=== PATIENT | female | born 1965 | race Caucasian/White ===

== ENCOUNTER 2024-09-28 11:24 | Outpatient (REF) | payer MEDICAID, SELFPAY ==
--- NOTE | ~2024-09-28 | XR_ITS ---
CLINICAL HISTORY: M25.559 - Pain in unspecified hip 1 view pelvis Comparison: None Findings: Severe degenerative change of both hip joints, xqnpv-[id number]-jkob-left. There is complete loss of the joint space bilaterally. There is also bulky osteophyte formation with likely intra-articular loose bodies. On the right, there is suggestion of subtle flattening of the femoral head spanning from the mid aspect of the far lateral aspect. Bulky osteophyte formation seen of the right femoral head/neck junction. Partial sacralization of the L5 vertebral body. No acute fracture or dislocation. Bilateral tubal ligation clips. IMPRESSION: Severe bilateral hip DJD, xqivo-kzpbuht-qvxo-left. Findings suggest subcortical insufficiency fracture of the right femoral head. This document has been electronically signed by: Guy Colorado MD on 09/30/2024 08:44:04
== END 2024-09-28 11:25 | disposition home or self-care (01) ==
LOC: HO.HOSX 11:24
PROVIDERS: PCP Nurse Practitioner Family; Visit Provider Orthopaedic Surgery
DX: M25.559 Pain in unspecified hip (principal); M16.0 Bilateral primary osteoarthritis of hip
CPT/HCPCS: 72170; 99202

== ENCOUNTER 2024-09-28 11:24 | Outpatient (AMB) | payer MEDICAID, SELFPAY ==
--- NOTE | 2024-09-28 11:35 | A.OFFVIS_ITS ---
Intake Visit Reasons: [employer]-B/L hip osteoarthritis Intake Note: Ella is a 59 year old female who presents today as a new patient for a second opinion of her Bilateral Hip OA. Patient is wheelchair dependent and on chronic opiates since 2021. Current smoker. Seen at [facility] with Dr. Diaz who is requiring 30 days free of nicotine. She reports that she needs to do the patch in order to quit. She explains that she has significant anxiety today HPI HPI [employer]AD [employer]-B/L hip osteoarthritis: Details: Ella is a 59 year old female who presents today as a new patient for a second opinion of her Bilateral Hip OA. Patient is wheelchair dependent and on chronic opiates since 2021. Current smoker. Seen at [facility] with Dr. Diaz who is requiring 30 days free of nicotine. She reports that she needs to do the patch in order to quit. She explains that she has significant anxiety today. He will describes proximally 2 years of severe bilateral hip pain. Both hips prevent her from walking comfortably. She uses a walker while at home and can not leave the house for significant periods of time without having to use a wheelchair. She feels disabled and the quality of her life is poor. She had bilateral knee replacements at [facility] many years ago and subsequently became dependent on opioids for which she started taking Suboxone and then was switched to methadone. She is unsure exactly how much methadone she is taking but she is unsure why she is taking it. She also smokes about 3 cigarettes a day. She is decreasing and has patches but was told that she needed to stop nicotine consumption completely. [facility] Surgical History (Updated 09/28/24 @ 11:46 by Ange Garcia CMA) History of total bilateral knee replacement (Unknown) Social History (Updated 09/28/24 @ 11:45 by Ange Garcia CMA) Patient Tobacco Use Status: Current everyday Tobacco user Cigarettes Per Day: 2 Physical Exam Extrem Other: There are bilateral impingement testing with groin pain reproduced on internal rotation. Antalgic gait with hip flexion on ambulation. 2+ dorsalis pedis pulse with healthy-appearing lower leg vascular status. Results Reviewed Results Reviewed: I personally reviewed relevant radiographs. Severe bilateral hip arthritis with loss of femoral head architecture Assessment & Plan Assessment & Plan (1) Osteoarthritis of hips, bilateral: Code(s): M16.0 - Bilateral primary osteoarthritis of hip Category: Medical Plan: This is a 59-year-old woman with severe osteoarthritis bilateral hips. Quality of her life is severely diminished and I recommend hip replacements. This is in many ways very straight forward. She has severe arthritis and, medically speaking, she appears to be low risk. Her primary risk factors include opioid dependence and mild nicotine dependence. She is deconditioned and overweight but this is acceptable and we expected given the extent of her arthritis. I reviewed this with her and I recommend proceeding forward with completion of smoking cessation, ambulation as tolerated, physical therapy for preoperative co nditioning and medical clearance with her primary care doctor. Furthermore I do think she would benefit from decreasing her methadone usage but I would leave this up to her for now and see if she can come down slightly over the next several months. I suspect that this surgery will occur in 3-4 months' time. I discussed the risks, benefits and alternatives with her including the risk of infection, dislocation, fracture, continued pain, need for further surgery. She expressed understanding and we will proceed forward accordingly. I have shared her information with our nurse navigator who will contact the patient going forward. Orders: Orders PT Evaluation and Treatment Today M16.0 - Bilateral primary osteoarthritis of hip XR pelvis 1-2V Today M25.559 - Pain in unspecified hip Coding Level of Care Code New Pt Level 4 (10524) Diagnoses Osteoarthritis of hips, bilateral M16.0
--- OUTSIDE RECORDS SUMMARY | 2024-09-28 14:23 | XMS_ITS | Data Portability ---
Author Organization [facility], [facility] Address [address] [place] [address] Care Team Providers Care Associate Principal Name Role Phone CARLIN THEODORE OTHER Assessment Encounter Date Assessment Date Assessment LastModified by Organization Details LastModified Time 12/25/2011 12/25/2011 Pelvic ultrasoun d: Technique: Study was performed with transabdominal and transvaginal technique. Transvaginal study was performed to better visualize both adnexa. The uterus is normal in size and diffusely heterogeneous in echotexture measuring 8.3 x 3.1 x 4.8 cm . A 3.0 cm rounded fibroid is seen anteriorly. The endometrium was difficult to define due to heterogeneous echotexture. The endometrium is measured as 3 mm. No adnexal mass lesion is seen. Both ovaries are visualized and normal in appearance. The right ovarian volume is 1.5 cc and left ovarian volume 4.6 cc. Impression: Heterogeneous uterine echotexture with a discrete 3 cm anterior uterine fibroid. Not available 12/25/2011 10:45:33 01/21/2012 01/21/2012 Bilateral digita l screening mammogram: Bilateral digital screening mammogram compared with prior mammograms. Breast tissue pattern is heterogeneously dense bilaterally limiting the sensitivity of mammography. Interpretation was made with the benefit of CAD. No dominant mass lesion or suspicious microcalcifications are seen in either breast. Impression: No mammographic evidence of malignancy. Annual screening mammography is recommended. ??BI-RADS 1: NEGATIVE Not available 01/21/2012 14:45:44 Plan of Treatment Reminders Order Date Submit Date Provider Last Modified By Organization Details Last Modified Time Details Appointments None recorded. Lab lipid panel 2011 012 [facility], [address] [place], [address], 3 03:04:42 Pap liquid based, reflex HPV, ascu 2011 012 [facility], [address] [place] [address], [address], 3 03:04:44 vitamin D,25-hydrox y 2011 012 [facility], [address] [place] [address], [address], 3 03:03:30 comprehensi ve metabolic panel 2011 012 [facility], [address] [place] [address], [address], 3 03:03:30 thyroid stimulating hormone (TSH) 2011 012 [facility], [address] [place] [address], [address], 3 03:03:30 CBC 2011 012 [facility], [address] [place] [address], [address], 3 03:03:30 Referral None recorded. Procedures None recorded. Surgeries None recorded. Imaging mammogram, screening - routine 2011 012 [facility], [address] [place] [address], [address], 3 03:04:42 ultrasound, pelvic transabdomi nal & transvagina l - worsening dyspareunia - pt questions obstruction 2011 012 [facility], [address] [place] [address], [address], 3 03:02:19 Medication Orders amoxicillin -potassium clavulanate 1,000 mg-62.5 mg tablet,ext. rel 12hr 2010 011 [id number], [address], [place], [id number], 3 05:39:26 Zithromax Z-Gerardo 250 mg tablet 2010 011 [facility] #19836, [address], [place], [id number], 3 05:39:26 Culturelle 10 billion cell capsule 2010 011 [facility] #78307, [address], [place], [id number], 3 05:39:26 prednisone 10 mg tablet 2010 011 [facility] #08294, [address], [place], [id number], 3 05:36:51 nicotine 21 mg/24 hr daily transdermal patch 2011 012 [facility], [address] [place] [address], [address], 3 03:05:47 nicotine (polacrilex ) 2 mg buccal lozenge 2011 012 [facility], [address] [place], [address], 3 03:03:35 DuoNeb 0.5 mg-3 mg(2.5 mg base)/3 mL solution for nebulizatio n 2011 012 [facility], [address] [place], [address], 3 03:04:50 Flovent HFA 220 mcg/actuati on aerosol inhaler 2011 012 [facility], [address] [place], [address], 3 03:03:35 Accolate 20 mg tablet 2011 012 [facility] [place] [place], [address] [place], [address], 3 03:03:35 ProAir HFA 90 mcg/actuati on aerosol inhaler 2011 012 [facility] [place] [place], [address] [place], [address], 3 03:03:35 Patient TargetsNo targets recorded. Patient Instructions Encounter Date Encounter Id Patient Instructions Last Modified By Organization Details Last Modified Time 08/20/2011 [id number] Quitting Tobacco : Care Instructions ANGELINE Not available 04/07/2013 05:34:08 Discussed smokin g cessation with patient , Patient is {{ready to quit and has adopted plan contemplatin g quitting but not ready* not interested in stopping at this time}} Not available 08/20/2011 16:26:50 12/24/2011 [id number] Quitting Tobacco : Care Instructions ANGELINE Not available 04/08/2013 03:05:47 deciding about using medicines to quit smoking ANGELINE Not available 04/08/2013 03:05:49 asthma action plan: after your visit ANGELINE Not available 04/08/2013 03:04:18 carpal tunnel syndrome: care instructions ANGELINE Not available 04/08/2013 03:04:14 Well Visit, Ages 18 to 65: Care Instructions ANGELINE Not available 04/08/2013 03:04:44 My Health To Do List Discussed smoking cessation with patient , Patient is {{ready to quit and has adopted plan* contemplati ng quitting but not ready not interested in stopping at this time}} Not available 12/28/2011 23:34:17 05/22/2015 [id number] Rx given for glasses Cataracts discussed jmerlin Not available 05/22/2015 10:56:16 Reason for Referral None Reported. Results Created Date Observation Date Name Description Value Unit Range Abnormal Flag Note LastModifiedBy Organization Detail LastModifiedTime 12/24/19 12 12/24/2011 CBC WBC 5.8 K/??? L 4.0-10 .0 Not Available [address], [address], 12/24/2011 11:28:36 12/24/19 12 12/24/2011 CBC RBC 4.82 M/??? L 3.93-5 .22 Not Available [address], [address], 12/24/2011 11:28:36 12/24/19 12 12/24/2011 CBC HGB 15.1 g/dL 11.2-1 5.7 Not Available [address], [address], 12/24/2011 11:28:36 12/24/19 12 12/24/2011 CBC HCT 42.2 % 34.1-4 4.9 Not Available [address], [address], 12/24/2011 11:28:36 12/24/19 12 12/24/2011 CBC MCV 87.6 ???L 79.4-9 4.8 Not Available [address], [address], 12/24/2011 11:28:36 12/24/19 12 12/24/2011 CBC MCH 31.3 pg 25.6-3 2.2 Not Available [address], [address], 12/24/2011 11:28:36 12/24/19 12 12/24/2011 CBC MCHC 35.8 g/dL 32.2-3 5.5 high Not Available [address], [address], 12/24/2011 11:28:36 12/24/19 12 12/24/2011 CBC plt 314.0 K/??? L 182.0- 369.0 Not Available [address], [address], 12/24/2011 11:28:36 12/24/19 12 12/24/2011 CBC MPV 11.2 9.4-12 .3 Not Available [address], [address], 12/24/2011 11:28:36 12/24/19 12 12/24/2011 CBC neut% 59.4 % 34.0-7 1.1 Not Available [address], [address], 12/24/2011 11:28:36 12/24/19 12 12/24/2011 CBC neut# 3.4 1.6-6. 1 Not Available [address], [address], 12/24/2011 11:28:36 12/24/19 12 12/24/2011 CBC lymph % 29.7 % 19.3-5 1.7 Not Available [address], [address], 12/24/2011 11:28:36 12/24/19 12 12/24/2011 CBC lymph # 1.7 K/??? L 1.2-3. 7 Not Available [address], [address], 12/24/2011 11:28:36 12/24/19 12 12/24/2011 CBC mono% 7.6 % 4.7-12 .5 Not Available [address], [address], 12/24/2011 11:28:36 12/24/19 12 12/24/2011 CBC mono# 0.4 0.2-0. 4 high Not Available [address], [address], 12/24/2011 11:28:36 12/24/19 12 12/24/2011 CBC eo% 2.8 % 0.7-5. 8 Not Available [address], [address], 12/24/2011 11:28:36 12/24/19 12 12/24/2011 CBC eo# 0.2 0.0-0. 4 Not Available [address], [address], 12/24/2011 11:28:36 12/24/19 12 12/24/2011 CBC baso% 0.5 % 0.1-1. 2 Not Available [address], [address], 12/24/2011 11:28:36 12/24/19 12 12/24/2011 CBC baso# 0.0 0.0-0. 1 low Not Available [address], [address], 12/24/2011 11:28:36 12/24/19 12 12/24/2011 CBC RDW-CV 12.7 % 11.7-1 4.4 Not Available [address], [address], 12/24/2011 11:28:36 12/24/19 12 12/24/2011 lipid panel cholesterol 177 mg/dL <200 mg/dL jeff able 200-2 39 mg/dL borde rline high >240 mg/dL high Not Available [address], [address], 12/24/2011 12:14:01 12/24/19 12 12/24/2011 lipid panel triglyceride s 89 mg/dL <200 <150 mg/dL maria fernanda l 150-1 99 mg/dL borde rline high 200-4 99 mg/dL high >500 mg/dL very high Not Available [address], [address], 12/24/2011 12:14:01 12/24/19 12 12/24/2011 lipid panel direct HDL 46 mg/dL Not Available [address], [address], 12/24/2011 12:14:01 12/24/19 12 12/24/2011 lipid panel direct LDL 107 mg/dL risk categ ory LDL goal _ CHD or CHD risk equiv alent s <100 mg/dL (10-y ear risk >20%) 2+ risk facto rs <130 mg/dL (10-y ear risk <= 20%) 0-1 risk facto r??? <160 mg/dL ??? almos t all peopl e with 0-1 risk facto r have a 10 year risk <10%, thus 10 year risk asses ment in peopl e with 0-1 risk facto r IS not kamila barbosa. Not Available [address], [address], 12/24/2011 12:14:01 12/24/19 12 12/24/2011 compr ehens shantel metab olic panel glucose 80 mg/dL 70-100 Not Available [address], [address], 12/24/2011 12:14:02 12/24/19 12 12/24/2011 compr ehens shantel metab olic panel BUN 4 mg/dL 7-18 low Not Available [address], [address], 12/24/2011 12:14:02 12/24/19 12 12/24/2011 compr ehens shantel metab olic panel creatinine 0.7 mg/dL 0.8-1. 3 low Not Available [address], [address], 12/24/2011 12:14:02 12/24/19 12 12/24/2011 compr ehens shantel metab olic panel B/C 5.7 ratio Not Available [address], [address], 12/24/2011 12:14:02 12/24/19 12 12/24/2011 compr ehens shantel metab olic panel GFR 100.9 mL/mi n recom davian d GFR by the natio nal kidne y found ation >60 mL/mi n/1.7 3m2 - maria fernanda l <60 mL/mi n/1.7 3m2 - chron ic kidne y disea se <15 mL/mi n/1.7 3m2 - kidne y failu re Not Available [address], [address], 12/24/2011 12:14:02 12/24/19 12 12/24/2011 compr ehens shantel metab olic panel GFR - if 116.0 mL/mi n for afric an ameri can patie nts: resul ts multi plied by 1.21 Not Available [address], [address], 12/24/2011 12:14:02 12/24/19 12 12/24/2011 compr ehens shantel metab olic panel sodium 137 mmol/ L 136-14 5 Not Available [address], [address], 12/24/2011 12:14:02 12/24/19 12 12/24/2011 compr ehens shantel metab olic panel potassium 4.4 mmol/ L 3.5-5. 1 Not Available [address], [address], 12/24/2011 12:14:02 12/24/19 12 12/24/2011 compr ehens shantel metab olic panel chloride 96 mmol/ L 96-107 Not Available [address], [address], 12/24/2011 12:14:02 12/24/19 12 12/24/2011 compr ehens shantel metab olic panel _anion gap 14.0 Not Available [address], [address], 12/24/2011 12:14:02 12/24/19 12 12/24/2011 compr ehens shantel metab olic panel CO2 27 mmol/ L 21-32 Not Available [address], [address], 12/24/2011 12:14:02 12/24/19 12 12/24/2011 compr ehens shantel metab olic panel calcium 9.6 mg/dL 8.5-10 .3 Not Available [address], [address], 12/24/2011 12:14:02 12/24/19 12 12/24/2011 compr ehens shantel metab olic panel total protein 7.5 g/dL 6.4-8. 2 Not Available [address], [address], 12/24/2011 12:14:02 12/24/19 12 12/24/2011 compr ehens shantel metab olic panel albumin 4.3 g/dL 3.4-5. 0 Not Available [address], [address], 12/24/2011 12:14:02 12/24/19 12 12/24/2011 compr ehens shantel metab olic panel globulin 3.2 g/dL Not Available [address], [address], 12/24/2011 12:14:02 12/24/19 12 12/24/2011 compr ehens shantel metab olic panel A/G 1.3 ratio 0.8-2. 0 Not Available [address], [address], 12/24/2011 12:14:02 12/24/19 12 12/24/2011 compr ehens shantel metab olic panel total bilirubin 0.40 mg/dL 0.00-1 .00 Not Available [address], [address], 12/24/2011 12:14:02 12/24/19 12 12/24/2011 compr ehens shantel metab olic panel AST 27 U/L 15-37 Not Available [address], [address], 12/24/2011 12:14:02 12/24/19 12 12/24/2011 compr ehens shantel metab olic panel ALT 35 U/L 30-65 Not Available [address], [address], 12/24/2011 12:14:02 12/24/19 12 12/24/2011 compr ehens shantel metab olic panel alk. phos. 81 U/L 50-136 Not Available [address], [address], 12/24/2011 12:14:02 12/24/19 12 12/24/2011 thyro id stimu latin g hormo ne (TSH) TSH 0.66 uIU/m L 0.50-6 .00 the ameri can colle ge of endoc rinol ogy and ameri can thyro id assoc iatio n recom mend goal TSH value s betwe en 1.0-2 .5 mIU/m L. Not Available [address], [address], 12/24/2011 12:24:15 12/24/19 12 12/25/2011 T3 free T3, free 3.2 pg/mL 2.3-4. 2 normal Not Available [employer] [facility] [address], [place], [address], 12/25/2011 06:01:00 12/24/19 12 12/25/2011 T4 free free T4 1.19 NG/dL 0.75-1 .54 Not Available [address], [address], 12/25/2011 09:10:22 12/24/19 12 12/28/2011 vitam in D,25- hydro xy vitamin D, 25-hydroxy, EIA 24.7 NG/mL 20.0-9 9.9 thera py IS based on measu remen t of total 25-oh d, with level s less than 20 NG/mL indic ative of vitam in D defic iency . level s betwe en 20NG/ mL and 30 NG/mL sugge st insuf ficie ncy. optim al level s are great er than 30 NG/mL . Not Available [address], [address], 12/28/2011 15:28:15 12/24/19 12 12/30/2011 vitam in B12 vitamin B12 557 pg/mL 230-10 50 Not Available [address], [address], 12/30/2011 09:51:41 12/24/19 12 12/30/2011 folat e folate 18 NG/mL 3-16 high Not Available [address], [address], 12/30/2011 11:51:41 10/22/19 12 10/16/2011 pulmo nary funct ion test* No observ ation record ed. [facility] (Outpt Imaging) [address] [place], [address], 04/07/2013 05:52:43 12/25/19 12 12/25/2011 ultra sound , pelvi c trans abdom inal & trans vagin al No observ ation record ed. [address], [address], 04/08/2013 03:01:05 01/22/20 12 01/21/2012 mammo gram, scree pradeep No observ ation record ed. [address], [address], 04/08/2013 03:08:43 05/02/20 23 04/30/2023 XR, knee, weigh tbear ing CLINIC AL HISTOR Y: Bilate ral knee pain. TECHNI QUE: AP, PA flexed , sunris e and latera l views of the right and left knees obtain ed. Weight bearin g images are includ ed. COMPAR JOSÉ MIGUEL: None. FINDIN GS: Right knee: There is a right total knee replac ement. The hardwa re is intact . There is no fractu re, sublux ation or disloc ation. Left knee: There is a right total knee replac ement. The hardwa re is intact . There is no fractu re, sublux ation or disloc ation. IMPRES LEIGHTON: No acute bone abnorm ality. Bilate ral knee replac ements . Readin g Physic cat: Randal France ms [facility] (Imaging) [address] , [place], [address], 05/04/2023 08:58:54 Result Notes None recorded. Problems Name Problem SNOMED Code Status Onset Date Resolution Date Notes Provider Name and Address Organization Details Recorded Time Nuclear sclerotic cataract 552631501 Active Arnel Steve, OD [address] [place] [address], [id number] , [facility] 5 10:56:16 Mixed hyperlipid emia 177020210 Active 2006 Not Available [facility] 3 03:12:31 Ocular hypertensi on 0240819 Completed 200507/27/2010 Not Available [facility] 3 03:12:31 Cellulitis and abscess of hand excluding digits Completed 200707/27/2010 Not Available [facility] 3 03:12:31 Gingival and periodonta l disease Active Not Available [facility] 3 03:12:31 Chronic bronchitis 68294367 Completed 200507/27/2010 Not Available [facility] 3 03:12:31 Osteoarthr itis of knee 996011908 Completed 200607/27/2010 Not Available [facility] 3 03:12:31 Open angle with borderline findings Active 2007 Not Available [facility] 3 03:12:31 Neck pain 90696864 Completed 200608/02/2013 Not Available [facility] 3 02:00:36 Influenza 6093486 Completed 07/27/2010 Not Available [facility] 3 03:34:33 Closed fracture of forearm 37527141 Completed 200507/27/2010 Not Available [facility] 3 03:12:31 Osteoarthr itis 308327235 Active 2008 Not Available [facility] 3 03:12:31 Localized, primary osteoarthr itis 384595634 Completed 200607/27/2010 Not Available [facility] 3 03:12:31 Major depression , melancholi c type 264228491 Active 2008 Not Available [facility] 3 03:12:31 Chronic gingivitis 08742180 Completed 200607/27/2010 Not Available [facility] 3 03:12:31 Pain in throat 569258861 Completed 07/27/2010 Not Available [facility] 3 03:12:31 Pneumonia 393592948 Completed 200507/27/2010 Not Available [facility] 3 03:12:31 Posterior subcapsula r polar senile cataract 8572413 Active 2005 Not Available [facility] 3 03:12:31 Knee pain Completed 200607/27/2010 Not Available [facility] 3 03:12:31 Joint pain 17897889 Completed 200807/27/2010 Not Available [facility] 3 03:12:31 Candidiasi s 41973980 Completed 200807/27/2010 Not Available [facility] 3 03:12:31 Acute maxillary sinusitis 61866726 Completed 200407/27/2010 Not Available [facility] 3 03:12:31 Periapical abscess with sinus tract 92299211 Completed 07/27/2010 Not Available [facility] 3 03:12:31 Disorder of jaw 90245515 Completed 200707/27/2010 Not Available [facility] 3 03:12:31 Hereditary retinal dystrophy 50352956 Completed 200507/27/2010 Not Available [facility] 3 03:12:31 Degenerati ve joint disease involving multiple joints 105367114 Completed 200607/27/2010 Not Available [facility] 3 03:12:31 Acute bronchitis 37177038 Completed 200407/27/2010 Not Available [facility] 3 03:12:31 Malaise and fatigue 745969925 Completed 200607/27/2010 Not Available [facility] 3 03:12:31 Cough 32253918 Completed 200407/27/2010 Not Available [facility] 3 03:12:31 Extrinsic asthma with asthma attack Active Not Available [facility] 3 03:34:33 Extrinsic asthma with asthma attack Completed 200407/27/2010 Not Available [facility] 3 03:12:31 Fever 041894095 Completed 200507/27/2010 Not Available [facility] 3 03:12:31 Chronic obstructiv e pulmonary disease 10942478 Active 2006 Not Available [facility] 3 03:12:31 Myopia 64054641 Active 2005 Arnel Steve, [address], [address] , [facility] 5 10:56:16 Intrinsic asthma 401933419 Active Not Available [facility] 3 03:34:33 Tobacco user 195914619 Active 2004 Not Available [facility] 3 03:12:31 Acute apical periodonti tis of pulpal origin 20674033 Completed 200807/27/2010 Not Available [facility] 3 03:12:31 Allergic asthma without status asthmaticu s 75240796 Active 2004 Not Available [facility] 3 03:12:31 Acute sinusitis 08396186 Completed 07/27/2010 Not Available [facility] 3 03:12:31 Joint pain in ankle and foot Completed 200608/02/2013 Not Available [facility] 3 02:01:26 Emphysemat ous bronchitis 372796241 Completed 200607/27/2010 Not Available [facility] 3 03:12:31 Disorder of teeth AND/OR supporting structures 040750884 Completed 200507/27/2010 Not Available [facility] 3 03:12:31 Acute upper respirator y infection 37047633 Completed 07/27/2010 Not Available [facility] 3 03:34:33 Periapical abscess without sinus tract Completed 200507/27/2010 Not Available [facility] 3 03:12:31 Common cold 32470215 Completed 07/27/2010 Not Available [facility] 3 03:12:31 Panic disorder without agoraphobi a 25717290 Completed 200407/27/2010 Not Available [facility] 3 03:12:31 Opioid dependence 05608313 Active 2007 Not Available [facility] 3 03:12:31 Current knee cartilage tear Completed 200407/27/2010 Not Available [facility] 3 03:12:31 Asthma 703611477 Active 2008 Not Available [facility] 3 03:12:31 Visual field defect 11114424 Active 2007 Not Available [facility] 3 03:12:31 Problem Notes None recorded. Procedures Surgical History Date Name Laterality Status Provider Name and Address Organization Details Recorded Time 05/22/20 15 Refraction completed Nayely Foreman MA [facility] 05/22/2015 09:58:16 12/24/19 12 Smoking cessation counseling completed Anayeli Rodriguez [facility] 12/24/2011 09:12:02 12/24/19 12 Asthma Control Test (12 + years old) completed Anayeli Rodriguez [facility] 12/24/2011 09:12:02 08/20/20 11 Smoking cessation counseling completed Anayeli Rodriguez [facility] 08/20/2011 16:05:01 09/13/19 10 Tubal Ligation completed Oneyda Prado NP [address] [place] [address], [address], [facility] 12/24/2011 09:48:33 07/10/20 09 Nebulizer Tx completed Naeem Lechuga NP [address] [place], [address], [facility] 07/10/2009 17:30:24 09/13/19 00 completed Oneyda Prado NP [address] [place] [address], [address], [facility] 12/24/2011 09:48:33 09/13/18 91 completed Oneyda Prado NP [address] [place] [address], [address], [facility] 12/24/2011 09:48:33 09/13/18 85 completed Oneyda Prado NP [address] [place] [address], [address], [facility] 12/24/2011 09:48:33 Cholecystectomy completed Oneyda Prado NP [address] [place], [address], [facility] 12/24/2011 09:48:33 Imaging Results Imaging Date Name Status LastModified by Organization Details LastModified Time 10/16/2011 pulmonary function test* completed [facility] (Outpt Imaging) [address] [place], [address], 04/07/2013 05:52:43 12/25/2011 ultrasound, pelvic transabdominal & transvaginal completed [address], [address], 04/08/2013 03:01:05 01/21/2012 mammogram, screening completed [address], [address], 04/08/2013 03:08:43 04/30/2023 XR, knee, weightbearing completed [facility] (Imaging) [address], [place], [address], 05/04/2023 08:58:54 Procedure Notes None recorded. Medical Equipment None Reported. Allergies Allergen ID Allergen Name Allergen Category Reaction Reaction Severity Criticality Documentation Date Start Date Code Code System Note Provider Name and Address Organization Details Recorded Time 55079 codeine medicatio n nausea vomiting Not available Not available Not available 02/07/2009 2670 RxNorm DID NOT take with food per PI=ok ay now per patie nt took cough syrup w/cod eine & was ok-LB artak ,rma Not Available [facility] 1 06:05:20 [address]12 doxycycli ne Not available other severe Not available 03/29/2009 3640 RxNorm high fever and thrus h Not Available [facility] 1 06:05:20 [address] Chantix medicatio n vomiting Not available Not available 12/24/2011 70729 0 RxNorm stick to stoma ch Anayeli Michael, FLORES adela, [facility] 2 09:04:21 Medications Name Sig Start Date Stop Date Status Note LastModified by Organization Details LastModified Time prednison e 10 mg tablet Take 4 tabs/day x 4 days, then 3 tabs/day x 3 days, then 2 tabs/day x 2 days, then 1 tab and stop. 2010 active Not Available Not Available Not Avai lable clindamyc in HCl 300 mg capsule Take 1 capsule every 6 hours by oral route. 2008 active Not Available Not Available Not Avai lable citalopra m 40 mg tablet Take 1 tablet every day by oral route in the evening. 2011 active Not Available Not Available Not Avai lable amitripty line 75 mg tablet Take 1 tablet (75 mg) by oral route once daily at bedtime 04/19 completed Not Available Not Available Not Available prednison e 20 mg tablet Take 3 tabs po qd x 5 07/18 completed Not Available Not Available Not Available clonazepa m 0.5 mg tablet Take 1 tablet 3 times a day by oral route. 2011 active Not Available Not Available Not Avai lable Zithromax Z-Gerardo 250 mg tablet Take 2 tablets (500 mg) by oral route once daily for 1 day then 1 tablet (250 mg) by oral route once daily for 4 days 2010 active Not Available Not Available Not Avai lable promethaz ine 6.25 mg-codein e 10 mg/5 mL syrup Take 10 mL every day by oral route as needed for 30 days. 2009 active Not Available Not Available Not Avai lable Mycelex 10 mg jenn Take 1 tablet 5 times a day by oral route. 2008 active Not Available Not Available Not Avai lable Guiatuss AC 10 mg-100 mg/5 mL oral liquid Take 10 mL every 4 hours by oral route as needed. 2008 active Not Available Not Available Not Avai lable DuoNeb 0.5 mg-3 mg(2.5 mg base)/3 mL solution for nebulizat ion Inhale 3 mL 4 times a day by nebuliza tion route. 2011 active Not Available Not Available Not Avai lable Amoxil 500 mg capsule Take 1 capsule 3 times a day by oral route. 2008 active Not Available Not Available Not Avai lable Celexa 20 mg tablet 2008 active Take 1 tab a day Now 40mg Not Available Not Available Not Available Nicoderm CQ 14 mg/24 hr daily transderm al patch Apply 1 patch every day by transder mal route for 30 days. 2009 active Not Available Not Available Not Avai lable Advair Diskus 250 mcg-50 mcg/dose powder for inhalatio n 2005 active Take 1 puff(s) inhaled 2 times a day Not Available Not Available Not Available nicotine 21 mg/24 hr daily transderm al patch Apply 1 patch every day by transder mal route. 2011 active Not Available Not Available Not Avai lable Advair Diskus 500 mcg-50 mcg/dose powder for inhalatio n active 1p BID Not Available Not Available Not Available ibuprofen 200 mg tablet Take 3-4 tablets by oral route every 8 hours as needed with food 2008 active Now tylenol* *Take 3-4 tablets by oral route every 8 hours as needed with food Not Available Not Available Not Available Culturell e 10 billion cell capsule Take 1 capsule twice daily between antibiot ic doses. 2010 active Not Available Not Available Not Avai lable prednisol one 15 mg/5 mL oral solution Take 15 mL every day by oral route for 5 days. 12/04 completed Not Available Not Available Not Available permethri n 1 % topical liquid Apply a sufficie nt amount of shampoo by topical route once allow to remain on hair for 10 minutes before rinsing off with water. Repeat in 7 days. 2010 active Not Available Not Available Not Avai lable Tylenol-C odeine #3 300 mg-30 mg tablet Take 1 tablet every 6 hours by oral route. 01/21 completed Not Available Not Available Not Available Percocet 5 mg-325 mg tablet 1-2 every 6 hrs for pain as needed 2008 active [facility] pt Not Available Not Available Not Available fluticaso ne propionat e 50 mcg/actua tion nasal spray,amadou pension 2 SPRAYS INTO EACH NOSTRIL ONCE A DAY 2008 active Not Available Not Available Not Avai lable Accolate 20 mg tablet Take 1 tablet(s ) twice a day by oral route. 2011 active Not Available Not Available Not Avai lable Flexeril 10 mg tablet Take 1 tablet (10 mg) by oral route qhs prn 2008 active Not Available Not Available Not Avai lable Tylenol Extra Strength 500 mg tablet Take 2 tablets as needed by oral route. 2011 active 3 days/wk Not Available Not Available Not Available Bactrim DS 800 mg-160 mg tablet Take 1 tablet every 12 hours by oral route for 10 days. 07/27 completed Not Available Not Available Not Available azithromy whitney 500 mg tablet Take 1 tablet every day by oral route for 5 days. 04/24 completed Not Available Not Available Not Available amoxicill in-[place] ium clavulana te 1,000 mg-62.5 mg tablet,ex t.rel 12hr Take 2 tablets every 12 hours by oral route for 10 days. 08/30 completed Not Available Not Available Not Available nicotine (polacril ex) 2 mg buccal lozenge Take 1 lozenge by mouth every 1-2 hours as needed. 2011 active Not Available Not Available Not Avai lable Spiriva with HandiH[employer] r 18 mcg and inhalatio n capsules 2011 active Take 1.00 caps daily Not Available Not Available Not Available Flovent HFA 220 mcg/actua tion aerosol inhaler Inhale 1 puff twice a day by inhalati on route then rinse mouth. 2011 active Not Available Not Available Not Avai lable Visine 2011 active prn allergie s Not Available Not Available Not Available multivita min 2008 active 1 qd Not Available Not Available Not Avai lable Chantix Starting Month Gerardo 0.5 mg (11)-1 mg (42) tablets in dose pack use as directed in dose pack 01/21 completed Not Available Not Available Not Available oxycodone -acetamin ophen 10 mg-500 mg tablet Take 1 tablet as needed by oral route at bedtime for 10 days. 02/07 completed Not Available Not Available Not Available ProAir HFA 90 mcg/actua tion aerosol inhaler Inhale 2 puffs by inhalati on route every 4-6 hours as needed. 2011 active Not Available Not Available Not Avai lable Vitals Date Recorded Body height Body weight Body mass index (BMI) Body temperature Systolic blood pressure Diastolic blood pressure Provider Name and Address Organization Details Last Updated DateTime 1 152.4 cm 75224.1 96369 g 26.3 kg/m2 99.5 [degF] 104 mm[Hg] 52 mm[Hg] Anayeli Rodriguez Marcy [facility] 1 16:04:10 Date Recorded Oxygen saturation Oxygen saturation in Arterial blood by Pulse oximetry Provider Name and Address Organization Details Last Updated DateTime 08/20/2011 93 % 93 % Anayeli Rodriguez Marcy [facility] 08/20/2011 16:06:59 Date Recorded Body height Body weight Body mass index (BMI) Provider Name and Address Organization Details Last Updated DateTime 12/24/2011 152.4 cm 36725.51636 6 g 23.9 kg/m2 Anayeli Rodriguez Marcy [facility] 12/24/2011 08:53:05 Date Recorded Heart rate Systolic blood pressure Diastolic blood pressure Provider Name and Address Organization Details Last Updated DateTime 12/24/2011 68 /min 96 mm[Hg] 60 mm[Hg] Anayeli Rodriguez [facility] 12/24/2011 09:03:25 Social History Question Answer Notes LastModified by Organizat ion Details LastModified Time Tobacco Smoking Status Current Every Day Smoker 1PPD (working on quitting; restarted 10/2010) DEIRDRE Etienne [facility] 11/29/2010 10:20:17 Do You Have An Advance Directive? Yes Lowell roger Information not available 02/07/2009 What Is Your Level Of Caffeine Consumption? None Tea= 2 Cups/day Information not available 12/24/2011 How Much Tobacco Do You Chew? None Never Information not available 04/27/2009 What Type Of Diet Are You Following? REGULAR Does Not Eat 3 Meals/day Information not available 12/24/2011 Education 11 Information no t available 12/24/2011 What Is Your Occupation? [employer] [email or web address] Information not available 07/30/2011 Live Alone Or With Others? With Others W/ And Smitha. Dog/4 Cats/fish Information not available 12/24/2011 Does The Patient Have Difficulty Speaking Burmese? No Information not available 12/24/2011 Does The Patient Have Difficulty Reading Burmese? No Information not available 12/24/2011 Marital Status Lowell (brain Cancer) pcarlan Information not available 11/29/2010 Mosquito Repellent Used Routinely No Information not available 12/24/2011 How Many Children Do You Have? 3 Andrzej (1985) Thalia (1990) Smitha(1999) Information not available 12/24/2011 Seat Belts Used Routinely Yes Information not available 12/24/2011 Are You Sexually Active? Yes [email or web address]_ [email or web address] Information not available 07/30/2011 Smoke Alarm In Home Yes Information not available 12/24/2011 General Stress Level High Thalia - Tumor Removed Information not available 12/24/2011 Do You Use Sunscreen Routinely? No Information not available 12/24/2011 Sex: Unknown Functional Status None recorded. Mental Status None recorded. Family History Relationship Description Onset Age of this Age Resolved Age Notes LastModified by Organization Details LastModified Time Mother Malignant tumor of lung 37 previo usly record ed as Cancer - Lung [email or web address] [id number] Not available 04/24/2013 03:00:42 Mother Depressive disorder 39 suicid e (previ ously record ed as Depres leighton) [email or web address] [id number] Not available 04/24/2013 03:00:42 Daughter Tuberous sclerosis syndrome Not available 04/24/2013 03:00:42 Sister Disorder of thyroid gland hypoth yroid (previ ously record ed as Thyroi d Diseas e) [email or web address] [id number] Not available 04/24/2013 03:00:42 Sister Disorder of thyroid gland hypoth yroid (previ ously record ed as Thyroi d Diseas e) [email or web address] [id number] Not available 04/24/2013 03:00:42 Sister Disorder of thyroid gland hypoth yroid (previ ously record ed as Thyroi d Diseas e) [email or web address] [id number] Not available 04/24/2013 03:00:42 Father Diabetes mellitus 45 previo usly record ed as Diabet es [email or web address] [id number] Not available 04/24/2013 03:00:42 Father Myocardial infarction 45 [email or web address] [id number] Not available 04/24/2013 03:00:42 Father Hypertensive disorder previo usly record ed as Hypert ension [email or web address] [id number] Not available 04/24/2013 03:00:42 Medical History Condition Response COPD Y Osteoarthritis Y Allergic Rhinitis Y Asthma Y Chronic Back Pain Y Gynecological History Statement/Question Response Current Control Method Date of LMP 09/13/2008 LMP Approximate Obstetrics History GPAL:G 0 P 0 0 0 0 Immunizations Vaccine Type Date Status Note Provider Nam e and Address Organization Details Recorded Time influenza, unspecified formulation 5 completed Not Available [facility] 07/29/2011 05:21:29 pneumococcal polysaccharide PPV23 5 completed Not Available [facility] 07/29/2011 05:21:29 Tdap 2 completed Not Available [facility] 09/30/2019 02:15:46 Past Encounters Encounter ID Performer Location Encounter Start Date Encounter Closed Date Diagnosis/Indication Diagnosis SNOMED-CT Code Diagnosis ICD10 Code Diagnosis Note [id number] [facility], OFFICE [address] [place] [address] [place] [id number] 1 09/25/2004 12:51:49 10/03/2008 02:02:29 [id number] [facility], OFFICE [address] [place] [address] [place] [id number] 1 10/29/2004 08:59:45 10/29/2004 11:20:01 [id number] [facility], OFFICE [address] [facility] [place] [id number] 1 11/10/2004 12:49:00 11/10/2004 16:22:43 [id number] [facility], OFFICE [address] [place] Abhijit mccurdy, DEIRDRE [id number] 1 11/14/2004 14:21:19 11/14/2004 17:49:37 [id number] [facility], OFFICE [address] [place] Abhijit mccurdy, DEIRDRE [id number] 1 12/29/2004 12:52:04 10/03/2008 02:02:29 [id number] [facility], OFFICE [address] [place] Abhijit mccurdy, DEIRDRE [id number] 1 03/27/2005 12:39:28 03/27/2005 14:25:32 [id number] [facility], OFFICE [address] [place] Abhijit mccurdy, DEIRDRE [id number] 1 05/04/2005 14:53:00 05/04/2005 16:49:28 [id number] [facility], OFFICE [address] [place] Abhijit mccurdy, DEIRDRE [id number] 1 08/12/2005 08:17:00 08/12/2005 10:50:21 [id number] [facility], OFFICE [address] [facility] Miracle mccurdy, DEIRDRE [id number] 1 10/30/2005 10:43:43 10/30/2005 17:56:01 [id number] [facility], OFFICE [address] [facility] Miracle mccurdy, DEIRDRE [id number] 1 12/04/2005 08:39:25 12/04/2005 11:41:46 [id number] [facility], [facility] [place] [place] [address] [facility] Miracle mccurdy, DEIRDRE [id number] 12/26/2005 00:00:00 10/03/2008 02:02:29 [id number] [facility], OFFICE [address] [facility] Miracle mccurdy, DEIRDRE [id number] 1 01/11/2006 10:34:20 01/11/2006 15:12:49 [id number] [facility], OFFICE [address] [facility] Miracle mccurdy, DEIRDRE [id number] 1 03/02/2006 14:15:41 10/03/2008 02:02:29 [id number] [facility], OFFICE [address] [place] Abhijit mccurdy, DEIRDRE [id number] 1 03/08/2006 07:23:58 03/08/2006 14:44:20 [id number] [facility] [address] [place] [id number] 1 04/19/2006 10:24:01 10/03/2008 02:02:29 [id number] [facility], OFFICE DEIRDRE [id number] 1 04/28/2006 08:32:39 04/28/2006 11:32:42 [id number] [facility], OFFICE [address] [place] [id number] 1 05/21/2006 10:22:13 05/21/2006 15:17:03 [id number] [facility], OFFICE [address] [place] [id number] 1 07/10/2006 10:08:59 07/13/2006 06:28:57 [id number] [facility], OFFICE [address] mccurdy, DEIRDRE [id number] 1 07/29/2006 15:29:19 07/30/2006 06:25:09 [id number] [facility], OFFICE [address] [place] [id number] 1 08/30/2006 16:42:37 08/31/2006 06:43:47 [id number] [facility], [place] [id number] 1 09/02/2006 16:52:36 10/03/2008 02:02:29 [id number] [facility], [place] [id number] 1 10/01/2006 10:17:08 10/01/2006 15:56:55 [id number] [facility], [place] [id number] 1 10/26/2006 10:50:41 10/26/2006 17:33:00 [id number] [facility], [place] [id number] 1 11/08/2006 15:06:05 11/08/2006 15:54:28 [id number] Radiology [facility] [address] [place] [id number] 1 11/17/2006 10:40:24 11/17/2006 14:58:30 [id number] [facility], OFFICE [address] [place] [id number] 1 12/21/2006 15:45:03 12/22/2006 06:44:16 [id number] [facility], OFFICE [address] Abhijit mccurdy, DEIRDRE [id number] 1 01/01/2007 12:32:12 01/03/2007 06:28:23 [id number] [facility], OFFICE [address] m[place], DEIRDRE [id number] 1 02/05/2007 11:22:17 02/08/2007 06:29:10 [id number] [facility], OFFICE [address] mccurdy, DEIRDRE [id number] 1 02/10/2007 15:11:55 02/11/2007 14:59:27 [id number] [facility], OFFICE [address] mccurdy, DEIRDRE [id number] 1 05/26/2007 13:04:33 05/26/2007 16:57:49 [id number] [facility], OFFICE [address] [place] [address] Miracle mccurdy, DEIRDRE [id number] 1 06/23/2007 10:59:00 06/23/2007 15:26:02 [id number] [facility], OFFICE [address] mccurdy, DEIRDRE [id number] 1 07/13/2007 16:56:52 10/03/2008 02:02:29 [id number] [facility] [place] [address] Dont[address] mccurdy, DEIRDRE [id number] 1 07/26/2007 14:51:33 07/27/2007 06:47:41 [id number] [facility] [place] [address] [address] Mccurdy, DEIRDRE [id number] 1 07/27/2007 08:36:51 07/27/2007 08:37:47 [id number] [facility], OFFICE [address] [place], [place] [address]lanre mccurdy, DEIRDRE [id number] 1 07/26/2007 08:28:21 10/03/2008 02:02:29 [id number] [facility], [address] Miracle mccurdy, DEIRDRE [id number] 08/19/2007 00:00:00 10/03/2008 02:02:29 [id number] [facility], OFFICE [address] [place] [address] Miracle mccurdy, DEIRDRE [id number] 1 08/30/2007 15:22:32 10/03/2008 02:02:29 [id number] [facility], OFFICE [address] mccurdy, DEIRDRE [id number] 1 09/22/2007 13:04:24 10/03/2008 02:02:29 [id number] [facility], OFFICE [address] mccurdy, DEIRDRE [id number] 1 02/02/2008 09:37:34 10/03/2008 02:02:29 [id number] LAB - [facility] Rico Mccurdy, DEIRDRE [id number] 1 02/03/2008 08:01:39 02/03/2008 08:01:57 [id number] Eye Care, [facility] Rico mccurdy, DEIRDRE [id number] 1 03/26/2008 09:41:37 03/27/2008 10:26:02 [id number] Eye Care, [facility] Rico mccurdy, DEIRDRE [id number] 1 04/05/2008 09:31:28 04/06/2008 11:55:36 [id number] [facility], OFFICE [address] mccurdy, DEIRDRE [id number] 1 05/22/2008 08:19:00 10/03/2008 02:02:29 [id number] [facility], OFFICE [address] mccurdy, DEIRDRE [id number] 1 06/18/2008 09:07:10 10/03/2008 02:02:29 [id number] [facility], OFFICE [address] mccurdy, DEIRDRE [id number] 1 07/26/2008 11:05:51 10/03/2008 02:02:29 [id number] [facility], OFFICE [address] mccurdy, DEIRDRE [id number] 1 12/05/2008 11:07:42 12/06/2008 09:14:52 [id number] [facility], OFFICE [address] mccurdy, DEIRDRE [id number] 1 12/26/2008 15:05:22 12/27/2008 10:26:03 [id number] [facility], OFFICE [address] mccurdy, DEIRDRE [id number] 1 12/31/2008 17:34:41 01/01/2009 08:17:24 [id number] [facility], OFFICE [address] mccurdy, DEIRDRE [id number] 1 01/21/2009 12:39:27 01/22/2009 09:21:24 [id number] [facility], OFFICE [address] Abhijit mccurdy, DEIRDRE [id number] 1 01/28/2009 13:46:14 01/29/2009 08:35:08 [id number] [facility], OFFICE [address] Abhijit mccurdy, DEIRDRE [id number] 1 02/07/2009 08:16:26 02/08/2009 09:44:33 [id number] Radiology , [facility] [address] [facility] Miracle mccurdy, DEIRDRE [id number] 1 02/07/2009 09:45:23 02/08/2009 14:53:10 [id number] [facility], OFFICE [address] Abhijit mccurdy, DEIRDRE [id number] 1 02/22/2009 17:19:06 02/25/2009 08:59:42 [id number] [facility], OFFICE [address] Abhijit mccurdy, DEIRDRE [id number] 1 03/29/2009 09:07:32 04/01/2009 09:22:53 [id number] [facility], OFFICE [address] Abhijit mccurdy, DEIRDRE [id number] 1 04/19/2009 11:12:01 04/22/2009 10:31:20 [id number] [facility], OFFICE [address] Abhijit mccurdy, DEIRDRE [id number] 1 04/27/2009 10:09:21 04/29/2009 09:36:30 [id number] [facility], OFFICE [address] Abhijit mccurdy, DEIRDRE [id number] 1 07/10/2009 15:58:55 07/11/2009 08:25:40 [id number] Radiology , [facility] [address] [place] Abhijit mccurdy, DEIRDRE [id number] 1 02/07/2009 00:00:00 07/11/2009 02:00:52 [id number] LAB - [facility] [address] Abhijit Mccurdy, DEIRDRE [id number] 1 02/07/2009 09:59:30 02/07/2009 09:59:38 [id number] [facility], [address] Miracle mccurdy, DEIRDRE [id number] 03/09/2009 00:00:00 07/11/2009 02:00:52 [id number] Radiology , [facility] Rico mccurdy, DEIRDRE [id number] 1 10/31/2009 15:58:03 11/01/2009 11:18:53 [id number] [facility], OFFICE Rico mccurdy, DEIRDRE [id number] 1 07/15/2010 15:48:57 07/16/2010 08:11:32 [id number] [facility], OFFICE [address] mccurdy, DEIRDRE [id number] 1 07/17/2010 15:45:27 07/18/2010 08:26:51 [id number] Radiology , [facility] Rico mccurdy, DEIRDRE [id number] 1 07/17/2010 16:11:55 07/17/2010 16:32:29 [id number] [facility], OFFICE [address] m[address], DEIRDRE [id number] 1 11/29/2010 10:07:42 12/01/2010 07:51:11 [id number] [facility], OFFICE [address] mccurdy, DEIRDRE [id number] 1 08/20/2011 15:52:20 08/21/2011 08:22:49 [id number] [facility], OFFICE Rico mccurdy, DEIRDRE [id number] 1 12/24/2011 08:39:41 12/24/2011 10:22:36 [id number] Radiology , [facility] Rico mccurdy, DEIRRDE [id number] 1 12/25/2011 09:10:30 12/28/2011 13:46:59 [id number] Radiology , [facility] Rico mccurdy, DEIRDRE [id number] 1 01/21/2012 09:30:59 01/25/2012 09:10:04 [id number] Arnel Steve, OD Eye Care, [facility] Rico mccurdy, DEIRDRE [id number] 1 05/22/2015 09:03:41 05/22/2015 10:52:23 Myopia [id number] Nuclear sc 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 Presbyopia [id number] Health Concerns Section Related Observation LastModified by Organization Detai ls LastModified Time None Recorded Concern Status LastModified by Organization Details LastModified Time None Recorded Advance Directives Directive Y: Lowell Payers Encounter Date Sequence Insurance Name Policy Number Policy Brown Covered Member ID Brown Member ID Guarantor Name 08/20/2011 1 [facility] - PLAN TYPE 3 (MEDICAID HMO) [id number] Ella Mo [id number] Ella Mo 12/24/2011 1 [facility] - PLAN TYPE 3 (MEDICAID HMO) [id number] Ella Mo [id number] Ella Mo 12/25/2011 1 [facility] - PLAN TYPE 3 (MEDICAID HMO) [id number] Ella Mo [id number] Ella Mo 01/21/2012 1 [facility] - PLAN TYPE 3 (MEDICAID HMO) [id number] Ella Mo [id number] Ella Mo 05/22/[address] [facility] (MEDICAID HMO) [id number] Ella Mo [id number] Ella Mo Notes Date Note Type Note Provider Name and Address Organization Details Recorded Time 08/20/2011 text/html Sx as above. Sick x 1 month. Was given Z-gerardo at [facility] in June for pneumonia, felt better for a few days, then started feeling sick again. She's wheezing; uses Duoneb 2x/noc, perhaps 1x/day. Dtr had brain surgery 3 wks ago; she's taking care of 20yo dtr and (w/ brain tumor), also 11yo dtr (healthy). Oneyda Prado, JABIER [address] [place] [address], [place], [id number], [facility] [place] 08/20/2011 20:54:21 OBGyn Episode No OBEpisode recorded.
== END 2024-09-28 13:09 | disposition home or self-care (01) ==
PROVIDERS: PCP Nurse Practitioner Family; Visit Provider Orthopaedic Surgery
DX: M16.0 Bilateral primary osteoarthritis of hip (principal)
CPT/HCPCS: 99204

== ENCOUNTER → 2024-11-28 09:18 | Outpatient (BNVA) | payer MEDICAID, SELFPAY | PROVIDERS: PCP Nurse Practitioner Family | DX: Z01.818 Encounter for other preprocedural examination (principal) ==

== ENCOUNTER 2025-01-02 06:36 | Outpatient (REF) | payer MEDICAID, SELFPAY ==
--- OUTSIDE RECORDS SUMMARY | 2025-01-03 06:39 | XMS_ITS | Encounter Summary ---
Author Organization [employer] Address [address] [place] [address] [address] [place] [address] Care Team Providers Care Tractor Operator Name Role Phone Annie Coto Unavailable Kristan Ayers Unavailable [phone] Armen Kristan Unavailable [phone] Omayra Bernal NP Primary Care Provider [phone] Reason for Referral * Imaging (Routine) - Closed Specialty Diagnoses / Procedures Referred By Contac t Referred To Contact Radiology Diagnoses Breast cancer screening by mammogram Procedures BI Mammogram Screening Bilateral Omayra Bernal NP [address] [place] [address] Phone: tel: fax: Referral ID Status Reason Start Date Expiration Date Visits Re quested Visits Authorized [id number] Closed 12/06/2023 12/05/2024 1 1 Encounter Details Date Type Department Care Team (Late st Contact Info) Description 12/06/[address] [facility] [address] [place] [phone] Omayra Bernal NP [address] [place] [address] Breast cancer screening by mammogram Social History Tobacco Use Types Packs/Day Years Used Date Smoking Tobacco: Every Day Cigarettes Passive Smoke Exposure: Past Smokeless Tobacco: Never Alcohol Use Standard Drinks/Week Comments Not Currently 0 (1 standard drink = 0.6 oz pur e alcohol) Alcohol Answer Date Recorded How often do you have a drink containing alcohol ? 0 08/30/2023 How many drinks containing a lcohol do you have on a typical day when you are drinking? 0 08/30/2023 How often do you have six or more drinks on one occasion? 0 08/30/2023 Depression Answer Date Recorded Patient Health Questionnaire-9 Score 17 08/30/2023 Patient Health Questionnaire-9 Score 17 08/30/2023 Last PHQ-9: Questionnaire Data Not on file 1 10/31/2022 Housing Stability Answer Date Recorded What is your housing situation today? I have mirtha harini 06/28/[address] you li ve. Do you have problems with any of the following? None of the above 06/28/2023 Food Insecurity Answer Date Recorded Within the past 12 months, y ou worried that your food would run out before you got money to buy more: Never True 08/30/2023 Within the past 12 months,th e food you bought just didn't last and you didn't have enough money to get more: Never True Transportation Answer Date Recorded In the past 12 months, has l ack of transportation kept you from medical appts, meetings, work or from getting things needed for daily living? No 08/30/2023 Intimate Partner Violence Answer Date R ecorded Within the last year, have y ou been afraid of your partner or ex-partner? 2 08/30/2023 Within the last year, have y ou been humiliated or emotionally abused in other ways by your partner or ex-partner? 2 Within the last year, have y ou been kicked, hit, slapped, or otherwise physically hurt by your partner or ex-partner? 2 08/30/2023 Within the last year, have y ou been raped or forced to have any kind of sexual activity by your partner or ex-partner? 2 08/30/2023 Utilities Answer Date Recorded In the past 12 months, has t he electric, gas, oil or water company threatened to shut off services in your home? No 08/30/2023 Depression Answer Date Recorded Patient Health Questionnaire-2 Score 6 08/30/2023 Comments No Sex and Gender Information Value Date Recorded Sex Assigned at Female 10/29/2022 4:57 PM EST Legal Sex Female 6:20 PM EDT Gender Identity Female 07/10/2022 6:20 PM EDT Sexual Orientation Straight 07/10/2022 6: 20 PM EDT documented as of this encounter Plan of Treatment Scheduled Orders Name Type Priority Associated Diagnoses Orde r Schedule BI Mammogram Screening Bilateral Imaging Routine Breast cancer screening by mammogram Expected: 12/06/2023 (Approximate), Expires: 12/05/2024 documented as of this encounter Procedures Procedure Name Priority Date/Time Associated Diagnosis Comments BI MAMMOGRAM SCREENING TOMOSYNTHESIS BILATERAL Routine 12/20/2023 8:58 AM EDT documented in this encounter Results * BI Mammogram Screening Tomosynthesis Bilateral (12/20/2023 8:58 AM EDT) Anatomical Region Laterality Modality Breast Bilateral Mammography 12/20/2023 8:58 AM EDT Narrative 12/20/2023 12:04 PM EDT PROCEDURE: ??MM Digital Mammo Screening CLINICAL INDICATION: 58 years old Female for screening. COMPARISON: Digital mammograms of 2008 and 2014. TECHNIQUE: ??Full field digital CC and MLO 3D tomosynthesis images of both breasts were acquired. Computer -aided detection (CAD) was utilized in the interpretation of this study. DENSITY: There are scattered areas of fibroglandular density. FINDINGS: Normal bilateral axillary lymph nodes noted. 0.3 cm intramammary lymph node again seen posterolaterally in the LEFT breast unchanged. Small numbers of scattered, benign appearing microcalcifications are noted bilaterally. No new masses, suspicious groups of microcalcifications, areas of architectural distortion, skin thickening or nipple retraction are seen in either breast. IMPRESSION: 1. ??No mammographic evidence of malignancy. RECOMMENDATION: Annual mammographic screening BI-RADS ??2 - Benign. Lay letter mailed to patient. WSN: [id number] Ordering Physician: Omayra Bernal Dictated By: ?Kenny Burgos MD Dictated Date/Time: ?12/20/23 12:01 pm Reviewed By: ?Kenny Burgos MD Signed By: ? Kenny Burgos MD Signed Date/Time: ? 12/20/23 12:01 pm Transcribed By: ? CSB Vat Skimmer Date/Time: ? 12/20/23 11:51 am Birads: Procedure Note Donotuseinterpreter, Image - 12/20/2023 PROCEDURE: MM Digital Mammo Screening CLINICAL INDICATION: 58 years old Female for screening. COMPARISON: Digital mammograms of 2008 and 2014. TECHNIQUE: Full field digital CC and MLO 3D tomosynthesis images ofboth breasts were acquired. Computer -aided detection (CAD) was utilized inthe interpretation of this study. DENSITY: There are scattered areas of fibroglandular density. FINDINGS: Normal bilateral axillary lymph nodes noted. 0.3 cm intramammary lymphnode again seen posterolaterally in the LEFT breast unchanged. Small numbers of scattered, benign appearing microcalcifications arenoted bilaterally. No new masses, suspicious groups of microcalcifications, areas ofarchitectural distortion, skin thickening or nipple retraction are seen in eitherbreast. IMPRESSION: 1. No mammographic evidence of malignancy. RECOMMENDATION: Annual mammographic screening BI-RADS 2 - Benign. Lay letter mailed to patient. WSN: [id number] Ordering Physician: Omayra Bernal Dictated By: Kenny Burgos MD Dictated Date/Time: 12/20/23 12:01 pm Reviewed By: Kenny Burgos MD Signed By: Kenny Burgos MD Signed Date/Time: 12/20/23 12:01 pm Transcribed By: CSB Vat Skimmer Date/Time: 12/20/23 11:51 am Birleopoldo: Omayra Bernal NP IMG BI PROCEDURES Final Result documented in this encounter Visit Diagnoses Diagnosis Breast cancer screening by mammogram documented in this encounter Additional Health Concerns Assessment Noted Time PHQ-9 Depression Total Score: 17 12/18/2 023 10:11 AM EST documented as of this encounter Care Teams Tractor Operator Relationship Specialty Start Date End Date Omayra Bernal NP [address] [place] [address] PCP - General Family Medicine 06/28/23 [place] [facility] [id number] 03/30/23 03/28/24 [place] [address] [place] [address] 04/23/23 05/16/24 [place], [place] [address] [place] [address] 06/10/23 05/16/24 documented as of this encounter
--- OUTSIDE RECORDS SUMMARY | 2025-01-03 06:39 | XMS_ITS | Encounter Summary ---
Author Organization [employer] Address [address] [facility] 7t [place] [address] Care Team Providers Care Fiscal Specialist Name Role Phone Annie Coto Unavailable Kristan Ayers Unavailable [phone] Kristan Ayers Unavailable Omayra Bernal ACCOUNT ANALYST Primary Care Provider [phone] Encounter Details Date Type Department Care Team (Late st Contact Info) Description 12/02/[address] [facility] [address] [place] [address] Omayra Bernal, JABIER [address] [place] [address] Social History Tobacco Use Types Packs/Day Years [...] your housing situation today? I have mirtha schuler 06/28/[address] you li [...] PM EDT documented as of this encounter Miscellaneous Notes * Telephone Encounter - Lizzette Jasmine - 12/02/2023 11:21 AM EDT SHARON sent to [employer] for [employer] * Telephone Encounter - Thalia Srinivasan - 12/02/2023 10:54 AM EDT Pt Is calling , they had to pay for Pregabalin 75mg last time on 09/23/23 , was told would need a prior auth for it to be covered for the next refill , pt has 6 left , could a PA be put in now for this documented in this encounter Plan of Treatment Not on file documented as of this encounter Visit Diagnoses Not on filedocumented in this encounter Additional Health Concerns Assessment Noted Time PHQ-9 Depression Total Score: 17 023 10:11 AM EST documented as of this encounter Care Teams Fiscal Specialist Relationship Specialty Start Date End Date Omayra Bernal NP [address] [place] [address] PCP - General Family Medicine 06/28/23 Annie Coto [address] [place] [address] 03/30/23 03/28/24 Kristan Ayers [address] [place] [address] 04/23/23 05/16/24 Armen Kristan [address] [place] [address] 06/10/23 05/16/24 documented as of this encounter
--- OUTSIDE RECORDS SUMMARY | 2025-01-03 06:39 | XMS_ITS | Encounter Summary ---
Author Organization [employer] Address [address] [facility] 7t [place] [address] Care Team Providers Care Pickling Tank Operator Name Role Phone Annie Coto Unavailable Kristan Ayers Unavailable [phone] Kristan Ayers Unavailable [phone] Omayra Bernal DRILL RIG OPERATOR HELPER Primary Care Provider [phone] Encounter Details Date Type Department Care Team (Late st Contact Info) Description 02/03/[address] [place] [address] Omayra Bernal NP [address] [place] [address] Social History Tobacco Use Types Packs/Day Years [...] * Telephone Encounter - Lizzette Jasmine - 02/03/2024 11:23 AM EDT PA HAS BEEN SENT FOR LYRICA 100MG, SHE HAS A PA ACTIVE FOR THE 75MG DOSE * Telephone Encounter - Milo Helmage - 02/03/2024 9:04 AM EDT Patient informs she needs a prior authorization on her pregabalin. She said last time she picked itup at the pharmacy she had to pay for it because it wasn't sent to insurance first. documented in this encounter Plan of Treatment Not on file documented as of this encounter Visit Diagnoses Not on filedocumented in this encounter Additional Health Concerns Assessment Noted Time PHQ-9 Depression Total Score: 17 023 10:11 AM EST documented as of this encounter Care Teams Pickling Tank Operator Relationship Specialty Start Date End Date Omayra Bernal NP [address] [place] [address] PCP - General Family Medicine 06/28/23 Annie Coto [address] [place] [address] 03/30/23 03/28/24 Kristan Ayers [address] [place] [address] 04/23/23 05/16/24 Kristan Ayers [address] [place] [address] 06/10/23 05/16/24 documented as of this encounter
--- OUTSIDE RECORDS SUMMARY | 2025-01-03 06:39 | XMS_ITS | Encounter Summary ---
Author Organization [employer] Address [address] [facility] 7 [place] [address] Care Team Providers Care Antiquer Name Role Phone Omayra Bernal NP Primary Care Provider [phone] Encounter Details Date Type Department Care Team (Late st Contact Info) Description 08/28/2024 Telephone [facility] [address] [place] [phone] Omayra Bernal NP [address] [place] [address] Social History Tobacco Use Types Packs/Day Years [...] the past 12 months, has t he [employer], gas, oil or water company threatened to shut off services in your home? No 08/30/2023 Depression Answer Date Recorded Patient Health Questionnaire-2 Score 6 08/30/2023 Internet Access Answer Date Recorded Internet Access Q1 Yes 05/30/2024 Internet Access Q2 Not on file 05/30/2024 Comments No Sex and Gender Information Value Date Recorded Sex Assigned at Female 10/29/2022 4:57 PM EST Legal Sex Female 6:20 PM EDT Gender Identity Female 07/10/2022 6:20 PM EDT Sexual Orientation Straight 07/10/2022 6: 20 PM EDT documented as of this encounter Miscellaneous Notes * Telephone Encounter - Ann Barnes - 08/31/2024 2:32 PM EST Referral has been processed * Telephone Encounter - Ann Barnes - 08/29/2024 4:28 PM EST Talked to Omayra She will call and process referral In the morning * Telephone Encounter - Katharine Hathaway - 08/28/2024 10:38 AM EST Checking on the status of her referral for hip surgery. Please advise [phone] (It shows still pending since 08/01) documented in this encounter Plan of Treatment Not on file documented as of this encounter Visit Diagnoses Not on filedocumented in this encounter Additional Health Concerns Assessment Noted Time PHQ-9 Depression Total Score: 17 023 10:11 AM EST documented as of this encounter Care Teams Antiquer Relationship Specialty Start Date End Date Omayra Bernal NP [address] [place] [address] PCP - General Family Medicine 06/28/23 documented as of this encounter
--- OUTSIDE RECORDS SUMMARY | 2025-01-03 06:39 | XMS_ITS | Encounter Summary ---
Author Organization [employer] Address [address] [facility] 7 [place] [address] Care Team Providers Care Certified Family Mediator Name Role Phone Omayra Bernal NP Primary Care Provider [phone] Encounter Details Date Type Department Care Team (Late st Contact Info) Description 10/20/2024 Telephone [facility] [address] [place] [phone] Omayra Bernal NP [address] [place], [place] [phone] Social History Tobacco Use Types Packs/Day Years [...] Answer Date Recorded Patient Health Questionnaire-9 Score 22 10/20/2024 Patient Health Questionnaire-9 Score 22 10/20/2024 Last PHQ-9: Questionnaire Data Not on file 0 10/20/2024 Housing Stability Answer Date Recorded What is your housing situation today? I have mirtha schuler 10/20/[address] you li ve. Do you have problems with any of the following? None of the above 10/20/2024 Food Insecurity Answer Date Recorded Within the past 12 months, y ou worried that your food would run out before you got money to buy more: Never True 10/20/2024 Within the past 12 months,th e food you bought just didn't last and you didn't have enough money to get more: Never True 03/2025 Transportation Answer Date Recorded In the past 12 months, has l ack of transportation kept you from medical appts, meetings, work or from getting things needed for daily living? Yes, it has kept me from medical appointments or getting medications. 10/20/2024 Intimate Partner Violence Answer Date R ecorded [...] the past 12 months, has t he [employer], oil or water [employer] threatened to shut off services in your home? Yes 10/20/2024 Depression Answer Date Recorded Patient Health Questionnaire-2 Score 6 10/20/2024 Internet Access Answer Date Recorded Internet Access [...] encounter Miscellaneous Notes * Telephone Encounter - Kirti Dawson - 10/20/2024 1:03 PM EST Faxed * Telephone Encounter - Katharine Hathaway - 10/20/2024 11:56 AM EST Option 2 please fax a current med list and also any last office not to [phone] documented in this encounter Plan of Treatment Not on file documented as of this encounter Visit Diagnoses Not on filedocumented in this encounter Additional Health Concerns Assessment Noted Time PHQ-9 Depression Total Score: 22 025 4:32 PM EST documented as of this encounter Care Teams Certified Family Mediator Relationship Specialty Start Date End Date Omayra Bernal NP [facility] [place] [address] PCP - General Family Medicine 06/28/23 documented as of this encounter
--- OUTSIDE RECORDS SUMMARY | 2025-01-03 06:39 | XMS_ITS | Encounter Summary ---
Author Organization [employer] Address [address] [facility] 7t [place] [address] Care Team Providers Care Paper Bag Making Machinist Name Role Phone Annie Coto Unavailable Kristan Ayers Unavailable [phone] Kristan Ayers Unavailable [phone] Omayra Bernal NP Primary Care Provider [phone] Reason for Visit * Reason Comments Med Refill Encounter Details Date Type Department Care Team (Late st Contact Info) Description 09/09/2023 Refill [facility] [address] [place] [phone] Ginny Ospina FNP [address] [place] [address] Idiopathic peripheral autonomic neuropathy Social History Tobacco Use Types Packs/Day Years [...] encounter Miscellaneous Notes * Telephone Encounter - Omayra Bernal NP - 09/10/2023 6:41 AM EST duplicate * Telephone Encounter - Angelita Kelly LPN - 09/09/2023 1:17 PM EST PCP: Omayra Bernal NP PDMP last fill: 08/16/2023 Refill due: 09/14/2022 Med contract within the past year? Yes Last tox screen date: 04/02/2023 Lab Results Component Value Date AMPHETAMINES NEGATIVE 04/02/2023 BARBITURATES NEGATIVE 04/02/2023 BENZODIAZEPI NEGATIVE 04/02/2023 BUPRENORPHIN NEGATIVE 04/02/2023 COCAINE NEGATIVE 04/02/2023 FENTANYL NEGATIVE 04/02/2023 HEROINMETAB NEGATIVE 04/02/2023 MARIJUANA POSITIVE (A) 04/02/2023 MDMA NEGATIVE 04/02/2023 MEPROBAMATE NEGATIVE 04/02/2023 METHADONE POSITIVE (A) 04/02/2023 METHADONE >500.0 (H) 04/02/2023 NICOTINEMET POSITIVE (A) 04/02/2023 OPIATES NEGATIVE 04/02/2023 PHENCYCLIDIN NEGATIVE 04/02/2023 TAPENTADOL NEGATIVE 04/02/2023 TRAMADOL NEGATIVE 04/02/2023 ZOLPIDEM NEGATIVE 04/02/2023 Last in-person office visit: 08/30/2023 Omayra Bernal NP Future Appointments Date Time Provider Department Center 10/15/2023 1:20 PM Omayra Bernal NP [facility] Comments: Refill request a little early and no recent utox. documented in this encounter Plan of Treatment Not on file documented as of this encounter Visit Diagnoses Diagnosis Idiopathic peripheral autonomic neuropathy Idiopathic peripheral autonomic neuropathy, unspecified documented in this encounter Additional Health Concerns Assessment Noted Time PHQ-9 Depression Total Score: 17 023 10:11 AM EST documented as of this encounter Care Teams Paper Bag Making Machinist Relationship Specialty Start Date End Date Omayra Bernal NP [address] [place] [address] PCP - General Family Medicine 06/28/23 Annie Coto [address] [place] [address] 03/30/23 03/28/24 Ayers Kristan [address] [place] [address] 04/23/23 05/16/24 [place] [address] [place] [address] 06/10/23 05/16/24 documented as of this encounter
--- OUTSIDE RECORDS SUMMARY | 2025-01-03 06:39 | XMS_ITS | Encounter Summary ---
Author Organization [employer] Address [address] [facility] 7 [place] [address] Care Team Providers Care Foam Cutting Supervisor Name Role Phone Omayra Bernal NP Primary Care Provider [phone] Encounter Details Date Type Department Care Team (Late st Contact Info) Description 10/05/2024 Telephone [facility] [address] [place] [phone] Omayra Bernal NP [address] [place], [place] [phone] Social History Tobacco Use Types Packs/Day Years [...] the past 12 months, has t he [employer], gas, oil or water company threatened to [...] * Telephone Encounter - Ann Barnes - 10/17/2024 10:31 AM EST Processed and faxed Auth #[id number] Valid 10/06/24-10/06/25 Visits: 20 * Telephone Encounter - Milo Cuenca - 10/05/2024 3:02 PM EST Provider left a voicemail asking for a referral for physical therapy, they're asking for 20 visits with an NPI of [phone] and a start date of 10/06/24. Their call back number is [phone] documented in this encounter Plan of Treatment Not on file documented as of this encounter Visit Diagnoses Not on filedocumented in this encounter Additional Health Concerns Assessment Noted Time PHQ-9 Depression Total Score: 17 023 10:11 AM EST documented as of this encounter Care Teams Foam Cutting Supervisor Relationship Specialty Start Date End Date Omayra Bernal NP [address] [place] [address] PCP - General Family Medicine 06/28/23 documented as of this encounter
--- OUTSIDE RECORDS SUMMARY | 2025-01-03 06:40 | XMS_ITS | Encounter Summary ---
Author Organization [employer] Address [address] [place] [address] Care Team Providers Care Acura Sales Consultant Name Role Phone Angelita Allred Primary Care Provider Unavailab panda Annie Coto Unavailable AyersKristan Unavailable [phone] AyersKristan Unavailable [phone] Omayra Bernal NP Primary Care Provider [phone] Encounter Details Date Type Department Care Team (Late st Contact Info) Description 03/18/[address] [phone] Angelita Allred FNP Social History Tobacco Use Types Packs/Day Years Used Date Smoking Tobacco: Every Day Cigarettes Passive Smoke Exposure: Past Smokeless Tobacco: Never Alcohol Use Standard Drinks/Week Comments Not Currently 0 (1 standard drink = 0.6 oz pur e alcohol) Comments No Sex and Gender Information Value Date Recorded Sex Assigned at Female 10/29/2022 4:57 PM EST Legal Sex Female 6:20 PM EDT Gender Identity Female 07/10/2022 6:20 PM EDT Sexual Orientation Straight 07/10/2022 6: 20 PM EDT COVID-19 Exposure Response Date Recorded In the last 10 days, have yo u been in contact with someone who was confirmed or suspected to have Coronavirus/COVID-19? No / Unsure 03/05/2023 9:28 AM EDT documented as of this encounter Miscellaneous Notes * Telephone Encounter - Kirti Dawson - 03/22/2023 9:40 AM EDT Unable to reach patient, closing task * Telephone Encounter - Dionne Bradford - 03/20/2023 8:57 AM EDT No answer, left message to call back. * Telephone Encounter - Angelita Kelly LPN - 03/18/2023 2:51 PM EDT YEVGENIY Rene P [facility] Nurse Triage Please inform patient that their imaging is normal. * Telephone Encounter - Sweetie Hutton - 03/18/2023 2:50 PM EDT Script sent today documented in this encounter Plan of Treatment Not on file documented as of this encounter Visit Diagnoses Not on filedocumented in this encounter Care Teams [employer]cura Sales Consultant Relationship Specialty Start Date End Date Angelita Allred FNP PCP - General Family Medicine 08/25/22 06/27/23 Omayra Bernal NP [address] [place] [address] PCP - General Family Medicine 06/28/23 Annie Coto [address] [place] [id number] 03/30/23 03/28/[address] [address] 04/23/23 05/16/[address] [address] 06/10/23 05/16/24 documented as of this encounter
--- OUTSIDE RECORDS SUMMARY | 2025-01-03 06:40 | XMS_ITS | Encounter Summary ---
Author Organization [employer] Address [address] [place] [address] 7 [place] [address] Care Team Providers Care Electric Sealing Machine Operator Name Role Phone Annie Coto Unavailable Kristan Ayers Unavailable Armen Kristan Unavailable [phone] Omayra Bernal INSPECTOR QUALITY ASSURANCE Primary Care Provider [phone] Reason for Referral * Consultation (Routine) - Authorized Specialty Diagnoses / Procedures Referred By Shaye acosta Referred To Contact Physical Therapy Diagnoses Stress incontinence of urine Omayra Bernal NP [address] [place] [address] Phone: tel: [facility] ([address]) [place] [address] Phone: tel: fax: Referral ID Status Reason Start Date Expiration Date Visits Requested Visits Authorized [id number] Authorized Specialty Services Required 02/23/2024 02/22/2025 20 20 Encounter Details Date Type Department Care Team (Late st Contact Info) Description 02/21/2024 Telephone [facility] [address] [place] [phone] Omayra Bernal NP [address] [place] [address] Social History Tobacco Use Types Packs/Day Years [...] * Telephone Encounter - Ann Barnes - 02/23/2024 1:02 PM EDT Processed and faxed * Telephone Encounter - Omayra Bernal NP - 02/23/2024 9:31 AM EDT Referral entered. Please fax. Thanks! * Telephone Encounter - Katharine Hathaway - 02/21/2024 10:25 AM EDT Needs an updated pelvic floor therapy order . . Has a February 23 appointment documented in this encounter Plan of Treatment Scheduled Referrals Name Type Priority Associated Diagnoses Orde r Schedule Referral to Physical Therapy Outpatient Referral Routine Stress incontinence of urine Expected: 02/23/2024 (Approximate), Expires: 02/22/2025 documented as of this encounter Visit Diagnoses Diagnosis Stress incontinence of urine- Primary documented in this encounter Additional Health Concerns Assessment Noted Time PHQ-9 Depression Total Score: 17 023 10:11 AM EST documented as of this encounter Care Teams Electric Sealing Machine Operator Relationship Specialty Start Date End Date Omayra Bernal NP [address] [place] [address] PCP - General Family Medicine 06/28/23 Annie Coto [address] [place] [address] 03/30/23 03/28/24 Kristan Ayers [address] [place] [address] 04/23/23 05/16/24 [place] [address] [place] [address] 06/10/23 05/16/24 documented as of this encounter
--- OUTSIDE RECORDS SUMMARY | 2025-01-03 06:40 | XMS_ITS | Encounter Summary ---
Author Organization [employer] Address [address] [facility] 7 [place] [address] Care Team Providers Care Typing Secretary Name Role Phone Omayra Bernal NP Primary Care Provider Encounter Details Date Type Department Care Team (Late st Contact Info) Description 05/31/2024 Telephone [facility] [address] [place] [id number] Omayra Bernal NP [address] [place] [address] Social History Tobacco Use Types Packs/Day Years [...] the past 12 months, has t he [employer] gas, oil or water company threatened to [...] * Telephone Encounter - Kirti Dawson - 06/01/2024 10:51 AM EDT Patient aware and already picked up * Telephone Encounter - Sade Barber - 05/31/2024 3:20 PM EDT No answer * Telephone Encounter - Lizzette Renee - 05/31/2024 12:31 PM EDT Patient calling in regards to getting Lorazepam prescribed, patient stated that its needed to help her stop smoking [facility] [place] documented in this encounter Plan of Treatment Not on file documented as of this encounter Visit Diagnoses Not on filedocumented in this encounter Additional Health Concerns Assessment Noted Time PHQ-9 Depression Total Score: 17 023 10:11 AM EST documented as of this encounter Care Teams Typing Secretary Relationship Specialty Start Date End Date Omayra Bernal NP [address] [place] [address] PCP - General Family Medicine 06/28/23 documented as of this encounter
--- OUTSIDE RECORDS SUMMARY | 2025-01-03 06:40 | XMS_ITS | Encounter Summary ---
Author Organization [email or web address] Address [address] [place] [address] Care Team Providers Care Magneto Specialist Name Role Phone Angelita Allred Primary Care Provider Unavailab panda Annie Coto Unavailable AyersKristan noe Unavailable [phone] AyersKristan noe Unavailable [phone] Omayra Bernal NP Primary Care Provider [phone] Reason for Visit * Reason Onset Date Comments CHW - Transportation 06/09/2023 Pt would li ke a call about scheduling a PT 1 for an upcoming orthopedic appt. Pt states that we usually help coordinate the transportation for her. [phone] Encounter Details Date Type Department Care Team (Late st Contact Info) Description 06/09/2023 Telephone [facility] [address] [place] [phone] Candido Suarez FNP CHW - Transportation (Pt would like a call about scheduling a PT 1 for an upcoming orthopedic appt. Pt states that we usually help coordinate the transportation for her. [phone]) Social History Tobacco Use Types Packs/Day Years [...] as of this encounter Plan of Treatment Not on file documented as of this encounter Visit Diagnoses Not on filedocumented in this encounter Care Teams Magneto Specialist Relationship Specialty Start Date End Date Angelita Allred FNP PCP - General Family Medicine 08/25/22 06/27/23 Omayra Bernal NP [address] [place] [address] PCP - General Family Medicine 06/28/23 Annie Coto [address] [place] [address] 03/30/23 03/28/24 [place], [place] [address] [place] [address] 04/23/23 05/16/24 [place], [place] [address] [place] [address] 06/10/23 05/16/24 documented as of this encounter
--- OUTSIDE RECORDS SUMMARY | 2025-01-03 06:40 | XMS_ITS | Data Portability ---
Author Organization Formerly [facility] [employer], [place] Address [address] [place] [address] [place] [id number] Care Team Providers Care Senior Designer/Art Director Name Role Phone EDA CENTENO Referring Provider BETSEY RUBY Primary Care Provider BETSEY RUBY Referring Provider Assessment Encounter Date Assessment Date Assessment LastModified by Organization Details LastModified Time 09/01/2021 09/01/2021 IMPRESSION: ? Daily headaches and bimonthly debilitating migraines -- Numbness episodes, 1 to 3 years in duration, seconds long of one of the other foot or both feet bilaterally after extended sitting that causes falling when she stands from toilet; 20 minutes long of right hand or hands bilaterally waking her at night and at waking in the morning --Forgetfulness so that her daughter helps her with her medication organizer, her daughter helps her with the bills, she forgets items on the stove during cooking. -- neurological exam reflects hyperreflexia including right greater than left clonus? 5-8 beats, moderate crossed adductors and marked Speedy sign. I am concerned that her hyperreflexia together with her hand and foot numbness might reflect cervical myelopathy. We will move toward MRI cervical spine imaging. I will get B12 studies, copper and vitamin D to assess for deficiency that might predispose to her numbness episodes of both hands and feet and/or memory dysfunction. PCP ordered blood work: HbA1c, CMP, thyroid panel, CBC, KARMA, brain MRI with and without contrast. Hypothyroidism or diabetes can predispose to focal neuropathy and diabetes can predispose to polyneuropathy as well. I defer to primary care to address any abnormalities in these directions. Venlafaxine XR might help for both headaches and her depression. But she is already on Paxil. I offer amitriptyline for her headaches, describe some possible side effects and she agrees. PLAN Ella Hassan September 01, 2021 For causes of your hand and foot numbness: At [facility] MRI facility: MRI cervical spine without contrast At [facility] laboratory: LABORATORIES: B12 studies, vitamin E, copper, vitamin D For headaches: Amitriptyline 10 mg tablets: 1.0 tablet nightly 1.5 tablets nightly one week 2 tablets nightly afterwards as tolerated Amitriptyline may cause drowsiness, bladder hesitation, and dry mouth, and increased appetite. If side effects are mild, wait a few days. If side effects are not mild, or if they do not go away after a few days, return to the previous dose at which you did not have side effects. (If you have dry mouth: Try sugarless candy for dry mouth. Alternatively, Biotene, once every morning, apix-koi-dswexua liquid may also help dry mouth) Follow-up afterwards keith Not available 09/01/2021 14:06:35 10/13/2021 10/13/2021 IMPRESSION: ? Headaches partially better on amitriptyline 20 mg, without side effects, no longer every day, and no migraines in 6 weeks context previous bimonthly debilitating migraines -- Numbness episodes, 1 to 3 years in duration, seconds long of one of the other foot or both feet bilaterally after extended sitting that causes falling when she stands from toilet; 20 minutes long of right hand or hands bilaterally waking her at night and at waking in the morning --Forgetfulness so that her daughter helps her with her medication organizer, her daughter helps her with the bills, she forgets items on the stove during cooking. Brain MRI April 02, 2021 obtained by primary care has been unrevealing. --Depression, on sertraline from [facility], seeming worse today with teariness. -- neurological exam September 01, 2020 has reflected hyperreflexia including right greater than left clonus? 5-8 beats, moderate crossed adductors and marked Speedy sign. MRI cervical spine September 15, 2021 is unrevealing. DATA REVIEWED: IMAGING MRI cervical spine without contrast, September 15, 2021, per dictation Loraine Kan neuroradiology [facility]: Cervical cord is normal and no significant central spinal canal stenosis. Mild multilevel degenerative changes, mild at C4-5 left neuroforaminal and at most minimal at other locations. LABORATORIES: September 15, 2021 B12 studies, vitamin E, copper, vitamin D all normal -- although vitamin D, 20.2 is at the lower boundary of normal (and would be mildly abnormal by other laboratory protocols). She declines physical therapy for gait and balance. She declines referral to occupational therapy to help with fitting of her carpal tunnel splints. She cannot commit to either without dependable transportation. She does not have a car. I suggested microspikes to protect against falling on ice and she knows what these are as her ? who has ? used to have them. I had been concerned that her hyperreflexia together with her hand and foot numbness might reflect cervical myelopathy. None is seen. Thoracic myelopathy is not excluded as explanation of foot symptomatology and clonus. I do not have results yet of thyroid studies and hyperreflexia may come from hyperthyroidism. 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 I suggest EMG & nerve conduction studies for elucidation of her foot numbness. If no lower extremity neuropathy is seen, MRI thoracic spine can be considered. PCP ordered blood work: HbA1c, CMP, thyroid panel, CBC, KARMA, b and March 2021. I will try to find the results. HEADACHE Amitriptyline 20 mg has helped partially without side effects. We agreed on increase. JUAN DIEGO Hassan October 13, 2021 FOR CAUSES OF YOUR HAND AND FOOT NUMBNESS: EMG & nerve conduction studies of lower extremities FOR HEADACHES: Increase amitriptyline by switching from 10 mg tablets up to 25 mg tablets: Amitriptyline 25 mg tablets: 1.0 tablet nightly one weekly 1.5 tablets nightly one week 2 tablets nightly afterwards as tolerated Amitriptyline may cause drowsiness, bladder hesitation, and dry mouth, and increased appetite. If side effects are mild, wait a few days. If side effects are not mild, or if they do not go away after a few days, return to the previous dose at which you did not have side effects. (If you have dry mouth: Try sugarless candy for dry mouth. Alternatively, Biotene, once every morning, ridc-vua-xrijqok liquid may also help dry mouth) WALKING AND CARPAL TUNNEL SYNDROME Physical therapy and occupational therapy may help both of these problems. You do not want to commit to either because you do not have a car for dependable transportation. Please consider talking with primary care to get medical transport set up so that you can have physical therapy and Occupational Therapy. Please obtain micro spikes and wear them to prevent falling on ice. DEPRESSION You were teary and feeling depressed during our time today. You do have several problems that can get anyone down. However, at least with me, none of the problems are life-threatening and I think they are all treatable. Please see your psychiatric healthcare provider, Vidal at [facility], to see if they can change your medication to improve your mood and quality of life while we try to address your neurological issues. VITAMIN D You take supplementation but your vitamin D level is borderline low. Low vitamin D can contribute to memory slowing. Please work with primary care for any monitoring that they suggest or any change in your dosage of vitamin D that they suggest to keep your vitamin D level normal. EMG & nerve conduction studies follow-up in 5 weeks to discuss the results of those studies and the results for your headaches of increasing amitriptyline Norman Mac MD, PhD [facility] Follow-up afterwards keith Not available 10/13/2021 13:12:54 02/24/2022 02/24/2022 IMPRESSION: ? Headaches partially better on amitriptyline 20 mg, without side effects, no longer every day, and no migraines in 6 weeks context previous bimonthly debilitating migraines -- Numbness episodes, 1 to 3 years in duration, seconds long of one of the other foot or both feet bilaterally after extended sitting that causes falling when she stands from toilet; 20 minutes long of right hand or hands bilaterally waking her at night and at waking in the morning, Reporting remote diagnosis of carpal tunnel syndrome, with splints that she cannot wear because they are uncomfortable; NO report of diagnosis of neuropathy to explain her foot numbness. -- neurological exam September 01, 2020 has reflected hyperreflexia including right greater than left clonus? 5-8 beats, moderate crossed adductors and marked Speedy sign. --MRI cervical spine without contrast, September 15, 2021: cord normal, no significant central canal stenosis --September 15, 2021 B12 studies, vitamin E, copper, vitamin D all normal -- although vitamin D, 20.2 is at the lower boundary of normal --Forgetfulness so that her daughter helps her with her medication organizer, her daughter helps her with the bills, she forgets items on the stove during cooking. Brain MRI April 02, 2021 obtained by primary care has been unrevealing. --[facility], seeming worse today with teariness. GAIT, HAND/WRIST PAIN She now has transportation. She would like physical therapy for her gait is a higher priority, and after that occupational therapy for her hand/wrist pain to adjust her splints. I had been concerned that her hyperreflexia together with her hand and foot numbness might reflect cervical myelopathy. None is seen. Thoracic myelopathy is not excluded as explanation of foot symptomatology and clonus. I do not have results yet of thyroid studies and hyperreflexia may come from hyperthyroidism. 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 I suggest EMG & nerve conduction studies for elucidation of her foot numbness. If no lower extremity neuropathy is seen, MRI thoracic spine can be considered. PCP ordered blood work: HbA1c, CMP, thyroid panel, CBC, KARMA, in March 2021. I will try to find the results. HEADACHE Amitriptyline 20 mg has helped partially without side effects. We agreed on increase slowly to 50mg (Again, after I forgot to increase her pill size following previous appointment). --- PLAN Ella Hassan February 24, 2022 FOR CAUSES OF YOUR HAND AND FOOT NUMBNESS: EMG & nerve conduction studies of lower extremities FOR HEADACHES: Increase amitriptyline by switching from 10 mg tablets up to 25 mg tablets: Amitriptyline 25 mg tablets: 1.0 tablet nightly one weekly 1.5 tablets nightly one week 2 tablets nightly afterwards as tolerated Amitriptyline may cause drowsiness, bladder hesitation, and dry mouth, and increased appetite. If side effects are mild, wait a few days. If side effects are not mild, or if they do not go away after a few days, return to the previous dose at which you did not have side effects. (If you have dry mouth: Try sugarless candy for dry mouth. Alternatively, Biotene, once every morning, sfhn-lrm-cnnmphx liquid may also help dry mouth) WALKING AND CARPAL TUNNEL SYNDROME You now have transportation to get to physical or occupational therapy. Your walking problems bother you more than your hand/wrist discomfort at night. You decide we will do the physical therapy for walking first, and then occupational therapy to move toward hand splints that fit better to help your hand discomfort. Physical therapy for gait assessment and treatment, using a walker, with intermittent falls including some not using the walker [facility] ([place]) [address] [place] [address] A referral has been sent to this physical therapy office. However, you have to make an initial phone call, to the number below, to set up the initial appointment. DEPRESSION You feel that you will always be depressed. You talk to your psychiatric healthcare provider, Vidal at [facility], once a month, please ask her for a change in medication for your depression and to help with your outlook on life. Follow-up after EMG & nerve conduction studies Norman Mac MD, PhD [facility] keith Not available 02/24/2022 10:54:54 Plan of Treatment Reminders Order Date Submit Date Provider Last Modified By Organization Details Last Modified Time Details Appointments None recorded. Lab homocystein e, serum or plasma - D51.9 2020 [email or web address] 1 [facility] (Centralized Electronic Ordering - All Locations), Patient Can Go To The Location Of Their Choice, 11:09:35 mma (methylmalo dony acid), serum - D51.9 2020 ANGELINE [facility] (Centralized Electronic Ordering - All Locations), Patient Can Go To The Location Of Their Choice, 12:06:59 vitamin B12, serum - d51.9 2020 ANGELINE [facility] (Centralized Electronic Ordering - All Locations), Patient Can Go To The Location Of Their Choice, 21:22:40 folate, serum - d51.9 2020 ANGELINE [facility] (Centralized Electronic Ordering - All Locations), Patient Can Go To The Location Of Their Choice, 21:22:41 vitamin D, 25-hydroxy, total, serum - E55.9 2020 ANGELINE [facility] (Centralized Electronic Ordering - All Locations), Patient Can Go To The Location Of Their Choice, 21:22:42 vitamin E, serum - E56.0 2020 ANGELINE [facility] (Centralized Electronic Ordering - All Locations), Patient Can Go To The Location Of Their Choice, 11:06:02 copper, serum or plasma - E83.00 2020 ANGELINE [facility] (Centralized Electronic Ordering - All Locations), Patient Can Go To The Location Of Their Choice, 05:05:48 Referral None recorded. Procedures None recorded. Surgeries None recorded. Imaging MRI, cervical spine, w/o contrast - Episodic hand and foot numbness, hyperreflex ia with right greater than left ankle clonus and marked Speedy signs bilaterally 2020 [facility] ([facility]), [address] [place] [address], [id number], 14:17:11 Medication Orders amitriptyli ne 25 mg tablet 2021 ANGELINE [id number], [address] [place], [place], [phone], 10:27:47 amitriptyli ne 10 mg tablet 2021 022 ANGELINE [facility] #[id number], [address] [place] [address], [place], [phone], 12:45:31 Patient TargetsNo targets recorded. Patient Instructions Encounter Date Encounter Id Patient Instructions Last Modified By Organization Details Last Modified Time 10/13/2021 [id number] Nguyen parker Not available 12:37:58 02/24/2022 [id number] Nguyen louisossen Not available 10:22:December She declines physical therapy for gait and balance. She declines referral to occupational therapy to help with fitting of her carpal tunnel splints. She cannot commit to either without dependable transportation. She does not have a car. I suggested microspikes to protect against falling on ice and she knows what these are as her ? who has ? used to have them. ...teary and feeling depressed during our time today. You do have several problems that can get anyone down. However, at least with me, none of the problems are life-threatening and I think they are all treatable. ...VITAMIN D You take supplementation but your vitamin D level is borderline low. Low vitamin D can contribute to memory slowing. Please work with primary care for any monitoring that they suggest or any change in your dosage of vitamin D that they suggest to keep your vitamin D level normal. mrossen Not available 02/24/2022 10:51:54 Reason for Referral None Reported. Results Created Date Observation Date Name Description Value Unit Range Abnormal Flag Note LastModifiedBy Organization Detail LastModifiedTime 09/15/19 22 09/15/2021 VITAM IN B12 vitamin B12 594 pg/mL (232-1 245) Not Available [facility] (Centralized Electronic Ordering - All Locations) Patient Can Go To The Location Of Their Choice, 09/15/2021 21:22:40 09/15/19 22 09/15/2021 FOLIC ACID folic acid 18.2 NG/mL (4.8-3 7.3) Not Available [facility] (Centralized Electronic Ordering - All Locations) Patient Can Go To The Location Of Their Choice, 09/15/2021 21:22:41 09/15/19 22 09/15/2021 25OH VITAM IN D 25OH vitamin D 20.7 NG/mL (20-50 ) Not Available [facility] (Centralized Electronic Ordering - All Locations) Patient Can Go To The Location Of Their Choice, 09/15/2021 21:22:42 09/15/19 22 09/17/2021 COPPE R copper 125 Refer ence range : 80 to 158 Unit: ug/dL (NOTE ) This test was devel oped and its perfo rmanc e mauricio cteri stics deter mined by [facility]. It has not been clear ed or appro nely by the Food and Drug Admin istra tion. Detec tion Limit EQ 5 Test perfo rmed at [facility] , [address] [place] [address] Not Available [facility] (Centralized Electronic Ordering - All Locations) Patient Can Go To The Location Of Their Choice, 09/17/2021 05:05:48 09/15/1909/18/2021 METHY LMALO DONY ACID, SERUM methylmaloni c acid, serum 141 Refer ence range : 0 to 378 Unit: nmol/ L (NOTE ) This test was devel oped and its perfo rmanc e mauricio cteri stics deter mined by [facility]. It has not been clear ed or appro nely by the Food and Drug Admin istra tion. Test [facility] at [facility] , [address] [place] [address] Not Available [facility] (Centralized Electronic Ordering - All Locations) Patient Can Go To The Location Of Their Choice, 09/18/2021 12:06:59 09/15/19 22 2021 VITAM IN E vitamin E 7.8 Refer ence range : 7.0 to 25.1 Unit: mg/L (NOTE ) This test was devel oped and its perfo rmanc e mauricio cteri stics deter mined by [facility]. It has not been clear ed or appro nely by the Food and Drug Admin istra tion. Not Available [facility] (Centralized Electronic Ordering - All Locations) Patient Can Go To The Location Of Their Choice, [id number] 2021 11:05:59 09/15/19 22 2021 VITAM IN E betA/Gamma tocopherol 2.3 Refer ence range : 0.5 to 5.5 Unit: mg/L (NOTE ) This test was devel oped and its perfo rmanc e mauricio cteri stics deter mined by [facility]. It has not been clear ed or appro nely by the Food and Drug Admin istra tion. Refer ence inter vals for alpha and gamma -toco phero l deter mined from [facility] [employer]ami natio n Surve y, 2004- 2005. Indiv idual s with alpha -toco phero l level s less than 5.0 mg/L are consi dered vitam in E defic ient. Test perfo rmed at [facility] , [address] [place] [address] , [place] [address] Not Available [facility] (Centralized Electronic Ordering - All Locations) Patient Can Go To The Location Of Their Choice, [id number] 2021 11:05:59 09/15/19 22 09/15/2021 MRI, cervi trinity spine , w/o contr ast [facility] [facility] Access ion Number : [id number] [address] t Name: Ella Baker CaptureProofrosemarie gregory Record Number : [id number] Date of : 1965 Date of Exam: 2021 Referr ing Physic cat: Tamy Mac MD Neurol [facility] [address] [facility] [address] [place] [id number] Exam: MR Cervic al Spine (C-) CPT 26894 Room Descri ption: Luther Siem Espr 1.5 INDICA TION: Cervic al disc disord er with myelop athy, high cervic al region . COMPAR JOSÉ MIGUEL: None. TECHNI QUE: Multis equenc e multip lanar MRI of the cervic al spine was perfor med withou t contra st. FINDIN GS: Image qualit y is mildly degrad ed by motion . The verteb ral bodies are normal in height . Sagitt al alignm ent is mainta ined. There are multil evel degene rative endpla te marrow signal change s and endpla te osteop hytes, and there is mild multil evel loss of interv ertebr al disc height most promin ently at the C4-C5 and C5-C6 levels . The visual ized teenage babysitter ior fossa struct ures are normal . The cervic al spinal cord is normal in calibe r and signal . The parasp inal and prever tebral soft tissue s are unrema rkable . The major vascul ar flow voids are preser nely. At C2-C3, there is no spinal canal or neural forami nal stenos is. At C3-C4, there is a teenage babysitter ior disc osteop hyte comple x and there is uncove rtebra l joint spurri ng. There is no signif icant narrow ing of the spinal canal. There is minima l left and no signif icant right neural forami nal narrow ing. At C4-C5, there is left greate r than right facet arthro austen as well as uncove rtebra l joint spurri ng. There is mild left and minima l right neural forami nal narrow ing. At C5-C6, there is left-s ided facet arthro austen but no spinal canal or neural forami nal stenos is. At C6-C7, there is a minima l centra l disc protru leighton and there is mild facet arthro austen. There is no signif icant narrow ing of the spinal canal or neural forami na. At C7-T1, there is a small centra l disc protru leighton but no spinal canal or neural forami nal stenos is. IMPRES LEIGHTON: Mild multil evel degene rative change s of the cervic al spine as descri bed above. There is mild left neural forami nal narrow ing at C4-C5 level. No signif icant spinal canal stenos is. Electr onical ly Signed By: Loraine heaton MD [email or web address] [facility] ([facility]) [address] [place], [address], 09/22/2021 11:04:41 09/15/19 22 09/15/2021 MRI, cervi trinity spine , w/o contr ast No observ ation record ed. [address] ([facility]) [address] [place], [address], 09/22/2021 11:06:02 Result Notes None recorded. Procedures Surgical History Date Name Laterality Status Provider Name and Address Organization Details Recorded Time 02/24/2022 DATA REVIEW completed Norman Mac MD [address] [place] [address] DEIRDRE Alanis, [phone], [facility] 02/24/2022 10:22:36 10/13/2021 DATA REVIEW completed Norman Mac MD [address] [place] [address] DEIRDRE Alanis, [phone], [facility] 10/13/2021 12:32:33 09/01/2021 DATA REVIEW completed Norman Mac MD [address] [place] [address] DEIRDRE Alanis, [phone], [facility] 09/01/2021 13:28:06 Imaging Results Imaging Date Name Status LastModified by Organiz ation Details LastModified Time 09/15/2021 MRI, cervical spine, w/o contrast completed [address] [facility] ([facility]) [address] [place], [address], 09/22/2021 11:04:41 09/15/2021 MRI, cervical spine, w/o contrast completed [address] ([facility]) [address] [place], [address], 09/22/2021 11:06:02 Procedure Notes None recorded. Medical Equipment None Reported. Allergies No known drug allergies Medications Name Sig Start Date Stop Date Status Note LastModified by Organization Details LastModified Time doxycycline hyclate 100 mg capsule take 1 capsule by mouth twice a day active Not Available Not Available No t Available nicotine 14 mg/24 hr daily transdermal patch APPLY 1 PATCH TO SKIN DIRECTED ONCE DAILY FOR 6 WEEKS THEN SWITCH TO 7MG PATCH FOR 2 WEEKS active Not Available Not Available No t Available ipratropium 0.5 mg-albuterol 3 mg (2.5 mg base)/3 mL nebulization soln inhale contents of 1 vial ( 3 milliliters ) in nebulizer every 4 ... (REFER TO PRESCRIPTIO N NOTES). active Not Available Not Available No t Available atorvastatin 10 mg tablet take 1 tablet by mouth once daily active Not Available Not Available No t Available azithromycin 250 mg tablet take 2 tablets by mouth TODAY then take 1 tablet DAILY FOR 4 DAYS active Not Available Not Available No t Available nicotine (polacrilex) 2 mg gum WEEKS 1-6: CHEW 1 PIECE OF GUM EVERY 1 TO 2 HOURS. WEEKS 7-9: WALLY... (REFER TO PRESCRIPTIO N NOTES). active Not Available Not Available No t Available meloxicam 15 mg tablet take 1 tablet by mouth once daily active Not Available Not Available No t Available prednisone 20 mg tablet take 2 tablets by mouth daily for 5 days active Not Available Not Available N ot Available amitriptylin e 25 mg tablet TAKE 1 TABLET BY MOUTH NIGHTLY FOR 1 WEEK, THEN TAKE 1 AND1/2 TAB... (REFER TO PRESCRIPTIO N NOTES). active Not Available Not Available No t Available lorazepam 0.5 mg tablet take 1 tablet by mouth once daily if needed for anxiety (THIS IS 30 DAY SUPPLY PER MD) active Not Available Not Available No t Available amitriptylin e 10 mg tablet take 1 tablet by mouth nightly for 1 week / then take 1 and 1/2 t... (REFER TO PRESCRIPTIO N NOTES). active Not Available Not Available No t Available paroxetine 20 mg tablet take 1 tablet by mouth IN THE AFTERNOON active Not Available Not Available No t Available trazodone 150 mg tablet take 1 tablet by mouth at bedtime active Not Available Not Available No t Available prednisone 50 mg tablet take 1 tablet by mouth daily as directed by prescriber for COPD FLARE active Not Available Not Available No t Available Advair Diskus 250 mcg-50 mcg/dose powder for inhalation inhale 1 puff by mouth twice a day . RINSE MOUTH AND THROAT AFTER USE active Not Available Not Available No t Available nicotine 21 mg/24 hr daily transdermal patch apply 1 patch to CLEAN, DRY, AND INTACT SKIN REMOVE AND REPLACE once daily active Not Available Not Available N ot Available Advair Diskus 500 mcg-50 mcg/dose powder for inhalation inhale 1 puff by mouth and INTO THE LUNGS twice a day active Not Available Not Available No t Available zafirlukast 20 mg tablet take 1 tablet by mouth twice a day active Not Available Not Available No t Available gabapentin 300 mg capsule take 1 capsule by mouth three times a day active Not Available Not Available Not Available montelukast 10 mg tablet take 1 tablet by mouth once daily active Not Available Not Available No t Available levofloxacin 750 mg tablet take 1 tablet by mouth once daily active Not Available Not Available No t Available paroxetine 40 mg tablet take 1 tablet by mouth once daily active Not Available Not Available No t Available Spiriva with HandiHaler 18 mcg and inhalation capsules inhale THE CONTENTS OF ONE CAPSULE IN THE HANDIHALER once daily active Not Available Not Available N ot Available ProAir HFA 90 mcg/actuatio n aerosol inhaler inhale 1 to 2 puffs by mouth and INTO THE LUNGS every 4 hours if ... (REFER TO PRESCRIPTIO N NOTES). active Not Available Not Available No t Available Suboxone 8 mg-2 mg sublingual film dissolve 1 and 1/2 FILMS under the tongue once daily FOR A TOTAL DOSE OF 12MG SL active Not Available Not Available No t Available Suboxone 12 mg-3 mg sublingual film dissolve 1 FILM under the tongue once daily active Not Available Not Available N ot Available Vitals Date Recorded Body height Respiratory rate Body mass index (BMI) Body weight Provider Name and Address Organization Details Last Updated DateTime 09/01/2021 152.4 cm 12 /min 26.4 kg/m2 91805.97 g Bettye Mcclelland [facility] [employer] [facility] 09/01/2021 13:55:19 Social History Question Answer Notes LastModified by Organizat ion Details LastModified Time Tobacco Smoking Status Current Every Day Smoker Bettye chapman [facility] 09/01/2021 14:03:49 What Is Your Level Of Alcohol Consumption? None Information not available 09/01/2021 What Is Your Level Of Caffeine Consumption? Heavy 3 Cups Per Day Information not available 09/01/2021 What Is The Highest Grade Or Level Of School You Have Completed Or The Highest Degree You Have Received? [id number] Information not available 09/01/2021 What Is Your Relationship Status? Information not available 09/01/2021 How Much Tobacco Do You Smoke? 1 PPD Information not available 09/01/2021 Sex: Unknown Functional Status None recorded. Mental Status None recorded. Family History Relationship Description Onset Age of this Age Resolved Age Notes LastModified by Organization Details LastModified Time Mother Type 2 diabetes mellitus Not available 2020 13:56:21 Mother Tremor Not available 14:02:53 Father Type 2 diabetes mellitus Not available 2020 13:56:21 Father Neuropathy Not available 09/01/2021 13:56:35 Sister Disorder of thyroid gland Not available 2020 13:56:49 Medical History Condition Response Head Trauma/Injury N Depression Y Lung Disease N COPD or emphysema Y Spine Problems N Obstructive Sleep Apnea N Alcoholism N Autoimmune disease N Arthritis N Developmental Problems N Cancer N Stroke N Heartburn, acid reflux, GERD N Vitamin D Deficiency N Liver Disease N Fibromyalgia N Headaches Y Kidney Disease N Claustrophobia Y Hospitalizations N High Blood Pressure or Hypertension N Thyroid Problems N Brain Tumors N Encephalitis N Vitamin B12 deficiency N PTSD N Heart Attack ([place]) N Diabetes N Bleeding Disorder N Cerebral Palsy N Tuberculosis N Neck Problems N Back Problems N Asthma Y Epilepsy/Seizures N Bipolar Disorder Y Sleep Disorder N Aneurysm N Hepatitis N Heart Disease N High Cholesterol or Hyperlipidemia Y Osteoporosis N Gynecological HistoryNo gynecological history recorded. Obstetrics History GPAL:G 0 P 0 0 0 0 Past Encounters Encounter ID Performer Location Encounter Start Date Encounter Closed Date Diagnosis/Indication Diagnosis SNOMED-CT Code Diagnosis ICD10 Code Diagnosis Note [id number] Norman Mac MD [facility] [address] [place] [address] [place] [id number] 09/01/2021 12:57:15 09/01/2021 17:19:46 Cervical disc prolapse with myelopathy 713845421 M50.01 Idiopathic peripheral neuropathy 19576547 G60.3 Abnormal gait 69932193 R 26.81 [id number] Norman Mac MD [facility] [address] [place] [address] [place] [id number] 10/13/2021 12:21:44 10/13/2021 16:56:21 Cervical disc prolapse with myelopathy 219187471 M50.01 Idiopathic peripheral neuropathy 35635936 G60.3 Abnormal gait 66934309 R 26.81 Migraine without aura 56 274430 G43.009 [id number] Norman Mac MD [facility] [address] [place] [address] [place] [id number] 02/24/2022 09:50:08 02/24/2022 11:15:30 Cervical disc prolapse with myelopathy 123412346 M50.01 Idiopathic peripheral neuropathy 37950241 G60.3 Abnormal gait 90618229 R 26.81 Migraine without aura 56 052357 G43.009 Health Concerns Section Related Observation LastModified by Organization Detai ls LastModified Time None Recorded Concern Status LastModified by Organization Details LastModified Time None Recorded Advance Directives Directive None Recorded Payers Encounter Date Sequence Insurance Name Policy Number Policy Brown Covered Member ID Brown Member ID Guarantor Name 09/01/2021 1 [place] [place] [place]ICAID[place] Ella Mo [id number] Ella Mo 10/13/2021 1 [place] Ella Mo [id number] Ella Mo 02/24/2022 1 [place] Ella Mo [id number] Ella Mo Notes Date Note Type Note Provider Name and Address Organization Details Recorded Time 09/01/2021 text/html She presents for initial neurology consultation for assessment and management of numbness episodes of both hands and feet; daily headaches and bimonthly debilitating migraines; and worsening memory. She lives with her 21-year-old daughter who is physically okay but has mental problems. She later mentions that her daughter has tuberous sclerosis and has had 2 brain surgeries. She is unaccompanied. She has a long history of headaches and migraines, since her childhood, worsened in recent years. She has headaches every day, more than half the day. About twice a month she gets a debilitating migraine, much more intense than her headaches, lasting all day, up to 3 days. Motrin and Tylenol both only help a little and transiently. She takes mostly Tylenol as she has heard Motrin is bad for her. She has hand numbness that wakes her at 1 or 2 times every night in either her right hand or in both hands. She also wakes at her normal waking time in the morning with this numbness. She tries to avoid certain positions sleeping to minimize the likelihood of such numbness at waking. It lasts about 20 minutes after she wakes with the numbness. It is bad enough so that recently when she reached for her coffee from the microwave she dropped it because of the numbness. She does not get numbness episodes of her hands that start while she is awake. She has foot numbness that starts if she is sitting for an extended period of time, either in her right or left foot or in both feet. The numbness might occur more quickly when she is sitting on the toilet. In either case, the numbness goes away as quickly and seconds. However, it is bad enough so that when she stands up it has made her fall. Her numbness of both hands and feet have been going on at least a year, possibly 2 or 3 years. Her memory is worsening. She forgets that she has left macaroni on the stove. She is able to remember or read recipes but sometimes forgets the recipe in the middle of preparing a meal and needs to check. She was forgetting medications so she went out and got an organizer. Her daughter helps her filling the organizer every Wednesday and with this she is doing better with remembering her medications. Her daughter helps her with her bills. She cannot say if this is because of a problem with memory. She has not driven for a year because she does not have a car. She is unsure if she could drive even if she had a car because of pain in her lower extremities, particularly in her knees where she has had bilateral knee replacements. Her life has been very difficult over the past 2 years at least, during which her has , her yrkvll-ex-npm has and her pets have . She argues with her daughter a lot and her daughter criticizes her a lot, especially when she forgets things. She is depressed. She is on Paxil. Norman Mac MD [address] [place] [address] [place], [id number], [facility] 09/02/2021 19:42:49 10/13/2021 text/html Follow-up of num bness episodes of both hands and feet; daily headaches and bimonthly debilitating migraines; and worsening memory. She lives with her 21-year-old daughter who is physically okay but has mental problems. She later mentions that her daughter has tuberous sclerosis and has had 2 brain surgeries. She is unaccompanied.Since September 01, 2021 neurology follow-up encounter, she has started amitriptyline 10 mg tablets and increased up to 20 mg every evening. She has no side effects. Headaches are less intense, no migraines actually. They are also less frequent, not every day. She has had another fall on ice, on my ass. She reports no significant injury. Her numbness that was alternating right more frequently than left foot is now of equal frequency on both feet. She notes that she has had carpal tunnel syndrome diagnosis in her hands previously. She has splints. They hurt too much to put on to wear when she sleeps. Presenting symptomatology is reviewed from initial neurology consultation September 01, 2021:She has a long history of headaches and migraines, since her childhood, worsened in recent years. She has headaches every day, more than half the day. About twice a month she gets a debilitating migraine, much more intense than her headaches, lasting all day, up to 3 days. Motrin and Tylenol both only help a little and transiently. She takes mostly Tylenol as she has heard Motrin is bad for her. She has hand numbness that wakes her at 1 or 2 times every night in either her right hand or in both hands. She also wakes at her normal waking time in the morning with this numbness. She tries to avoid certain positions sleeping to minimize the likelihood of such numbness at waking. It lasts about 20 minutes after she wakes with the numbness. It is bad enough so that recently when she reached for her coffee from the microwave she dropped it because of the numbness. She does not get numbness episodes of her hands that start while she is awake. She has foot numbness that starts if she is sitting for an extended period of time, either in her right or left foot or in both feet. The numbness might occur more quickly when she is sitting on the toilet. In either case, the numbness goes away as quickly and seconds. However, it is bad enough so that when she stands up it has made her fall. Her numbness of both hands and feet have been going on at least a year, possibly 2 or 3 years. Her memory is worsening. She forgets that she has left macaroni on the stove. She is able to remember or read recipes but sometimes forgets the recipe in the middle of preparing a meal and needs to check. She was forgetting medications so she went out and got an organizer. Her daughter helps her filling the organizer every Wednesday and with this she is doing better with remembering her medications. Her daughter helps her with her bills. She cannot say if this is because of a problem with memory. She has not driven for a year because she does not have a car. She is unsure if she could drive even if she had a car because of pain in her lower extremities, particularly in her knees where she has had bilateral knee replacements. Her life has been very difficult over the past 2 years at least, during which her has , her [id number] has and her pets have . She argues with her daughter a lot and her daughter criticizes her a lot, especially when she forgets things. She is depressed. She is on Paxil. Norman Mac MD [address] [place] [address], [phone], [facility] 10/13/2021 13:13:00 02/24/2022 text/html Follow-up of num bness episodes of both hands and feet; daily headaches and bimonthly debilitating migraines; and worsening memory. She lives with her 21-year-old daughter who is physically okay but has mental problems. She later mentions that her daughter has tuberous sclerosis and has had 2 brain surgeries. She is unaccompanied.Since October 13, 2021 neurology follow-up encounter, she has remained on amitriptyline 20 mg nightly. I neglected to change the pill size from 10 mg to 25 mg to titrate her up to 50 mg. She has started to get migraines, one lasted five or 6 days. This was before hospitalization for COPD and before her current respiratory ailment, both of which having increased her headaches more.She has continued with trouble walking including another fall where she broke the little finger of one hand. This fall was without using her walker. She is working on more protection against falls in her home as someone is installing a chair in her shower. Presenting symptomatology is reviewed from initial neurology consultation September 01, 2021:She has a long history of headaches and migraines, since her childhood, worsened in recent years. She has headaches every day, more than half the day. About twice a month she gets a debilitating migraine, much more intense than her headaches, lasting all day, up to 3 days. Motrin and Tylenol both only help a little and transiently. She takes mostly Tylenol as she has heard Motrin is bad for her. She has hand numbness that wakes her at 1 or 2 times every night in either her right hand or in both hands. She also wakes at her normal waking time in the morning with this numbness. She tries to avoid certain positions sleeping to minimize the likelihood of such numbness at waking. It lasts about 20 minutes after she wakes with the numbness. It is bad enough so that recently when she reached for her coffee from the microwave she dropped it because of the numbness. She does not get numbness episodes of her hands that start while she is awake. She has foot numbness that starts if she is sitting for an extended period of time, either in her right or left foot or in both feet. The numbness might occur more quickly when she is sitting on the toilet. In either case, the numbness goes away as quickly and seconds. However, it is bad enough so that when she stands up it has made her fall. Her numbness of both hands and feet have been going on at least a year, possibly 2 or 3 years. Her memory is worsening. She forgets that she has left macaroni on the stove. She is able to remember or read recipes but sometimes forgets the recipe in the middle of preparing a meal and needs to check. She was forgetting medications so she went out and got an organizer. Her daughter helps her filling the organizer every Wednesday and with this she is doing better with remembering her medications. Her daughter helps her with her bills. She cannot say if this is because of a problem with memory. She has not driven for a year because she does not have a car. She is unsure if she could drive even if she had a car because of pain in her lower extremities, particularly in her knees where she has had bilateral knee replacements. Her life has been very difficult over the past 2 years at least, during which her has , her ojezhd-hk-vsl has and her pets have . She argues with her daughter a lot and her daughter criticizes her a lot, especially when she forgets things. She is depressed. She is on Paxil. Norman Mac MD [address] [place] [address] [place], [phone], [facility] 02/24/2022 10:55:17 OBGyn Episode No OBEpisode recorded.
--- OUTSIDE RECORDS SUMMARY | 2025-01-03 06:40 | XMS_ITS | Encounter Summary ---
Author Organization [employer] Address [address] [place] [address] Care Team Providers Care Batch Freezer Operator Name Role Phone Angelita Allred Primary Care Provider Unavailab panda Coto Annie Unavailable Kristan Ayers Unavailable [phone] Kristan Ayers Unavailable [phone] Omayra Bernal NP Primary Care Provider [phone] Encounter Details Date Type Department Care Team (Late st Contact Info) Description 06/08/2023 Abstract [facility] [address] [place] [phone] Angelita Allred FNP Social History Tobacco Use [...] on filedocumented in this encounter Care Teams Batch Freezer Operator Relationship Specialty Start Date End Date Angelita Allred FNP PCP - General Family Medicine 08/25/22 06/27/23 Omayra Bernal NP [address] [place] [id number] PCP - General Family Medicine 06/28/23 Annie Coto [address] [place] [address] 03/30/23 03/28/[address] [address] 04/23/23 05/16/[address] [address] 06/10/23 05/16/24 documented as of this encounter
--- OUTSIDE RECORDS SUMMARY | 2025-01-03 06:40 | XMS_ITS | Clinical Summary ---
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 Role Phone Lida Bernalie JABIER Primary Care Provider [phone] Allergies Active Allergy Reactions Criticality Noted Date Comments Doxycycline Hyclate 07/20/2012 Note: SEVERE/high fever/thrush Gabapentin High 07/02/2022 Other reaction(s): anxiety/depression (Moderate to Severe) Pollen Extract 02/20/2014 Varenicline 07/20/2012 Note: vomiting Medications albuterol (5 MG/ML) 0.5% nebulizer solution Albuterol Sulfate (5 MG/ML) 0.5% Inhalation Nebulization solution QTY: 0 Days: 0 Refills: 0 Written: 08/22/19 Patient Instructions: Active ipratropium-albut prabhjot (Duo-Neb) 0.5-2.5 mg/3 mL nebulizer solution ipratropium 0.5 mg-albuterol 3 mg (2.5 mg base)/3 mL nebulization soln inhale contents of 1 vial ( 3 milliliters ) in nebulizer every 4 ... (REFER TO PRESCRIPTION NOTES). Active montelukast (Singulair) 10 MG tablet montelukast 10 mg tablet take 1 tablet by mouth once daily Active naloxone (Narcan) 4 mg/0.1 mL nasal spray Narcan 4 MG/0.1ML Nasal Liquid QTY: 3 unspecified Days: 30 Refills: 3 Written: 07/31/22 Patient Instructions: as directed Active nicotine polacrilex (Nicorette) 2 MG gum nicotine (polacrilex) 2 mg gum WEEKS 1-6: CHEW 1 PIECE OF GUM EVERY 1 TO 2 HOURS. WEEKS 7-9: WALLY... (REFER TO PRESCRIPTION NOTES). 022 Active PARoxetine (Paxil) 20 MG tablet paroxetine 20 mg tablet take 1 tablet by mouth IN THE AFTERNOON Active PARoxetine (Paxil) 40 MG tablet paroxetine 40 mg tablet take 1 tablet by mouth once daily Active tiotropium (Spiriva HandiHaler) 18 MCG inhalation capsule Spiriva with HandiHaler 18 mcg and inhalation capsules inhale THE CONTENTS OF ONE CAPSULE IN THE HANDIHALER once daily 022 Active Incontinence Supply Disposable (PROCare Adult Briefs Large) miscIndications:E nuresis, nocturnal and diurnal Wear 1 brief overnight as needed for nocturnal eneuresis 90 each 3 023 Active Elastic Bandages & Supports (Medical Compression Stockings) miscIndications:L ocalized edema 2 each Once daily. 2 each 023 Active VITAMIN D PO Take by mouth. Ac tive QUEtiapine (SEROquel) 25 MG tablet take 1/2 to 1 tablet by mouth twice a day if needed for anxiety 023 Active ARIPiprazole (Abilify) 2 MG tablet Take 2 mg by mouth in the morning. 024 Active furosemide (Lasix) 40 MG tabletIndications :Localized edema Take 1 tablet (40 mg) by mouth Once per day for 5 days. 5 tablet 024 Active nystatin (Mycostatin) 677328 UNIT/GM powderIndications :Intertrigo Apply topically 2 times daily. 60 g 1 024 2024 Active atorvastatin (Lipitor) 10 MG tabletIndications :Primary osteoarthritis of both hips atorvastatin 10 mg tablet take 1 tablet by mouth once daily 90 tablet 3 024 Active traZODone (Desyrel) 150 MG tablet take 1 tablet by mouth at bedtime 90 tablet 1 024 Active nicotine polacrilex (Nicorette) 4 MG gumIndications:Shannon matosette nicotine dependence without complication Chew 1 each (4 mg) if needed for smoking cessation. 100 each 3 024 Active fluticasone (Flonase) 50 MCG/ACT nasal spray instill 1 TO 2 spray into each nostril once daily (SHAKE GENTLY, BEFORE FIRST USE, PRIME PUMP AFTER USE, CLEAN TIP AND REPLACE CAP 48 g 3 Active Advair Diskus 500-50 MCG/ACT aerosol powder Take 500 mcg by mouth if needed. Active albuterol 108 (90 Base) MCG/ACT inhalerIndication s:Chronic bronchitis, unspecified chronic bronchitis type (CMS/HCC) Inhale 2 puffs every 4 (four) hours if needed for wheezing. 18 g 11 Active zafirlukast (Accolate) 20 MG tabletIndications :Mixed simple and mucopurulent chronic bronchitis (CMS/HCC) Take 1 tablet (20 mg) by mouth 2 times daily. 180 tablet 3 025 2025 Active methadone (Dolophine) 10 MG tabletIndications :Idiopathic peripheral autonomic neuropathy,Primar y osteoarthritis of both hips Take 1 tablet (10 mg) by mouth 3 times daily for 28 days. 84 tablet 025 2024 Active LORazepam (Ativan) 0.5 MG tabletIndications :Cigarette nicotine dependence without complication Take 1 tablet (0.5 mg) by mouth every 6 (six) hours if needed for anxiety for up to 30 doses. 30 tablet Active nicotine (Nicoderm, Step 3) 7 MG/24HR patch Place 1 patch on the skin 1 (one) time each day at the same time. 30 patch 1 025 2024 Active pregabalin (Lyrica) 100 MG capsuleIndication s:Idiopathic peripheral autonomic neuropathy Take 1 capsule (100 mg) by mouth 2 times daily. 60 capsule 2 025 2024 Active zafirlukast (Accolate) 20 MG tabletIndications :Mixed simple and mucopurulent chronic bronchitis (CMS/HCC) Take 1 tablet (20 mg) by mouth 2 times daily. 180 tablet 3 024 2024 Discontinued(R eorder (will not trigger notification to Pharmacy)) pregabalin (Lyrica) 100 MG capsuleIndication s:Idiopathic peripheral autonomic neuropathy Take 1 capsule (100 mg) by mouth 2 times daily. 60 capsule 2 025 2024 Discontinued(R eorder (will not trigger notification to Pharmacy)) methadone (Dolophine) 10 MG tabletIndications :Idiopathic peripheral autonomic neuropathy,Primar y osteoarthritis of both hips Take 1 tablet (10 mg) by mouth 3 times daily for 28 days. 84 tablet 025 2024 Discontinued(R eorder (will not trigger notification to Pharmacy)) nicotine (Nicoderm, Step 3) 7 MG/24HR patch Place 1 patch on the skin 1 (one) time each day at the same time. 28 patch 025 2024 Discontinued LORazepam (Ativan) 0.5 MG tabletIndications :Cigarette nicotine dependence without complication Take 1 tablet (0.5 mg) by mouth every 6 (six) hours if needed for anxiety for up to 30 doses. 30 tablet 025 2024 Discontinued(R eorder (will not trigger notification to Pharmacy)) methadone (Dolophine) 10 MG tabletIndications :Idiopathic peripheral autonomic neuropathy,Primar y osteoarthritis of both hips Take 1 tablet (10 mg) by mouth 3 times daily for 28 days. 84 tablet 025 2024 Discontinued(R eorder (will not trigger notification to Pharmacy)) nicotine (Nicoderm, Step 3) 7 MG/24HR patch place 1 patch ON THE SKIN EACH DAY AT THE SAME TIME 28 patch 11 025 2024 Discontinued(R eorder (will not trigger notification to Pharmacy)) Active Problems Problem Noted Date Diagnosed Date Left eye pain 08/01/2024 Assessment & Plan (08/01/2024 10:59 AM EST): - Patient experiences recurrent eye pain, sensitivity to light, and a sensation of foreign body in the eye. - Urgent referral to an rollout manager for further evaluation. Nicotine withdrawal 06/04/2024 Assessment & Plan (06/04/2024 10:29 AM EDT): - Patient is trying to quit smoking in preparation for an upcoming surgery. The patient is experiencing difficulty with this process. - Prescription of Lorazepam (Ativan) to help manage withdrawal symptoms. Emphasized the importance of using it only in moments of extreme distress and not as a regular mood enhancer. - Risks and side effects: Discussed the potential for dependency on Lorazepam if not used appropriately. Intertrigo 05/30/2024 Assessment & Plan (06/04/2024 10:29 AM EDT): - Patient has a skin fold infection and requested Nystatin powder for treatment. - Prescription of Nystatin powder. Advised the patient to ensure the area is dry before applying the powder. - Risks and side effects: Discussed potential tingling sensation when applying the powder, indicating it's working. Skin infection 12/07/2023 Assessment & Plan (12/14/2023 12:29 PM EDT): Right ear with localized lesion that is poorly healing and has signs of infection. Will treat with oral antibiotics as topical treatment was insufficient. Urinary incontinence 10/28/2023 Assessment & Plan (10/28/2023 3:22 PM EST): History most suspicious for stress incontinence. Urinary leakage when going to a gravitational dependent position. Patient is also post-menopausal, so possible there is element of vaginal atrophy. Patient will schedule pap smear for pap clinic. Dipstick + 15 Joan/uL - Will obtain UA to r/o infection - Will refer to pelvic floor physical therapy - Will consider topical estrogen if evidence of vaginal atrophy - If sxs refractory, will consider referral to urology for further evaluation and management Perichondritis 10/28/2023 Assessment & Plan (10/28/2023 3:12 PM EST): Sxs improving since onset. No longer draining pus, however, still uncomfortable. Physical exam significant for an erythematous lesion on the superior external pinna of the right ear, no evidence of active draining. - Will continue to keep site clean and continue OTC topical antibiotic - close monitoring and RTC if sxs worsen, have increasing redness or drainage. Will consider systemic and topical abx such as oral cipro and topical mupirocin to cover pseudomonas and staph. Will need to check dx-dx interactions. Financial insecurity 08/30/2023 Oxygen dependent 06/28/2023 Overview (06/28/2023): Prudencio Assessment & Plan (09/07/2023 12:45 PM EST): Advised not to smoke in the home with oxygen tanks in the house. Complicated grief 04/02/2023 Food insecurity 04/02/2023 Obstructive sleep apnea syndrome 11/30/2022 Overview (11/30/2022): Moderate-Severe; diagnosed with sleep study November 2022 Assessment & Plan (09/07/2023 12:45 PM EST): Will ask team to reach out to [facility] for documentation needed for CPAP Long-term use of high-risk medication 10/30/2022 Assessment & Plan (08/01/2024 10:59 AM EST): - refill on Methadone sent, patient is stable Assessment & Plan (02/10/2024 1:51 PM EDT): Continue Methadone at current dosing for chronic pain Reviewed goal to switch to Suboxone after hip replacement Oxycodone/Morphine/Fentanyl are not appropriate Idiopathic peripheral autonomic neuropathy 07/02 Overview (09/07/2023): As of Aug 2023: on Contract for Methadone 20mg TID, Lyrica 75mg BID Assessment & Plan (09/07/2023 12:38 PM EST): Today we reviewed her history and current regimen. We agreed to set goal of minimizing meds, especially Methadone. We will follow up for treatment plan. Assessment & Plan (09/25/2022 10:30 AM EST): Consulted w/ patient's PCP DELMI who manages her methadone. She suggested to continue current dose methadone (20mg TID) and add gabapentin or lyrica. Pt in agreement, lyrica selected via shared decision-making. Reviewed methadone and lyrica s/e profiles w/ return/ER precautions. RK to fill prescriptions - CC'd on chart. Pt will schedule 1 month follow up with her. Impaired glucose tolerance 02/18/2022 Assessment & Plan (02/10/2024 1:54 PM EDT): Due for labs, will check today Alcohol dependence 09/25/2015 Overview (07/31/2022): Note: Sober since January 2020 Radial styloid tenosynovitis 08/12/2012 Overview (07/31/2022): Note: right> left Carpal tunnel syndrome 08/12/2012 Overview (07/31/2022): Note: bilateral vs cervical spine problem Nicotine dependence 07/28/2012 Assessment & Plan (08/01/2024 10:58 AM EST): - Patient is trying to quit smoking and has reduced smoking frequency. Currently using nicotine patches and lorazepam, but wants to stop lorazepam. - Recommendation to continue using nicotine patches and to start using nicotine gum. Lorazepam will not be refilled again. Assessment & Plan (12/14/2023 12:30 PM EDT): Praised for her efforts in quitting. Discussed role of NRT to get off cigs and benefit of smoking/use nicotine as little as possible leading up to surgery. She agrees. Other depressive disorder 07/20/2012 Other and unspecified hyperlipidemia 07/20/2012 Overview (07/31/2022): Note: onset 07/27/07 Osteoarthritis 07/20/2012 Overview (02/10/2024): onset 03/09/09 Needs bilateral hip replacement On chronic opiates for pain since 2021 Assessment & Plan (08/01/2024 11:00 AM EST): - Patient currently followed by Dr Diaz at [facility] who is requiring 30days completely nicotine free, and while she is trying hard to reduce and quit smoking, her condition is worsening to the point that she is now WC dependent and cannot open her legs wide for personal hygiene. The urgency around her need for hip replacement has increased. -Will place referral to a new orthopedic surgeon at [facility] for a second opinion. - PT1 transport will be arranged for the patient. Assessment & Plan (06/05/2024 9:17 AM EDT): - Patient is preparing for a surgery at [facility]. The exact date is not yet set. The patient is anxious about the surgery and the pre-operative requirements, including quitting smoking. - Encouraged the patient to keep the current course of action steady, get through the surgery, and then reassess. Recommended the patient to do the therapy post- surgery for better healing. The patient will inform when a surgical date is set. Pain management - Patient is currently on Methadone for pain management, which is not significantly helping with the pain. The patient has previously been on Suboxone and expressed a preference for it. - Decided to keep the patient on Methadone until after the surgery. Discussed the possibility of transitioning back to Suboxone in the future. Medical equipment - Patient requested a prescription for a raised toilet seat and discussed the need for other equipment such as a shower chair. - Prescription for a raised toilet seat and a shower chair. The patient will be contacted by the medical supply pharmacy when the items are ready. - Risks and side effects: Advised the patient on the correct way to use the shower chair to avoid slipping. Assessment & Plan (02/10/2024 1:35 PM EDT): Encouraged to engage as much as possible with PT with goal for strengthening prior to surgery Assessment & Plan (12/14/2023 12:31 PM EDT): Encouraged to follow up with Ortho as scheduled. Discussed role of PCP in coordinating care and advocating for patient, as well as in pain control surrounding surgery. Mild persistent asthma 07/20/2012 Glaucoma 07/20/2012 Overview (07/31/2022): Note: borderline;open angle w/borderline findings,low risk.onset 03/26/08 Chronic obstructive pulmonary disease 07/20/2012 Overview (07/31/2022): Note: onset 07/13/07-pft - Gold criteria stage 2 moderate COPD Assessment & Plan (09/07/2023 12:45 PM EST): 02 saturation on room air is 90%, patient will benefit from continued supplemental use Oxygen. We spoke about the portability of her tanks and how what she has now is too big for her to manage out of the house. Will ask team to follow up with DME supplier to ensure continued access to supplemental Oxygen. Cervicalgia 07/20/2012 Overview (07/31/2022): Note: onset 02/10/07 Encounters Date Type Department Care Team Description 12/28/2024 2:00 PM EDT Clinical Support [address] [phone] Marie Hutchinson LPN Encounter for long-term (current) use of medications 12/25/[address] [phone] Omayra Bernal NP 12/25/[address] [phone] Omayra Bernal NP 12/20/[address] [address] Omayra Bernal NP 12/20/[address] [address] Omayra Bernal NP Idiopathic peripheral autonomic neuropathy; Primary osteoarthritis of both hips; Cigarette nicotine dependence without complication 12/20/[address] [address] Omayra Bernal NP Idiopathic peripheral autonomic neuropathy 12/18/[address] [address] Omayra Bernal NP Idiopathic peripheral autonomic neuropathy; Primary osteoarthritis of both hips 12/11/[address] [address] Omayra Bernal NP Mixed simple and mucopurulent chronic bronchitis (CMS/HCC) 11/27/[address] [address] Omayra Bernal NP Cigarette nicotine dependence without complication 11/24/2024 Population Health Risk Score [facility] ([facility] [address] [phone] Provider, Population Health Generic 11/24/[address] [address] Michelle Maynard LPN Idiopathic peripheral autonomic neuropathy; Primary osteoarthritis of both hips 11/22/[address] [address] Omayra Bernal NP Idiopathic peripheral autonomic neuropathy; Primary osteoarthritis of both hips 11/08/[address] [address] Omayra Bernal NP 11/08/[address] [address] Omayra Bernal NP Chronic bronchitis, unspecified chronic bronchitis type (CMS/HCC) 11/07/[address] [address] Omayra Bernal NP Chronic bronchitis, unspecified chronic bronchitis type (CMS/HCC) 11/06/[address] [address] Omayra Bernal NP 11/06/[address] [address] Omayra Bernal NP 10/23/[address] [address] Omayra Bernal NP Idiopathic peripheral autonomic neuropathy; Primary osteoarthritis of both hips 10/20/2024 4:20 PM EST Office Visit [address] [address] Omayra Bernal NP Primary osteoarthritis of both hips (Primary Dx); Screening for depression [Z13.31]; Impaired glucose tolerance; Cigarette nicotine dependence without complication 10/20/[address] [phone] Omayra Bernal NP 10/11/[address] [phone] Omayra Bernal NP Colon Cancer Screening 10/05/[address] [phone] Omayra Bernal NP from Last 3 Months Immunizations Name Administration Dates Next Due Influenza injectable quadriv alent preservative free 08/30/2023,07/17/2022,04/26/2015 Influenza, IIV3, injectable 08/12/2012 Influenza, Unspecified 06/30/2017,08/12/2005 Influenza, seasonal, injecta ble, preservative free 05/30/2024,05/06/2017 Moderna Covid-19 Vaccine 12+ 05/30/2024, 06/28/2023,01/22/2021,12/25 Pfizer Covid-19 Vaccine 12+ marcos-sucrose (Pierre Cap) 02/02/2022 Pneumococcal Conjugate PCV 20 08/01/2024 Pneumococcal Polysaccharide PPSV23 08/12/2005 Tdap 05/08/2022,12/24/2011 Family History Medical History Relation Name Comments Breast cancer Sister Relation Name Status Comments Sister Social History Tobacco Use Types Packs/Day Years Used Date Smoking Tobacco: Every Day Cigarettes Passive Smoke Exposure: Past Smokeless Tobacco: Never Tobacco Cessation:Ready to Q uit: Not Asked; Counseling Given: Not Answered Alcohol Use Standard Drinks/Week Comments Not Currently [...] Orientation Straight 07/10/2022 6: 20 PM EDT Last Filed Vital Signs Vital Sign Reading Time Taken Comments Blood Pressure 118/78 10/20/2024 4:35 PM EST Pulse 86 10/20/2024 4:35 PM EST Temperature 36.2 ??C (97.2 ??F) 10/20/2024 4:35 PM ES T Respiratory Rate 20 10/29/2022 4:38 PM EST Oxygen Saturation 90% 10/20/2024 4:35 PM EST Inhaled Oxygen Concentration - - Weight 89.4 kg (197 lb) 08/30/2023 10:04 AM EST Height 152.4 cm (5') 12/07/2023 1:55 PM EDT Body Mass Index 38.47 03/05/2023 9:30 AM EDT Plan of Treatment Health Maintenance Due Date Last Done Comments CT Colonography 1965 FIT DNA/Cologuard 1965 FIT 1965 FOBT 1965 HIV Screening 1965 Sigmoidoscopy 1965 Alcohol/Substance Use Screening 1977 Hepatitis C Screening 1983 Hepatitis B Vaccines (1 of 3 - 19+ 3-dose series) 1984 Zoster Vaccines (1 of 2) 2015 Pap Smear 12/29/2020 12/29/2017 HPV/Cotest 12/29/2022 12/29/2017 Colonoscopy 08/09/2023 08/09/2018, 08/09/2018 Colorectal Cancer Screening 08/09/2023 Depression Monitoring 04/19/2025 10/20/2024, 025 Depression Screening 10/20/2025 10/20/2024, 10/20/19 25 SDOH Screening 10/20/2025 10/20/2024 Tobacco Screening 10/20/2025 10/20/2024 Mammogram 12/19/2025 12/20/2023, 04/13, 01/21/2012, Additional history exists Lipid Panel 02/16/2027 02/16/2022 DTaP/Tdap/Td Vaccines (3 - Td or Tdap) 05/08/2032 05/08/2022, 12/24/2011 RSV Patients and Patients Aged 60 years or older (1 - 1-dose 75+ series) 2040 COVID-19 Vaccine Completed 05/30/2024, , 06/22/2022, Additional history exists Influenza Vaccine Completed 05/30/2024, , 07/17/2022, Additional history exists Pneumococcal Vaccine: 50+ Years Completed 08/01/2024, 08/12/2005 Cervical Cancer Screening Discontinued HIB Vaccines Aged Out No longer eligi ble based on patient's age to complete this topic HPV Vaccines Aged Out No longer eligi ble based on patient's age to complete this topic Hepatitis A Vaccines Aged Out No long er eligible based on patient's age to complete this topic IPV Vaccines Aged Out No longer eligi ble based on patient's age to complete this topic Meningococcal Vaccine Aged Out No linda segundo eligible based on patient's age to complete this topic RSV under 20 months Aged Out No longe r eligible based on patient's age to complete this topic Rotavirus Vaccines Aged Out No longer eligible based on patient's age to complete this topic Procedures Procedure Name Priority Date/Time Associated Diagnosis Comments BI MAMMOGRAM SCREENING TOMOSYNTHESIS BILATERAL Routine 12/20/2023 8:58 AM EDT LIPID PANEL WITH REFLEX TO DIRECT LDL Routine 02/16/2022 3:53 PM EDT HM COLONOSCOPY Routine 08/09/2018 HM HPV ONLY Routine 12/29/2017 HM PAP/HPV Routine 12/29/2017 from Last 3 Months or Most Recently Relevant to Health Maintenance Results * BI Mammogram Screening Tomosynthesis Bilateral [...] Benign. Lay letter mailed to patient. WSN: [id number] Ordering Physician: Omayra Bernal Dictated By: ?Kenny Burgos MD Dictated Date/Time: ?12/20/23 12:01 pm Reviewed By: ?Kenny Burgos MD Signed By: ? Kenny Burgos MD Signed Date/Time: ? 12/20/23 12:01 pm Transcribed By: ? [employer] Data Sciences Director Date/Time: ? 12/20/23 11:51 am Birads: Procedure Note Donotsivanter, Image - 12/20/2023 PROCEDURE: MM Digital Mammo [...] Benign. Lay letter mailed to patient. WSN: [id number] Ordering Physician: Omayra Bernal Dictated By: Kenny Burgos MD Dictated Date/Time: 12/20/23 12:01 pm Reviewed By: Kenny Burgos MD Signed By: Kenny Burgos MD Signed Date/Time: 12/20/23 12:01 pm Transcribed By: PHUONG Data Sciences Director Date/Time: 12/20/23 11:51 am Birads: Omyara Bernal PROVIDER EDUCATION SPECIALIST IMG BI PROCEDURES Final Result * (ABNORMAL) LIPID PANEL W REFLEX TO DLDL (02/16/2022 3:53 PM EDT) Pathologist [facility] Cholesterol, Total 135 (<200) MG/DL [facility] Triglycerides 194(H) (<150) MG/DL [facility] HDL Cholesterol 43 (>39) MG/DL [facility] LDL Cholesterol Calculated 53 (0-130) MG/DL [facility] Non-HDL Cholesterol 92 (<160) MG/DL [facility] Chol/HDLC Ratio 3.1 (<5.0) [facility] 02/16/2022 3:53 PM EDT Historical Provider LAB BLOOD ORDERABLES Marita l Result [facility] [address] * Colonoscopy (08/09/2018) Pathologist [facility] Colonoscopy REPEAT IN 5 YEARS Historical Provider HEALTH MAINTENANCE Final Result * HPV (12/29/2017) Pathologist [facility] HPV Undetected Undetected, Indeterminate , Quantitative, Not Detected Historical Provider HEALTH MAINTENANCE Final Result * Pap Smear (12/29/2017) Pathologist [facility] Pap smear NILM, HPV NEGATIVE Historical Provider HEALTH MAINTENANCE Final Result from Last 3 Months or Most Recently Relevant to Health Maintenance Insurance [facility] * Guarantor: Ella Hassan Account Type Relation to Patient Date of Phone Billing Address Dental Self Care Teams Metal Work Duct Installer Relationship Specialty Start Date End Date Omayra Bernal NP [address] [place] [address] PCP - General Family Medicine 06/28/23
--- OUTSIDE RECORDS SUMMARY | 2025-01-03 06:40 | XMS_ITS | Data Portability ---
Author Organization [facility], [facility] Address [address] [place] [address] Care Team Providers Care Sales Representative [employer] Name Role Phone CARLIN THEODORE OTHER Assessment [...] of malignancy. Annual screening mammography is recommended. ? ? ?BI-RADS 1: NEGATIVE Not available 01/21/2012 14:45:44 Plan of Treatment Reminders Order Date Submit Date Provider Last Modified By Organization Details Last Modified Time Details Appointments None recorded. Lab lipid panel 2011 012 [facility], [address] [place], [address], 3 03:04:42 Pap liquid based, reflex HPV, ascu 2011 012 [facility], [address] [place] [address], [address], 3 03:04:44 vitamin D,25-hydrox y 2011 012 [facility], [address] [place] [address], [address], 3 03:03:30 comprehensi ve metabolic panel 2011 012 [facility], [address] [place] [address], [address], 3 03:03:30 thyroid stimulating hormone (TSH) 2011 012 [facility], [address] [place] [address], [address], 3 03:03:30 CBC 2011 012 [facility], [address] [place] [address], [address], 3 03:03:30 Referral None recorded. Procedures None recorded. Surgeries None recorded. Imaging mammogram, screening - routine 2011 012 [facility], [address] [place] [address], [address], 3 03:04:42 ultrasound, pelvic transabdomi nal & transvagina l - worsening dyspareunia - pt questions obstruction 2011 012 [facility], [address] [place] [address], [address], 3 03:02:19 Medication Orders nicotine 21 mg/24 hr daily transdermal patch 2011 012 [facility]1094, [address] [place], [address], 3 03:05:47 nicotine (polacrilex ) 2 mg buccal lozenge 2011 012 [facility] [address] [place], [address], 3 03:03:35 DuoNeb 0.5 mg-3 mg(2.5 mg base)/3 mL solution for nebulizatio n 2011 012 [facility], [address] [place], [address], 3 03:04:50 Flovent HFA 220 mcg/actuati on aerosol inhaler 2011 012 [facility], [address] [place] [address], [address], 3 03:03:35 Accolate 20 mg tablet 2011 012 [facility], [address] [place] [address], [address], 3 03:03:35 ProAir HFA 90 mcg/actuati on aerosol inhaler 2011 012 [facility], [address] [place] [address], [address], 3 03:03:35 amoxicillin -potassium clavulanate 1,000 mg-62.5 mg tablet,ext. rel 12hr 2010 011 [facility]58727, [address], [place], [id number], 3 05:39:26 Zithromax Z-Gerardo 250 mg tablet 2010 011 [facility] #02755, [address], [place], [id number], 3 05:39:26 Culturelle 10 billion cell capsule 2010 011 [facility], [address], [place], [id number], 3 05:39:26 prednisone 10 mg tablet 2010 011 [facility]51002, [address], [place], [id number], 3 05:36:51 Patient TargetsNo targets recorded. Patient Instructions Encounter Date Encounter Id Patient Instructions Last Modified By Organization Details Last Modified Time 08/20/2011 [id number] Quitting Tobacco : Care Instructions ANGELINE Not available 04/07/2013 05:34:08 Discussed smokin g cessation with patient , Patient is {{ready to quit and has adopted plan contemplatin g quitting but not ready* not interested in stopping at this time}} Not available 08/20/2011 16:26:50 12/24/2011 [id number] Quitting Tobacco : Care Instructions ANGELINE Not [...] this time}} Not available 12/28/2011 23:34:17 05/22/2015 [id number] Rx given for glasses Cataracts discussed anayelierlin Not available 05/22/2015 10:56:16 Reason for Referral None Reported. Results Created Date Observation Date Name Description Value Unit Range Abnormal Flag Note LastModifiedBy Organization Detail LastModifiedTime 12/24/19 12 12/24/2011 CBC WBC 5.8 K/?L 4.0-10 .0 Not Available Located Within [facility] [address] [place], [address], 12/24/2011 11:28:36 12/24/19 12 12/24/2011 CBC RBC 4.82 M/?L 3.93-5 .22 Not Available [address], [address], 12/24/2011 11:28:36 12/24/19 12 12/24/2011 CBC HGB 15.1 g/dL 11.2-1 5.7 Not Available [address], [address], 12/24/2011 11:28:36 12/24/19 12 12/24/2011 CBC HCT 42.2 % 34.1-4 4.9 Not Available [address], [address], 12/24/2011 11:28:36 12/24/19 12 12/24/2011 CBC MCV 87.6 ?L 79.4-9 4.8 Not Available [address], [address], 12/24/2011 11:28:36 12/24/19 12 12/24/2011 CBC MCH 31.3 pg 25.6-3 2.2 Not Available [address], [address], 12/24/2011 11:28:36 12/24/19 12 12/24/2011 CBC MCHC 35.8 g/dL 32.2-3 5.5 high Not Available [address], [address], 12/24/2011 11:28:36 12/24/19 12 12/24/2011 CBC plt 314.0 K/?L 182.0- 369.0 Not Available [address], [address], 12/24/2011 11:28:36 12/24/19 12 12/24/2011 CBC MPV 11.2 9.4-12 .3 Not Available [address], [address], 12/24/2011 11:28:36 12/24/19 12 12/24/2011 CBC neut% 59.4 % 34.0-7 1.1 Not Available [address], [address], 12/24/2011 11:28:36 12/24/19 12 12/24/2011 CBC neut# 3.4 1.6-6. 1 Not Available [address], [address], 12/24/2011 11:28:36 12/24/19 12 12/24/2011 CBC lymph % 29.7 % 19.3-5 1.7 Not Available [address], [address], 12/24/2011 11:28:36 12/24/19 12 12/24/2011 CBC lymph # 1.7 K/?L 1.2-3. 7 Not Available [address], [address], 12/24/2011 11:28:36 12/24/19 12 12/24/2011 CBC mono% 7.6 % 4.7-12 .5 Not Available [address], [address], 12/24/2011 11:28:36 12/24/19 12 12/24/2011 CBC mono# 0.4 0.2-0. 4 high Not Available [address], [address], 12/24/2011 11:28:36 12/24/1912/24/2011 CBC eo% 2.8 % 0.7-5. 8 Not Available [address], [address], 12/24/2011 11:28:36 12/24/19 12 12/24/2011 CBC eo# 0.2 0.0-0. 4 Not Available [address], [address], 12/24/2011 11:28:36 12/24/19 12 12/24/2011 CBC baso% 0.5 % 0.1-1. 2 Not Available [address], [address], 12/24/2011 11:28:36 12/24/19 12 12/24/2011 CBC baso# 0.0 0.0-0. 1 low Not Available [address], [address], 12/24/2011 11:28:36 12/24/19 12 12/24/2011 CBC RDW-CV 12.7 % 11.7-1 4.4 Not Available [address], [address], 12/24/2011 11:28:36 12/24/19 12 12/24/2011 lipid panel cholesterol 177 mg/dL <200 mg/dL jeff able 200-2 39 mg/dL borde rline high >240 mg/dL high Not Available [address], [address], 12/24/2011 12:14:01 12/24/19 12 12/24/2011 lipid panel triglyceride s 89 mg/dL <200 <150 mg/dL maria fernanda l 150-1 99 mg/dL borde rline high 200-4 99 mg/dL high >500 mg/dL very high Not Available [address], [address], 12/24/2011 12:14:01 12/24/19 12 12/24/2011 lipid panel direct HDL 46 mg/dL Not Available [address], [address], 12/24/2011 12:14:01 12/24/19 12 12/24/2011 lipid panel direct LDL 107 mg/dL risk categ ory LDL goal _ CHD or CHD risk equiv alent s <100 mg/dL (10-y ear risk >20%) 2+ risk facto rs <130 mg/dL (10-y ear risk <= 20%) 0-1 risk facto r? <160 mg/dL ? almos t all peopl e with 0-1 risk facto r have a 10 year risk <10%, thus 10 year risk asses ment in peopl e with 0-1 risk facto r IS not anetamariana barbosa. Not Available [address], [address], 12/24/2011 12:14:01 12/24/19 12 12/24/2011 compr ehens shantel metab olic panel glucose 80 mg/dL 70-100 Not Available [address], [address], 12/24/2011 12:14:02 12/24/19 12 12/24/2011 compr ehens shantel metab olic panel BUN 4 mg/dL 7-18 low Not Available [address], [address], 12/24/2011 12:14:02 12/24/19 12 12/24/2011 compr ehens shantel metab olic panel creatinine 0.7 mg/dL 0.8-1. 3 low Not Available [address], [address], 12/24/2011 12:14:02 12/24/19 12 12/24/2011 compr ehens shantel metab olic panel B/C 5.7 ratio Not Available [address], [address], 12/24/2011 12:14:02 12/24/19 12 12/24/2011 compr ehens shantel metab olic panel GFR 100.9 mL/mi n recom davian d GFR by the connie tapia y found ation >60 mL/mi n/1.7 3m2 - maria fernanda l <60 mL/mi n/1.7 3m2 - chron ic kidne y disea se <15 mL/mi n/1.7 3m2 - kidne y failu re Not Available [address], [address], 12/24/2011 12:14:02 12/24/19 12 12/24/2011 compr ehens shantel metab olic panel GFR - if 116.0 mL/mi n for afric an ameri can patie nts: resul ts multi plied by 1.21 Not Available [address], [address], 12/24/2011 12:14:02 12/24/19 12 12/24/2011 compr ehens shantel metab olic panel sodium 137 mmol/ L 136-14 5 Not Available [address], [address], 12/24/2011 12:14:02 12/24/19 12 12/24/2011 compr ehens shantel metab olic panel potassium 4.4 mmol/ L 3.5-5. 1 Not Available [address], [address], 12/24/2011 12:14:02 12/24/19 12 12/24/2011 compr ehens shantel metab olic panel chloride 96 mmol/ L 96-107 Not Available [address], [address], 12/24/2011 12:14:02 12/24/19 12 12/24/2011 compr ehens shantel metab olic panel _anion gap 14.0 Not Available [address], [address], 12/24/2011 12:14:02 12/24/19 12 12/24/2011 compr ehens shantel metab olic panel CO2 27 mmol/ L 21-32 Not Available [address], [address], 12/24/2011 12:14:02 12/24/19 12 12/24/2011 compr ehens shantel metab olic panel calcium 9.6 mg/dL 8.5-10 .3 Not Available [address], [address], 12/24/2011 12:14:02 12/24/19 12 12/24/2011 compr ehens shantel metab olic panel total protein 7.5 g/dL 6.4-8. 2 Not Available [address], [address], 12/24/2011 12:14:02 12/24/19 12 12/24/2011 compr ehens shantel metab olic panel albumin 4.3 g/dL 3.4-5. 0 Not Available [address], [address], 12/24/2011 12:14:02 12/24/19 12 12/24/2011 compr ehens shantel metab olic panel globulin 3.2 g/dL Not Available [address], [address], 12/24/2011 12:14:02 12/24/19 12 12/24/2011 compr ehens shantel metab olic panel A/G 1.3 ratio 0.8-2. 0 Not Available [address], [address], 12/24/2011 12:14:02 12/24/19 12 12/24/2011 compr ehens shantel metab olic panel total bilirubin 0.40 mg/dL 0.00-1 .00 Not Available [address], [address], 12/24/2011 12:14:02 12/24/19 12 12/24/2011 compr ehens shantel metab olic panel AST 27 U/L 15-37 Not Available [address], [address], 12/24/2011 12:14:02 12/24/19 12 12/24/2011 compr ehens shantel metab olic panel ALT 35 U/L 30-65 Not Available [address], [address], 12/24/2011 12:14:02 12/24/19 12 12/24/2011 compr ehens shantel metab olic panel alk. phos. 81 U/L 50-136 Not Available [address], [address], 12/24/2011 12:14:02 12/24/19 12 12/24/2011 thyro id stimu latin g hormo ne (TSH) TSH 0.66 uIU/m L 0.50-6 .00 the ameri can colle ge of endoc rinol ogy and ameri can thyro id assoc iatio n recom mend goal TSH value s betwe en 1.0-2 .5 mIU/m L. Not Available [address], [address], 12/24/2011 12:24:15 12/24/19 12 12/25/2011 T3 free T3, free 3.2 pg/mL 2.3-4. 2 normal Not Available [facility] [address] [place] [address], [address], 12/25/2011 06:01:00 12/24/19 12 12/25/2011 T4 free free T4 1.19 NG/dL 0.75-1 .54 Not Available [address], [address], 12/25/2011 09:10:22 12/24/19 12 12/28/2011 vitam in [...] er than 30 NG/mL . Not Available [address], [address], 12/28/2011 15:28:15 12/24/19 12 12/30/2011 vitam in B12 vitamin B12 557 pg/mL 230-10 50 Not Available [address], [address], 12/30/2011 09:51:41 12/24/19 12 12/30/2011 folat e folate 18 NG/mL 3-16 high Not Available [address], [address], 12/30/2011 11:51:41 10/22/19 12 10/16/2011 pulmo nary funct ion test* No observ ation record ed. [facility] ([facility]) [address] [place], [address], 04/07/2013 05:52:43 12/25/19 12 12/25/2011 ultra sound , pelvi c trans abdom inal & trans vagin al No observ ation record ed. [address], [address], 04/08/2013 03:01:05 01/22/20 12 01/21/2012 mammo gram, scree pradeep No observ ation record ed. [address], [address], 04/08/2013 03:08:43 05/02/20 23 04/30/2023 XR, knee, [...] ality. Bilate ral knee replac ements . Massiel herrera Physic cat: Randal France ms [facility] (Imaging) [address] , [place], [address], 05/04/2023 08:58:54 Result Notes None recorded. Problems Name Problem SNOMED Code Status Onset Date Resolution Date Notes Provider Name and Address Organization Details Recorded Time Nuclear sclerotic cataract 068874954 Active Arnel Olalla, OD [address] [place] [address], [place], [address] , [facility] 5 10:56:16 Mixed hyperlipid emia 215892130 Active 2006 Not Available [facility] 3 03:12:31 Ocular hypertensi on 1607746 Completed 200507/27/2010 Not Available [facility] 3 03:12:31 Cellulitis and abscess of hand excluding digits Completed 200707/27/2010 Not Available [facility] 3 03:12:31 Gingival and periodonta l disease Active Not Available [facility] 3 03:12:31 Chronic bronchitis 10332061 Completed 200507/27/2010 Not Available [facility] 3 03:12:31 Osteoarthr itis of knee 472480176 Completed 200607/27/2010 Not Available [facility] 3 03:12:31 Open angle with borderline findings Active 2007 Not Available [facility] 3 03:12:31 Neck pain 71854030 Completed 200608/02/2013 Not Available [facility] 3 02:00:36 Influenza 7799074 Completed 07/27/2010 Not Available [facility] 3 03:34:33 Closed fracture of forearm 16268949 Completed 200507/27/2010 Not Available [facility] 3 03:12:31 Osteoarthr itis 869505565 Active 2008 Not Available [facility] 3 03:12:31 Localized, primary osteoarthr itis 739836628 Completed 200607/27/2010 Not Available [facility] 3 03:12:31 Major depression , melancholi c type 789675534 Active 2008 Not Available [facility] 3 03:12:31 Chronic gingivitis 78857820 Completed 200607/27/2010 Not Available [facility] 3 03:12:31 Pain in throat 250552523 Completed 07/27/2010 Not Available [facility] 3 03:12:31 Pneumonia 087329322 Completed 200507/27/2010 Not Available [facility] 3 03:12:31 Posterior subcapsula r polar senile cataract 6229592 Active 2005 Not Available [facility] 3 03:12:31 Knee pain Completed 200607/27/2010 Not Available [facility] 3 03:12:31 Joint pain 47338795 Completed 200807/27/2010 Not Available [facility] 3 03:12:31 Candidiasi s 87628944 Completed 200807/27/2010 Not Available [facility] 3 03:12:31 Acute maxillary sinusitis 00852115 Completed 200407/27/2010 Not Available [facility] 3 03:12:31 Periapical abscess with sinus tract 50909463 Completed 07/27/2010 Not Available [facility] 3 03:12:31 Disorder of jaw 31709378 Completed 200707/27/2010 Not Available [facility] 3 03:12:31 Hereditary retinal dystrophy 26047539 Completed 200507/27/2010 Not Available [facility] 3 03:12:31 Degenerati ve joint disease involving multiple joints 549003030 Completed 200607/27/2010 Not Available [facility] 3 03:12:31 Acute bronchitis 23029022 Completed 200407/27/2010 Not Available [facility] 3 03:12:31 Malaise and fatigue 409059639 Completed 200607/27/2010 Not Available [facility] 3 03:12:31 Cough 87134125 Completed 200407/27/2010 Not Available [facility] 3 03:12:31 Extrinsic asthma with asthma attack Active Not Available [facility] 3 03:34:33 Extrinsic asthma with asthma attack Completed 200407/27/2010 Not Available [facility] 3 03:12:31 Fever 020927689 Completed 200507/27/2010 Not Available [facility] 3 03:12:31 Chronic obstructiv e pulmonary disease 59582515 Active 2006 Not Available [facility] 3 03:12:31 Myopia 29638551 Active 2005 Arnel Steve, [address], [place], [address] , [facility] 5 10:56:16 Intrinsic asthma 911695472 Active Not Available [facility] 3 03:34:33 Tobacco user 830531105 Active 2004 Not Available [facility] 3 03:12:31 Acute apical periodonti tis of pulpal origin 98130310 Completed 200807/27/2010 Not Available [facility] 3 03:12:31 Allergic asthma without status asthmaticu s 63193697 Active 2004 Not Available [facility] 3 03:12:31 Acute sinusitis 80657308 Completed 07/27/2010 Not Available [facility] 3 03:12:31 Joint pain in ankle and foot Completed 200608/02/2013 Not Available [facility] 3 02:01:26 Emphysemat ous bronchitis 333606519 Completed 200607/27/2010 Not Available [facility] 3 03:12:31 Disorder of teeth AND/OR supporting structures 868607668 Completed 200507/27/2010 Not Available [facility] 3 03:12:31 Acute upper respirator y infection 99694063 Completed 07/27/2010 Not Available [facility] 3 03:34:33 Periapical abscess without sinus tract Completed 200507/27/2010 Not Available [facility] 3 03:12:31 Common cold 48264112 Completed 07/27/2010 Not Available [facility] 3 03:12:31 Panic disorder without agoraphobi a 48835728 Completed 200407/27/2010 Not Available [facility] 3 03:12:31 Opioid dependence 01338426 Active 2007 Not Available [facility] 3 03:12:31 Current knee cartilage tear Completed 200407/27/2010 Not Available [facility] 3 03:12:31 Asthma 754905482 Active 2008 Not Available [facility] 3 03:12:31 Visual field defect 34026205 Active 2007 Not Available [facility] 3 03:12:31 Problem Notes None recorded. Procedures Surgical History Date Name Laterality Status Provider Name and Address Organization Details Recorded Time 05/22/20 15 Refraction completed Nayely Foreman MA [facility] 05/22/2015 09:58:16 12/24/19 12 Smoking cessation counseling completed Anayeli Rodriguez [facility] 12/24/2011 09:12:02 12/24/19 12 Asthma Control Test (12 + years old) completed Anayeli Rodriguez [facility] 12/24/2011 09:12:02 08/20/20 11 Smoking cessation counseling completed Anayeli Rodriguez [facility] 08/20/2011 16:05:01 09/13/19 10 Tubal Ligation completed Oneyda Prado NP [address] [place] [address], [address], [facility] 12/24/2011 09:48:33 07/10/20 09 Nebulizer Tx completed Naeem Lechuga NP [address] [place] [address], [address], [facility] 07/10/2009 17:30:24 09/13/19 00 completed Oneyda Prado NP [address] [place] [address], [address], [facility] 12/24/2011 09:48:33 09/13/18 91 completed Oneyda Prado NP [address] [place], [address], [facility] 12/24/2011 09:48:33 09/13/18 85 completed Oneyda Prado NP [address] [place], [address], [facility] 12/24/2011 09:48:33 Cholecystectomy completed Oneyda Prado NP [address] [place] [address], [address], [facility] 12/24/2011 09:48:33 Imaging Results Imaging Date Name Status LastModified by Organization Details LastModified Time 10/16/2011 pulmonary function test* completed [facility] ([facility]) [address] [place], [address], 04/07/2013 05:52:43 12/25/2011 ultrasound, pelvic transabdominal & transvaginal completed [address], [address], 04/08/2013 03:01:05 01/21/2012 mammogram, screening completed [address], [address], 04/08/2013 03:08:43 04/30/2023 XR, knee, weightbearing completed [facility]) [address], [place], [address], 05/04/2023 08:58:54 Procedure Notes None recorded. Medical Equipment None Reported. Allergies Allergen ID Allergen Name Allergen Category Reaction Reaction Severity Criticality Documentation Date Start Date Code Code System Note Provider Name and Address Organization Details Recorded Time 17897 codeine medicatio n nausea vomiting Not available Not available Not available 02/07/2009 2670 RxNorm DID NOT take with food per PI=ok ay now per patie nt took cough syrup w/cod eine & was ok-LB artak ,rma Not Available [facility] 1 06:05:20 11823 doxycycli ne Not available other severe Not available 03/29/2009 3640 RxNorm high fever and thrus h Not Available [facility] 1 06:05:20 76067 Chantix medicatio n vomiting Not available Not available 12/24/2011 22200 0 RxNorm stick to stoma ch Anayeli FLORES Rodriguez [facility] 2 09:04:21 Medications Name Sig Start Date [...] for pain as needed 2008 active [facility] pt Not Available Not Available Not Available [...] weight Body mass index (BMI) Body temperature Oxygen saturation Oxygen saturation in Arterial blood by Pulse oximetry Systolic blood pressure Diastolic blood pressure Provider Name and Address Organization Details Last Updated DateTime 1 152.4 cm 88902.1 96393 g 26.3 kg/m2 99.5 [degF] 93 % 93 % 104 mm[Hg] 52 mm[Hg] Anayeli Rodriguez [facility] 1 16:04:10 Date Recorded Body height Body weight Body mass index (BMI) Heart rate Systolic blood pressure Diastolic blood pressure Provider Name and Address Organization Details Last Updated DateTime 2 152.4 cm 32069.9 98248 g 23.9 kg/m2 68 /min 96 mm[Hg] 60 mm[Hg] Anayeli Rodriguez [facility] 2 09:03:25 Social History Question Answer Notes LastModified by Organizat ion Details LastModified Time Tobacco Smoking Status Current Every Day Smoker 1PPD (working on quitting; restarted 10/2010) [facility] 11/29/2010 10:20:17 Do You Have An Advance [...] available 12/24/2011 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 With Others W/ And Smitha. Dog/4 Cats/fish Information not available 12/24/2011 Marital Status Lowell (brain Cancer) pcarlan Information not available 11/29/2010 Mosquito Repellent Used Routinely No Information not available 12/24/2011 How Many Children Do You Have? 3 Andrzej (1984) Thalia (1990) Smitha(1999) Information not available 12/24/2011 Seat Belts Used Routinely Yes Information not available 12/24/2011 Are You Sexually Active? Yes Information not available 07/30/2011 Smoke Alarm In [...] usly record ed as Cancer - Lung DBA_[email or web address]_ Not available 04/24/2013 03:00:42 Mother Depressive disorder 39 suicid e (previ ously record ed as Depres leighton) DBA_[email or web address]_ Not available 04/24/2013 03:00:42 Daughter Tuberous sclerosis syndrome DBA_PATCH_ Not available 04/24/2013 03:00:42 Sister Disorder of thyroid gland hypoth yroid (previ ously record ed as Thyroi d Diseas e) DBA_PATCH_ Not available 04/24/2013 03:00:42 Sister Disorder of thyroid gland hypoth yroid (previ ously record ed as Thyroi d Diseas e) [email or web address] Not available 04/24/2013 03:00:42 Sister Disorder of thyroid gland hypoth yroid (previ ously record ed as Thyroi d Diseas e) DBA_PATCH_ Not available 04/24/2013 03:00:42 Father Diabetes mellitus 45 previo usly record ed as Diabet es [email or web address] [id number] Not available 04/24/2013 03:00:42 Father Myocardial infarction 45 [email or web address] [id number] Not available 04/24/2013 03:00:42 Father Hypertensive disorder previo usly record ed as Hypert ension [email or web address] [id number] Not available 04/24/2013 03:00:42 Medical History Condition Response Allergic Rhinitis Y Osteoarthritis Y COPD Y Asthma Y Chronic Back Pain Y Gynecological History Statement/Question Response Current Control Method Date of LMP 09/13/2008 Approximate Obstetrics History GPAL:G 0 P 0 0 0 0 Immunizations Vaccine Type Date Status Note Provider Nam e and Address Organization Details Recorded Time influenza, unspecified formulation 5 completed Not Available [facility] 07/29/2011 05:21:29 pneumococcal polysaccharide PPV23 5 completed Not Available [facility] 07/29/2011 05:21:29 Tdap 2 completed Not Available [facility] 09/30/2019 02:15:46 Past Encounters Encounter ID Performer Location Encounter Start Date Encounter Closed Date Diagnosis/Indication Diagnosis SNOMED-CT Code Diagnosis ICD10 Code Diagnosis Note [id number] NAY CHOUDHURY, OFFICE [address] [place] [address] [place] [id number] 09/25/2004 12:51:49 10/03/2008 02:02:29 [id number] NAY CHOUDHURY, OFFICE [address] [place] [address] [place] [id number] 10/29/2004 08:59:45 10/29/2004 11:20:01 [id number] NAY CHOUDHURY, OFFICE [address] [place] [address] [place] [id number] 11/10/2004 12:49:00 11/10/2004 16:22:43 [id number] NAY CHOUDHURY, OFFICE [address] [place] [address] [place] [id number] 11/14/2004 14:21:19 11/14/2004 17:49:37 [id number] NAY CHOUDHURY, OFFICE [address] [place] [address] [place] [id number] 12/29/2004 12:52:04 10/03/2008 02:02:29 [id number] NAY CHOUDHURY, OFFICE [address]ij[address]illo, DEIRDRE [id number] 03/27/2005 12:39:28 03/27/2005 14:25:32 [id number] [facility] [place], [place] [address] Abhijit castillo, DEIRDRE [id number] 1 05/04/2005 14:53:00 05/04/2005 16:49:28 [id number] [facility] [place], OFFICE [address] Abhijit castillo, [place] [id number] 1 08/12/2005 08:17:00 08/12/2005 10:50:21 [id number] [facility] [place], OFFICE [address] Abhijit castillo, [place] [address]131 1 10/30/2005 10:43:43 10/30/2005 17:56:01 [id number] [facility] [place], OFFICE [address] Abhijit castillo, [place] [id number] 1 12/04/2005 08:39:25 12/04/2005 11:41:46 [id number] [facility] [place], [facility] [address] [place] [address] Miracle castillo, DEIRD[place] [id number] 3 12/26/2005 00:00:00 10/03/2008 02:02:29 [id number] [facility] [place], OFFICE 329 [facility] Miracle castillo, DEIRD[place] [address]060 1 01/11/2006 10:34:20 01/11/2006 15:12:49 [id number] [facility] [place], OFFICE 329 [facility] Miracle castillo, DEIRDRE 15798-483 1 03/02/2006 14:15:41 10/03/2008 02:02:29 [id number] [facility] [place], OFFICE [address] Abhijit castillo, DEIRD[place] [address]74 1 03/08/2006 07:23:58 03/08/2006 14:44:20 [id number] Eye Care, [facility] [place] [address] Abhijit castillo, [place] [id number] 1 04/19/2006 10:24:01 10/03/2008 02:02:29 [id number] [facility] [place], OFFICE [address] Abhijit castillo, [place] [address]-338 1 04/28/2006 08:32:39 04/28/2006 11:32:42 [id number] [facility] [place], OFFICE [address] Abhijit catsillo, DEIRD[place] [address]272 1 05/21/2006 10:22:13 05/21/2006 15:17:03 [id number] [facility] [place], OFFICE [address] castillo, DE[place] [address]399 1 07/10/2006 10:08:59 07/13/2006 06:28:57 [id number] [facility] [place], OFFICE [address] castillo, [place] [id number] 1 07/29/2006 15:29:19 07/30/2006 06:25:09 [id number] [facility] [place], OFFICE [address] cast[address], DEIRD[place] Moran19904-245 1 08/30/2006 16:42:37 08/31/2006 06:43:47 [id number] [facility] [place], OFFICE [address] cast[address], DEIRD[place] Moran11512-105 1 09/02/2006 16:52:36 10/03/2008 02:02:29 [id number] [facility] [place], OFFICE [address] castillo, [place] [address]537 1 10/01/2006 10:17:08 10/01/2006 15:56:55 [id number] [facility] [place], OFFICE [address] castillo, [place] [address]-111 1 10/26/2006 10:50:41 10/26/2006 17:33:00 [id number] [facility] [place], OFFICE [address] castillo, DEIRD[place] [id number] 1 11/08/2006 15:06:05 11/08/2006 15:54:28 [id number] [facility] [place] [address] castillo, [place] [address]173 1 11/17/2006 10:40:24 11/17/2006 14:58:30 [id number] [facility] [place], OFFICE [address] castillo, [place]IRD[place] [address]-084 1 12/21/2006 15:45:03 12/22/2006 06:44:16 [id number] [facility] [place], OFFICE [address] castillo, DEIRD[place] [id number] 1 01/01/2007 12:32:12 01/03/2007 06:28:23 [id number] [facility] [place], OFFICE [address] castillo, DEIRD[place] [id number] 1 02/05/2007 11:22:17 02/08/2007 06:29:10 [id number] [facility] [place], OFFICE [address] castillo, [place] [address]6762-764 1 02/10/2007 15:11:55 02/11/2007 14:59:27 [id number] [facility] [place], OFFICE [address] castillo, [place] [address]-587 1 05/26/2007 13:04:33 05/26/2007 16:57:49 [id number] [facility] [place], OFFICE [address] castillo, [place] [id number] 1 06/23/2007 10:59:00 06/23/2007 15:26:02 [id number] [facility] [place], OFFICE [address], [place] [id number] 1 07/13/2007 16:56:52 10/03/2008 02:02:29 [id number] [facility] [place] [address] castillo, [place] [id number] 1 07/26/2007 14:51:33 07/27/2007 06:47:41 [id number] [facility] [place] [address] F[address]MIN D, [place] [address]523 1 07/27/2007 08:36:51 07/27/2007 08:37:47 [id number] [facility] [place], OFFICE [address]ijit Fermin d, [place] [address]-851 1 07/26/2007 08:28:21 10/03/2008 02:02:29 [id number] [facility] [place], [address] [place] [address] 08/19/2007 00:00:00 10/03/2008 02:02:29 [id number] [facility] [place], OFFICE [address]ij[address] Fermin d, [place] [address]-991 1 08/30/2007 15:22:32 10/03/2008 02:02:29 [id number] [facility] [place], OFFICE [address] Fermin d, [place] [id number] 1 09/22/2007 13:04:24 10/03/2008 02:02:29 [id number] [facility] [place], OFFICE [address], [place] [id number] 1 02/02/2008 09:37:34 10/03/2008 02:02:29 [id number] [facility] [place] [address] FER[address] D, [place] [address]59[address]-378 1 02/03/2008 08:01:39 02/03/2008 08:01:57 [id number] Eye Care, [facility] [place] [address] 1 03/26/2008 09:41:37 03/27/2008 10:26:02 [id number] Eye Care, [facility] [place] [address] 1 04/05/2008 09:31:28 04/06/2008 11:55:36 [id number] [facility] [place], OFFICE [address] castillo, [place] [id number] 1 05/22/2008 08:19:00 10/03/2008 02:02:29 [id number] [facility], OFFICE [address] castillo, [place] [id number] 1 06/18/2008 09:07:10 10/03/2008 02:02:29 [id number] [facility], OFFICE [address] castillo, [place] [id number] 1 07/26/2008 11:05:51 10/03/2008 02:02:29 [id number] [facility], OFFICE [address] castillo, [place] [id number] 1 12/05/2008 11:07:42 12/06/2008 09:14:52 [id number] [facility], OFFICE [address] castillo, [place] [id number] 1 12/26/2008 15:05:22 12/27/2008 10:26:03 [id number] [facility], OFFICE [address] castillo, [place] [id number] 1 12/31/2008 17:34:41 01/01/2009 08:17:24 [id number] [facility], OFFICE [address] castillo, [place] 92904-226 1 01/21/2009 12:39:27 01/22/2009 09:21:24 [id number] [facility], OFFICE [address] castillo, [place] [id number] 1 01/28/2009 13:46:14 01/29/2009 08:35:08 [id number] [facility] [place], OFFICE [address] castillo, [place] 93553-656 1 02/07/2009 08:16:26 02/08/2009 09:44:33 [id number] Radiology , [facility] [place] Rico castillo, [place] [address]6463-955 1 02/07/2009 09:45:23 02/08/2009 14:53:10 [id number] [facility] [place], OFFICE [address] castillo, [place] 82503-987 1 02/22/2009 17:19:06 02/25/2009 08:59:42 [id number] [facility] [place], OFFICE [address] castillo, [place] [id number] 1 03/29/2009 09:07:32 04/01/2009 09:22:53 [id number] [facility] [place], OFFICE [address] castillo, [place] [address]24-477 1 04/19/2009 11:12:01 04/22/2009 10:31:20 [id number] [facility] [place], OFFICE [address] castillo, [place] [id number] 1 04/27/2009 10:09:21 04/29/2009 09:36:30 [id number] [facility] [place], OFFICE [address] castillo, [place] 98642-545 1 07/10/2009 15:58:55 07/11/2009 08:25:40 [id number] Radiology , [facility] [place] [address] 1 02/07/2009 00:00:00 07/11/2009 02:00:52 [id number] LAB - [facility] [place] [address] 1 02/07/2009 09:59:30 02/07/2009 09:59:38 [id number] [facility] [place], [address] [place] castillo, [place] [id number] 7 03/09/2009 00:00:00 07/11/2009 02:00:52 [id number] Radiology , [facility] [place] [address] 1 10/31/2009 15:58:03 11/01/2009 11:18:53 [id number] [facility] [place], OFFICE [address] [place] [address]-907 1 07/15/2010 15:48:57 07/16/2010 08:11:32 [id number] [facility] [place], OFFICE [address] [place] [address]-647 1 07/17/2010 15:45:27 07/18/2010 08:26:51 [id number] Radiology , [facility] [place] [address]-091 1 07/17/2010 16:11:55 07/17/2010 16:32:29 [id number] , [facility] [place], OFFICE [address] [place] [address]-863 1 11/29/2010 10:07:42 12/01/2010 07:51:11 [id number] , [facility] [place], OFFICE [address] [place] [address]-389 1 08/20/2011 15:52:20 08/21/2011 08:22:49 [id number] , [facility] [place], OFFICE [address] [place] [address] 1 12/24/2011 08:39:41 12/24/2011 10:22:36 [id number] Radiology , [facility] [place] [address]-465 1 12/25/2011 09:10:30 12/28/2011 13:46:59 [id number] Radiology , [facility] [place] Rico castillo, [place] [address]88[address]-688 1 01/21/2012 09:30:59 01/25/2012 09:10:04 [id number] Arnel Steve, OD Eye Care, [facility] [place] [address] 1 05/22/2015 09:03:41 05/22/2015 10:52:23 Myopia [id number] 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 Presbyopia [id number] Health Concerns Section Related Observation LastModified by Organization Detai ls LastModified Time None Recorded Concern Status LastModified by Organization Details LastModified Time None Recorded Advance Directives Directive Y: Lowell Payers Encounter Date Sequence Insurance Name Policy Number Policy Brown Covered Member ID Brown Member ID Guarantor Name 08/20/2011 1 [facility] - PLAN TYPE 3 (MEDICAID HMO) [id number] Ella Hassan [id number] Ella Hassan 12/24/2011 1 [facility] - PLAN TYPE 3 (MEDICAID HMO) [id number] Ella Hassan [id number] Ella Mo 12/25/2011 1 [facility] - PLAN TYPE 3 (MEDICAID HMO) [id number] Ella Mo [id number] Ella Mo 01/21/2012 1 [facility] - PLAN TYPE 3 (MEDICAID HMO) [id number] Ella Mo [id number] Ella Mo 05/22/2015 1 [facility] (MEDICAID HMO) [id number] Ella Mo [id number] Ella Mo Notes Date Note Type Note Provider Name and Address Organization Details Recorded Time 08/20/2011 text/html Sx as above. Sick x 1 month. Was given Z-gerardo at [facility] in June for pneumonia, felt better for a few days, then started feeling sick again. She's wheezing; uses Duoneb 2x/noc, perhaps 1x/day. Dtr had brain surgery 3 wks ago; she's taking care of 20yo dtr and (w/ brain tumor), also 11yo dtr (healthy). Oneyda Prado, JABIER [address] [place] [address], [place], [address], [facility] 08/20/2011 20:54:21 OBGyn Episode No OBEpisode recorded.
--- OUTSIDE RECORDS SUMMARY | 2025-01-03 06:40 | XMS_ITS | Encounter Summary ---
Author Organization [employer] Address [address] [place] [address] Care Team Providers Care Tomographic Tech Name Role Phone Angelita Allred Primary Care Provider Unavailab panda Annie Coto Unavailable AyersKristan Unavailable [phone] AyersKristan Unavailable [phone] Omayra Bernal NP Primary Care Provider [phone] Encounter Details Date Type Department Care Team (Late st Contact Info) Description 09/24/[address] [facility] [address] [place] [phone] Angelita Allred FNP Social History Tobacco Use Types Packs/Day Years Used Date Smoking Tobacco: Never Assessed Comments Unknown Sex and Gender Information Value Date Recorded [...] suspected to have Coronavirus/COVID-19? No / Unsure 09/25/2022 9:42 AM EST documented as of this encounter Plan of Treatment Not on file documented as of this encounter Visit Diagnoses Not on filedocumented in this encounter Care Teams Tomographic Tech Relationship Specialty Start Date End Date Angelita Allred FNP PCP - General Family Medicine 08/25/22 06/27/23 Omayra Bernal NP [address] [place] [address] [phone] PCP - General Family Medicine 06/28/23 Annie Coto [address] [place] [address] 03/30/23 03/28/[address] [address] 04/23/23 05/16/[address] [address] 06/10/23 05/16/24 documented as of this encounter
--- OUTSIDE RECORDS SUMMARY | 2025-01-03 06:40 | XMS_ITS | Encounter Summary ---
Author Organization [employer] Address [address] [facility] 7 [place] [address] Care Team Providers Care Waste Transportation Technician Name Role Phone Omayra Bernal NP Primary Care Provider Encounter Details Date Type Department Care Team (Late st Contact Info) Description 11/06/2024 Telephone [facility] [address] [place] [phone] Omayra Bernal NP 102 [place], [place] [phone] Social History Tobacco Use Types Packs/Day Years [...] the past 12 months, has t he [employer], [employer], oil or water company threatened to shut [...] encounter Miscellaneous Notes * Telephone Encounter - Tara Ragland - 11/07/2024 9:33 AM EST Called pt and let her know it's through [facility] and to reach out to them, pt understood and had no further questions. * Telephone Encounter - Lily Ames - 11/06/2024 12:44 PM EST Prescribing Provider: Medication Name: ARIPiprazole (Abilify) 2 MG Dosage: 5 Days or More Supply: Yes Pharmacy: [id number] - [place], [place] - [address] [facility] [address] [facility] [phone] documented in this encounter Plan of Treatment Not on file documented as of this encounter Visit Diagnoses Not on filedocumented in this encounter Additional Health Concerns Assessment Noted Time PHQ-9 Depression Total Score: 22 025 4:32 PM EST documented as of this encounter Care Teams Waste Transportation Technician Relationship Specialty Start Date End Date Omayra Bernal NP [address] [place] [address] PCP - General Family Medicine 06/28/23 documented as of this encounter
--- OUTSIDE RECORDS SUMMARY | 2025-01-03 06:40 | XMS_ITS | Encounter Summary ---
Author Organization [employer] Address [address] [facility] 7t [place] [address] Care Team Providers Care C.O.D. Audit Clerk Name Role Phone Annie Coto Unavailable Kristan Ayers Unavailable [phone] Kristan Ayers Unavailable [phone] Omayra Bernal GREENKEEPER Primary Care Provider [phone] Encounter Details Date Type Department Care Team (Late st Contact Info) Description 07/01/2023 Abstract [facility] [address] [place] [address] Omayra Bernal, JABIER 102 [place] [address] Social History Tobacco Use Types Packs/Day Years Used Date Smoking Tobacco: Every Day Cigarettes Passive Smoke Exposure: Past Smokeless Tobacco: Never Alcohol Use Standard Drinks/Week Comments Not Currently 0 (1 standard drink = 0.6 oz pur e alcohol) Housing Stability Answer Date Recorded What is your housing situation today? I have mirtha schuler 06/28/[address] you li ve. Do you have problems with any of the following? None of the above 06/28/2023 Food Insecurity Answer Date Recorded Within the past 12 months, y ou worried that your food would run out before you got money to buy more: Often true 06/28/2023 Within the past 12 months,th e food you bought just didn't last and you didn't have enough money to get more: Often true Transportation Answer Date Recorded In the past 12 months, has l ack of transportation kept you from medical appts, meetings, work or from getting things needed for daily living? Yes, it has kept me from medical appointments or getting medications. 06/28/2023 Utilities Answer Date Recorded In the past 12 months, has t he electric, gas, oil or water company threatened to shut off services in your home? Yes 06/28/2023 Comments No Sex and Gender Information Value [...] on filedocumented in this encounter Care Teams C.O.D. Audit Clerk Relationship Specialty Start Date End Date Omayra Bernal NP [address] [place] [address] PCP - General Family Medicine 06/28/23 Annie Coto [address] [place] [address] 03/30/23 03/28/24 Kristan Ayers [address] [place] [address] 04/23/23 05/16/[address] [address] 06/10/23 05/16/24 documented as of this encounter
== END 2025-01-02 06:37 | disposition home or self-care (01) ==
LOC: HO.HOSX 06:36
PROVIDERS: Visit Provider Physician Assistant
DX: Z13.89 Encounter for screening for other disorder (principal)

== ENCOUNTER 2025-01-04 08:35 | Outpatient (REF) | payer MEDICAID, SELFPAY ==
--- OUTSIDE RECORDS SUMMARY | 2025-01-05 08:39 | XMS_ITS | Encounter Summary ---
Author Organization [employer] Address [address] [facility] 7 [place] [address] Care Team Providers Care Filtrose Crusher Name Role Phone Omayra Bernal NP Primary Care Provider [phone] Encounter Details Date Type Department Care Team (Late st Contact Info) Description 10/20/2024 Telephone [facility] 102 [place] [phone] Omayra Bernal NP 102 [place], [place] [phone] Social History Tobacco Use Types Packs/Day Years [...] the past 12 months, has t he [employer], [employer], oil or water [employer] threatened to shut off services in your [...] and also any last office not to [phone] documented in this encounter Plan of Treatment Not on file documented as of this encounter Visit Diagnoses Not on filedocumented in this encounter Additional Health Concerns Assessment Noted Time PHQ-9 Depression Total Score: 22 025 4:32 PM EST documented as of this encounter Care Teams Filtrose Crusher Relationship Specialty Start Date End Date Omayra Bernal NP [facility] [place] [address] PCP - General Family Medicine 06/28/23 documented as of this encounter
--- OUTSIDE RECORDS SUMMARY | 2025-01-05 08:39 | XMS_ITS | Encounter Summary ---
Author Organization [employer] Address [address] [facility] 7 [place] [address] Care Team Providers Care Compressor Engineer Name Role Phone Omayra Bernal NP Primary Care Provider [phone] Encounter Details Date Type Department Care Team (Late st Contact Info) Description 08/28/2024 Telephone [facility] 102 [place] [phone] Omayra Bernal NP 102 [place] [address] Social History Tobacco Use Types Packs/Day Years [...] the past 12 months, has t he [employer], gas, oil or water company threatened to [...] her referral for hip surgery. Please advise [phone] (It shows still pending since 08/01) documented in this encounter Plan of Treatment Not on file documented as of this encounter Visit Diagnoses Not on filedocumented in this encounter Additional Health Concerns Assessment Noted Time PHQ-9 Depression Total Score: 17 023 10:11 AM EST documented as of this encounter Care Teams Compressor Engineer Relationship Specialty Start Date End Date Omayra Bernal NP [address] [place] [address] PCP - General Family Medicine 06/28/23 documented as of this encounter
--- OUTSIDE RECORDS SUMMARY | 2025-01-05 08:39 | XMS_ITS | Encounter Summary ---
Author Organization [employer] Address 75 [facility] 7t [place] [address] Care Team Providers Care Mergers And Acquisitions Manager Name Role Phone Annie Coto Unavailable Kristan Ayers Unavailable [phone] Kristan Ayers Unavailable Omayra Bernal SENIOR ANALYTICAL CHEMIST Primary Care Provider [phone] Encounter Details Date Type Department Care Team (Late st Contact Info) Description 12/02/2023 Telephone [facility] 102 [place] [address] Omayra Bernal, JABIER 102 [place] [address] Social History Tobacco Use Types Packs/Day Years [...] 12/02/2023 11:21 AM EDT SHARON sent to [employer] for [employer] * Telephone Encounter - Thalia [...] documented as of this encounter Care Teams Mergers And Acquisitions Manager Relationship Specialty Start Date End Date Omayra Bernal NP 102 [place] [address] PCP - General Family Medicine 06/28/23 Annie Coto 119 [place] [address] 03/30/23 03/28/24 Kristan Ayers 102 [place] [address] 04/23/23 05/16/24 Armen Kristan 102 [place] [address] 06/10/23 05/16/24 documented as of this encounter
--- OUTSIDE RECORDS SUMMARY | 2025-01-05 08:39 | XMS_ITS | Encounter Summary ---
Author Organization [employer] Address [address] [facility] 7t [place] [address] Care Team Providers Care Paint Trimmer Pipe Bowls Name Role Phone Annie Coto Unavailable Kristan Ayers Unavailable [phone] Kristan Ayers Unavailable [phone] Omayra Bernal ADULT CAREGIVER Primary Care Provider [phone] Encounter Details Date Type Department Care Team (Late st Contact Info) Description 02/03/[address] [place] [address] Omayra Bernal NP [address] [place] [address] Social History Tobacco Use Types Packs/Day Years [...] documented as of this encounter Care Teams Paint Trimmer Pipe Bowls Relationship Specialty Start Date End Date Omayra Bernal NP 102 [place] [address] PCP - General Family Medicine 06/28/23 Annie Coto 119 [place] [address] 03/30/23 03/28/24 Kristan Ayers 102 [place] [address] 04/23/23 05/16/24 Kristan Ayers 102 [place] [address] 06/10/23 05/16/24 documented as of this encounter
--- OUTSIDE RECORDS SUMMARY | 2025-01-05 08:39 | XMS_ITS | Encounter Summary ---
Author Organization [employer] Address [address] [facility] 7t [place] [address] Care Team Providers Care Core Cleaner Name Role Phone Annie Coto Unavailable Kristan Ayers Unavailable [phone] Kristan Ayers Unavailable [phone] Omayra Bernal NP Primary Care Provider [phone] Reason for Visit * Reason Comments Med Refill Encounter Details Date Type Department Care Team (Late st Contact Info) Description 09/09/2023 Refill [facility] 102 [place] [phone] Ginny Ospina FNP 102 [place] [address] Idiopathic peripheral autonomic neuropathy Social History Tobacco [...] documented as of this encounter Care Teams Core Cleaner Relationship Specialty Start Date End Date Omayra Bernal NP 102 [place] [address] PCP - General Family Medicine 06/28/23 Annie Coto 119 [place] [address] 03/30/23 03/28/24 Ayers Kristan 102 [place] [address] 04/23/23 05/16/24 [place] [address] [place] [address] 06/10/23 05/16/24 documented as of this encounter
--- OUTSIDE RECORDS SUMMARY | 2025-01-05 08:39 | XMS_ITS | Encounter Summary ---
Author Organization [employer] Address [address] [place] [address] 7t [place] [address] Care Team Providers Care Mobile Development Manager Name Role Phone Angelita Allred Primary Care Provider Unavailab panda Annie Coto Unavailable Kristan Ayers Unavailable [phone] Kristan Ayers Unavailable [phone] Omayra Bernal NP Primary Care Provider [phone] Encounter Details Date Type Department Care Team (Late st Contact Info) Description 11/11/2022 Orders Only [address] [place] [phone] Ginny Ospina FNP [address] [place] [address] Localized edema (Primary Dx) Social History Tobacco Use Types Packs/Day Years Used Date Smoking Tobacco: Every Day Cigarettes Passive Smoke Exposure: Past Smokeless Tobacco: Never Comments No Sex and Gender Information Value [...] suspected to have Coronavirus/COVID-19? No / Unsure 11/04/2022 10:41 AM EST documented as of this encounter Plan of Treatment Not on file documented as of this encounter Visit Diagnoses Diagnosis Localized edema- Primary Edema documented in this encounter Care Teams Mobile Development Manager Relationship Specialty Start Date End Date Angelita Allred FNP PCP - General Family Medicine 08/25/22 06/27/23 Omayra Bernal NP [address] [place] [address] PCP - General Family Medicine 06/28/23 Annie Coto [address] [place] [address] 03/30/23 03/28/24 Kristan Ayers 102 [place] [address] 04/23/23 05/16/[address] [address] 06/10/23 05/16/24 documented as of this encounter
--- OUTSIDE RECORDS SUMMARY | 2025-01-05 08:39 | XMS_ITS | Encounter Summary ---
Author Organization [employer] Address [address] [facility] 7 [place] [address] Care Team Providers Care Work And Family Life Consultant Name Role Phone Omayra Bernal NP Primary Care Provider [phone] Encounter Details Date Type Department Care Team (Late st Contact Info) Description 10/05/2024 Telephone [facility] [address] [place] [phone] Omayra Bernal NP [address] [place], [place] [phone] Social History Tobacco Use Types Packs/Day Years [...] the past 12 months, has t he [employer], gas, oil or water company threatened to [...] 10:31 AM EST Processed and faxed Auth #[id number] Valid 10/06/24-10/06/25 Visits: 20 * Telephone Encounter - Milo Cuenca - 10/05/2024 3:02 PM EST Provider left a voicemail asking for a referral for physical therapy, they're asking for 20 visits with an NPI of [id number] and a start date of 10/06/24. Their call back number is [phone] documented in this encounter Plan of Treatment Not on file documented as of this encounter Visit Diagnoses Not on filedocumented in this encounter Additional Health Concerns Assessment Noted Time PHQ-9 Depression Total Score: 17 023 10:11 AM EST documented as of this encounter Care Teams Work And Family Life Consultant Relationship Specialty Start Date End Date Omayra Bernal NP [address] [place] [address] PCP - General Family Medicine 06/28/23 documented as of this encounter
--- OUTSIDE RECORDS SUMMARY | 2025-01-05 08:39 | XMS_ITS | Encounter Summary ---
Author Organization [employer] Address [address] [place] [address] [address] [place] [address] Care Team Providers Care New Vehicle Sales Consultant Name Role Phone Annie Coto Unavailable Kristan Ayers Unavailable [phone] Armen Kristan Unavailable [phone] Omayra Bernal NP Primary Care Provider [phone] Reason for Referral * Imaging (Routine) - Closed Specialty Diagnoses / Procedures Referred By Contac t Referred To Contact Radiology Diagnoses Breast cancer screening by mammogram Procedures BI Mammogram Screening Bilateral Omayra Bernal NP [address] [place] [address] Phone: tel: fax: Referral ID Status Reason Start Date Expiration Date Visits Re quested Visits Authorized [id number] Closed 12/06/2023 12/05/2024 1 1 Encounter Details Date Type Department Care Team (Late st Contact Info) Description 12/06/[address] [facility] [address] [place] [phone] Omayra Bernal NP [address] [place] [address] Breast cancer screening by mammogram Social History [...] Benign. Lay letter mailed to patient. WSN: [id number] Ordering Physician: Omayra Bernal Dictated By: ?Kenny Burgos MD Dictated Date/Time: ?12/20/23 12:01 pm Reviewed By: ?Kenny Burgos MD Signed By: ? Kenny Burgos MD Signed Date/Time: ? 12/20/23 12:01 pm Transcribed By: ? CSB Ice Guard Tester Date/Time: ? 12/20/23 11:51 am Birads: Procedure [...] Benign. Lay letter mailed to patient. WSN: [id number] Ordering Physician: Omayra Bernal Dictated By: Kenny Burgos MD Dictated Date/Time: 12/20/23 12:01 pm Reviewed By: Kenny Burgos MD Signed By: Kenny Burgos MD Signed Date/Time: 12/20/23 12:01 pm Transcribed By: CSB Ice Guard Tester Date/Time: 12/20/23 11:51 am Birleopoldo: Omayra Bernal NP IMG BI PROCEDURES Final Result documented in this encounter Visit Diagnoses Diagnosis Breast cancer screening by mammogram documented in this encounter Additional Health Concerns Assessment Noted Time PHQ-9 Depression Total Score: 17 12/18/2 023 10:11 AM EST documented as of this encounter Care Teams New Vehicle Sales Consultant Relationship Specialty Start Date End Date Omayra Bernal NP [address] [place] [address] PCP - General Family Medicine 06/28/23 [place] [address] 03/30/23 03/28/24 [place], [place] [address] [place] [address] 04/23/23 05/16/24 [place], [place] [address] [place] [address] 06/10/23 05/16/24 documented as of this encounter
--- OUTSIDE RECORDS SUMMARY | 2025-01-05 08:40 | XMS_ITS | Encounter Summary ---
Author Organization [employer] Address 75 [facility] 7 [place] [address] Care Team Providers Care Tape Rules Printing Machine Operator Name Role Phone Omayra Bernal NP Primary Care Provider [phone] Encounter Details Date Type Department Care Team (Late st Contact Info) Description 11/06/[address] [facility] [address] [place] [phone] Omayra Bernal NP [address] [place], [place] [phone] Social History Tobacco Use Types Packs/Day Years [...] the past 12 months, has t he [employer], [employer], oil or water company threatened to shut [...] or More Supply: Yes Pharmacy: [id number] - [place], [place] - [address] [facility] [address] [facility] [phone] documented in this encounter Plan of Treatment Not on file documented as of this encounter Visit Diagnoses Not on filedocumented in this encounter Additional Health Concerns Assessment Noted Time PHQ-9 Depression Total Score: 22 025 4:32 PM EST documented as of this encounter Care Teams Tape Rules Printing Machine Operator Relationship Specialty Start Date End Date Omayra Bernal NP [address] [place] [address] PCP - General Family Medicine 06/28/23 documented as of this encounter
--- OUTSIDE RECORDS SUMMARY | 2025-01-05 08:40 | XMS_ITS | Encounter Summary ---
Author Organization [employer] Address [address] [place] [address] 7 [place] [address] Care Team Providers Care Control Clerk Auditing Name Role Phone Annie Coto Unavailable Kristan Ayers Unavailable [phone] Armen Kristan Unavailable [phone] Omayra Bernal HEALTH CLUB MANAGER Primary Care Provider Reason for Referral * Consultation (Routine) - Authorized Specialty Diagnoses / Procedures Referred By Shaye acosta Referred To Contact Physical Therapy Diagnoses Stress incontinence of urine Omayra Bernal NP [address] [place] [address] Phone: tel: fax: [facility]) [place] [address] Phone: tel: fax: Referral ID Status Reason Start Date Expiration Date Visits Requested Visits Authorized [id number] Authorized Specialty Services Required 02/23/2024 02/22/2025 20 20 Encounter Details Date Type Department Care Team (Late st Contact Info) Description 02/21/2024 Telephone [facility] [address] [place] [phone] Omayra Bernal NP [address] [place] [address] Social History Tobacco Use Types Packs/Day Years [...] documented as of this encounter Care Teams Control Clerk Auditing Relationship Specialty Start Date End Date Omayra Bernal NP [address] [place] [address] PCP - General Family Medicine 06/28/23 Annie Coto [address] [place] [address] 03/30/23 03/28/24 Kristan Ayers [address] [place] [address] 04/23/23 05/16/24 [place] [address] [place] [address] 06/10/23 05/16/24 documented as of this encounter
--- OUTSIDE RECORDS SUMMARY | 2025-01-05 08:40 | XMS_ITS | Encounter Summary ---
Author Organization [employer] Address [address] [place] [address] Care Team Providers Care Vp Global Marketing Solutions Name Role Phone Angelita Allred Primary Care Provider Unavailab panda Coto Annie Unavailable Kristan Ayers Unavailable [phone] Kristan Ayers Unavailable [phone] Omayra Bernal NP Primary Care Provider [phone] Encounter Details Date Type Department Care Team (Late st Contact Info) Description 06/08/2023 Abstract [facility] [address] [place] [phone] Angelita Allred FNP Social History Tobacco Use [...] on filedocumented in this encounter Care Teams Vp [employer] Solutions Relationship Specialty Start Date End Date Angelita Allred FNP PCP - General Family Medicine 08/25/22 06/27/23 Omayra Bernal NP [address] [place] [address] PCP - General Family Medicine 06/28/23 Annie Coto [address] [place] [address] 03/30/23 03/28/[address] [address] 04/23/23 05/16/[address] [address] 06/10/23 05/16/24 documented as of this encounter
--- OUTSIDE RECORDS SUMMARY | 2025-01-05 08:40 | XMS_ITS | Encounter Summary ---
Author Organization [employer] Address [address] [place] [address] Care Team Providers Care Color Print Inspector Name Role Phone Angelita Allred Primary Care Provider Unavailab panda Annie Coto Unavailable AyersKristan Unavailable [phone] AyersKristan Unavailable [phone] Omayra Bernal NP Primary Care Provider [phone] Encounter Details Date Type Department Care Team (Late st Contact Info) Description 03/18/[address] [phone] Angelita Allred FNP Social History Tobacco Use [...] 03/18/2023 2:51 PM EDT [facility] Nurse Triage Please inform patient that their imaging is normal. * Telephone Encounter - Sweetie Hutton - 03/18/2023 2:50 PM EDT Script sent today documented in this encounter Plan of Treatment Not on file documented as of this encounter Visit Diagnoses Not on filedocumented in this encounter Care Teams Color Print Inspector Relationship Specialty Start Date End Date Angelita Allred FNP PCP - General Family Medicine 08/25/22 06/27/23 Omayra Bernal NP [address] [place] [address] PCP - General Family Medicine 06/28/23 Annie Coto [address] [place] [address] 03/30/23 03/28/[address] [address] 04/23/23 05/16/[address] [address] 06/10/23 05/16/24 documented as of this encounter
--- OUTSIDE RECORDS SUMMARY | 2025-01-05 08:40 | XMS_ITS | Data Portability ---
Author Organization [facility] [employer] Address [address] [place] [address] [place] [phone] Care Team Providers Care Tile Edger Name Role Phone EDA CENTENO Referring Provider [...] of your hand and foot numbness: At [facility] MRI facility: MRI cervical spine without contrast At [facility] laboratory: LABORATORIES: B12 studies, vitamin E, copper, [...] dry mouth. Alternatively, Biotene, once every morning, ngfm-qbb-uwdhvgi liquid may also help dry mouth) Follow-up [...] 15, 2021, per dictation Loraine Kan neuroradiology [facility]: Cervical cord is normal and no significant [...] dry mouth. Alternatively, Biotene, once every morning, aora-cqi-rybdieq liquid may also help dry mouth) WALKING [...] see your psychiatric healthcare provider, Vidal at [facility], to see if they can change [...] of increasing amitriptyline Norman Mac MD, PhD [facility] Follow-up afterwards keith Not available 10/13/2021 [...] has been unrevealing. --Depression[facility], seeming worse today with teariness. GAIT, [...] dry mouth. Alternatively, Biotene, once every morning, jsge-evz-kcczbhg liquid may also help dry mouth) WALKING [...] falls including some not using the walker [facility] [address] [place] [address] A referral has been sent to this physical therapy office. However, you have to make an initial phone call, to the number below, to set up the initial appointment. DEPRESSION You feel that you will always be depressed. You talk to your psychiatric healthcare provider, Vidal at [facility], once a month, please ask her for a change in medication for your depression and to help with your outlook on life. Follow-up after EMG & nerve conduction studies Norman Mac MD, PhD [facility] keith Not available 02/24/2022 10:54:54 Plan [...] clonus and marked Speedy signs bilaterally 2020 [facility] ([facility] [address] [place] [address], [address], 14:17:11 Medication Orders amitriptyli ne 25 mg tablet 2021 [id number], [address] [place], [place], [phone], 10:27:47 amitriptyli ne 10 mg tablet 2021 022 [facility] #[id number], [address] [place], [place], [phone], 12:45:31 Patient TargetsNo targets recorded. Patient Instructions [...] e mauricio cteri stics deter mined by [facility]. It has not been clear ed or appro nely by the Food and Drug Admin istra tion. Detec tion Limit EQ 5 Test perfo rmed at [facility] , [address] [place] [address] Not Available [facility] (Centralized Electronic Ordering - All Locations) Patient Can Go To The Location Of Their Choice, 09/17/2021 05:05:48 09/15/1909/18/2021 METHY LMALO DONY ACID, SERUM methylmaloni c acid, serum 141 Refer ence range : 0 to 378 Unit: nmol/ L (NOTE ) This test was devel oped and its perfo rmanc e mauricio cteri stics deter mined by [facility]. It has not been clear ed or appro nely by the Food and Drug Admin istra tion. Test perfo rmed at [facility] , [address] [place] [address] Not Available [facility] (Centralized Electronic Ordering - [...] Go To The Location Of Their Choice, [id number] 2021 11:05:59 09/15/19 22 2021 VITAM IN [...] ient. Test perfo rmed at [facility] , [address] [place] [address] , [place] [address] Not Available [facility] (Centralized Electronic Ordering - All Locations) Patient Can Go To The Location Of Their Choice, [id number] 2021 11:05:59 09/15/19 22 09/15/2021 MRI, cervi trinity spine , w/o contr ast [facility] Access ion Number : [id number] t Name: Ella Baker [employer] gregory Record Number : [id number] Date of : 1965 Date of Exam: 2021 Referr ing Physic cat: Tamy Mac MD Neurol [facility] [address] [facility] [address] [place] [address] Exam: MR Cervic al Spine (C-) CPT 27187 Room Descri ption: Luther Siem Espr 1.5 [...] and C5-C6 levels . The visual ized ndt inspector ior fossa struct ures are normal . The cervic al spinal cord is normal in calibe r and signal . The parasp inal and prever tebral soft tissue s are unrema rkable . The major vascul ar flow voids are preser nely. At C2-C3, there is no spinal canal or neural forami nal stenos is. At C3-C4, there is a ndt inspector ior disc osteop hyte comple x and [...] ly Signed By: Loraine heaton MD [email or web address] [facility] ([facility]) [address] [place], [address], 09/22/2021 11:04:41 09/15/19 22 09/15/2021 MRI, cervi trinity spine , w/o contr ast No observ ation record ed. [address] (Mri) [address] [place], [address], 09/22/2021 11:06:02 Result Notes None recorded. Procedures Surgical History Date Name Laterality Status Provider Name and Address Organization Details Recorded Time 02/24/2022 DATA REVIEW completed Norman Mac MD [address] [place] [address] DEIRDRE Alanis, [phone], [facility] [employer] 02/24/2022 10:22:36 10/13/2021 DATA REVIEW completed Norman Mac MD [address] [place] [address] DEIRDRE Alanis, [phone], [facility] [employer] 10/13/2021 12:32:33 09/01/2021 DATA REVIEW completed Norman Mac MD [address] [place] [address] DEIRDRE Alanis, [phone], [facility] [employer] [facility] 09/01/2021 13:28:06 Imaging Results Imaging Date Name Status LastModified by Organiz ation Details LastModified Time 09/15/2021 MRI, cervical spine, w/o contrast completed [address] [facility] ([facility]) [address] [place], [address], 09/22/2021 11:04:41 09/15/2021 MRI, cervical spine, w/o contrast completed [address] ([facility]) [address] [place], [address], 09/22/2021 11:06:02 Procedure Notes None recorded. Medical [...] 09/01/2021 152.4 cm 12 /min 26.4 kg/m2 58715.97 g Bettye Mcclelland [facility] 09/01/2021 13:55:19 Social History Question Answer Notes LastModified by Organizat ion Details LastModified Time Tobacco Smoking Status Current Every Day Smoker Bettye chapman [facility] [place] [facility] 09/01/2021 14:03:49 What Is Your Level Of Alcohol Consumption? None Information not available 09/01/2021 What Is Your Level Of Caffeine Consumption? Heavy 3 Cups Per Day Information not available 09/01/2021 What Is The Highest Grade Or Level Of School You Have Completed Or The Highest Degree You Have Received? [id number] Information not available 09/01/2021 What Is Your [...] available 2020 13:56:49 Medical History Condition Response Claustrophobia Y Head Trauma/Injury N Hospitalizations N High Blood Pressure or Hypertension N Thyroid Problems N Depression Y Brain Tumors N Lung Disease N COPD or emphysema Y Encephalitis N PTSD N Vitamin B12 deficiency N Heart Attack ([place]) N Spine Problems N Obstructive Sleep Apnea N Alcoholism N Diabetes N Autoimmune disease N Bleeding Disorder N Arthritis N Cerebral Palsy N Tuberculosis N Developmental Problems N Neck Problems N Cancer N Back Problems N Stroke N Asthma Y Heartburn, acid reflux, GERD N Vitamin D Deficiency N Epilepsy/Seizures N Bipolar Disorder Y Sleep Disorder N Aneurysm N Hepatitis N Liver Disease N Heart Disease N Fibromyalgia N Headaches Y High Cholesterol or Hyperlipidemia Y Osteoporosis N Kidney Disease N Gynecological HistoryNo gynecological history recorded. Obstetrics History GPAL:G 0 P 0 0 0 0 Past Encounters Encounter ID Performer Location Encounter Start Date Encounter Closed Date Diagnosis/Indication Diagnosis SNOMED-CT Code Diagnosis ICD10 Code Diagnosis Note [id number] Norman Mac MD [facility] [address] [place] [address] [place] [address] 09/01/2021 12:57:15 09/01/2021 17:19:46 Cervical disc prolapse with myelopathy 265145279 M50.01 Idiopathic peripheral neuropathy 97517218 G60.3 Abnormal gait 81507175 R 26.81 [id number] Norman Mac MD [facility] [address] [place] [address] [place] [address] 10/13/2021 12:21:44 10/13/2021 16:56:21 Cervical disc prolapse with myelopathy 408854084 M50.01 Idiopathic peripheral neuropathy 53371992 G60.3 Abnormal gait 46220106 R 26.81 Migraine without aura 56 894902 G43.009 [id number] Norman Mac MD [facility] [address] [place] [address] [place] [address] 02/24/2022 09:50:08 02/24/2022 11:15:30 Cervical disc prolapse with myelopathy 274891257 M50.01 Idiopathic peripheral neuropathy 91418193 G60.3 Abnormal gait 43920405 R 26.81 Migraine without aura 56 282460 G43.009 Health Concerns Section Related Observation LastModified by Organization Detai ls LastModified Time None Recorded Concern Status LastModified by Organization Details LastModified Time None Recorded Advance Directives Directive None Recorded Payers Encounter Date Sequence Insurance Name Policy Number Policy Brown Covered Member ID Brown Member ID Guarantor Name 09/01/2021 1 [place] [place]ICAID[place] Ella Mo [id number] Ella Mo 10/13/2021 1 [place] Ella Mo [id number] Ella Mo 02/24/2022 1 [place]ID[place] Ella Mo [id number] Ella Mo Notes Date Note Type Note [...] least, during which her has , her daesxt-pe-zrz has and her pets have . She argues with her daughter a lot and her daughter criticizes her a lot, especially when she forgets things. She is depressed. She is on Paxil. Norman Mac MD [address] [place] [address] [place], [phone], [facility] 09/02/2021 19:42:49 10/13/2021 text/html Follow-up of [...] least, during which her has , her kpibif-nn-vef has and her pets have . She argues with her daughter a lot and her daughter criticizes her a lot, especially when she forgets things. She is depressed. She is on Paxil. Norman Mac MD [address] [place] [address], [phone], [facility] 10/13/2021 13:13:00 02/24/2022 text/html Follow-up of [...] least, during which her has , her avjfha-ed-mzj has and her pets have . She argues with her daughter a lot and her daughter criticizes her a lot, especially when she forgets things. She is depressed. She is on Paxil. Norman Mac MD [address] [place] [address] [place], [phone], [facility] 02/24/2022 10:55:17 OBGyn Episode No OBEpisode recorded.
--- OUTSIDE RECORDS SUMMARY | 2025-01-05 08:40 | XMS_ITS | Data Portability ---
Author Organization [facility], [facility] Address [address] [place] [address] Care Team Providers Care Supervisor Transcribing Operators Name Role Phone CARLIN THEODORE OTHER Assessment [...] None recorded. Lab lipid panel 2011 012 [facility], [address] [place], [address], 3 03:04:42 Pap liquid based, reflex HPV, ascu 2011 012 [facility], [address] [place] [address], [address], 3 03:04:44 vitamin D,25-hydrox y 2011 012 [facility], [address] [place] [address], [address], 3 03:03:30 comprehensi ve metabolic panel 2011 012 [facility], [address] [place] [address], [address], 3 03:03:30 thyroid stimulating hormone (TSH) 2011 012 [facility], [address] [place] [address], [address], 3 03:03:30 CBC 2011 012 [facility], [address] [place] [address], [address], 3 03:03:30 Referral None recorded. Procedures None recorded. Surgeries None recorded. Imaging mammogram, screening - routine 2011 012 [facility], [address] [place] [address], [address], 3 03:04:42 ultrasound, pelvic transabdomi nal & transvagina l - worsening dyspareunia - pt questions obstruction 2011 012 [facility], [address] [place] [address], [address], 3 03:02:19 Medication Orders nicotine 21 mg/24 hr daily transdermal patch 2011 012 [facility], [address] [place], [address], 3 03:05:47 nicotine (polacrilex ) 2 mg buccal lozenge 2011 012 [facility] [address] [place], [address], 3 03:03:35 DuoNeb 0.5 mg-3 mg(2.5 mg base)/3 mL solution for nebulizatio n 2011 012 [facility], [address] [place], [address], 3 03:04:50 Flovent HFA 220 mcg/actuati on aerosol inhaler 2011 012 [facility], [address] [place] [address], [address], 3 03:03:35 Accolate 20 mg tablet 2011 012 [facility], [address] [place] [address], [address], 3 03:03:35 ProAir HFA 90 mcg/actuati on aerosol inhaler 2011 012 [facility] [address] [place] [address], [address], 3 03:03:35 amoxicillin -potassium clavulanate 1,000 mg-62.5 mg tablet,ext. rel 12hr 2010 011 [facility] #71787, [address], [place], [phone], 3 05:39:26 Zithromax Z-Gerardo 250 mg tablet 2010 011 [facility] #75227, [address], [place], [id number], 3 05:39:26 Culturelle 10 billion cell capsule [address] [facility], [address], [place], [phone], 3 05:39:26 prednisone 10 mg tablet 2010 011 [facility]46472, [address], [place], [phone], 3 05:36:51 Patient TargetsNo targets recorded. Patient Instructions Encounter Date Encounter Id Patient Instructions Last Modified By Organization Details Last Modified Time 08/20/2011 [id number] Quitting Tobacco : Care Instructions ANGELINE Not available 04/07/2013 05:34:08 Discussed smokin g cessation with patient , Patient is {{ready to quit and has adopted plan contemplatin g quitting but not ready* not interested in stopping at this time}} Not available 08/20/2011 16:26:50 12/24/2011 [id number] Quitting Tobacco : Care Instructions ANGELINE Not [...] this time}} Not available 12/28/2011 23:34:17 05/22/2015 [id number] Rx given for glasses Cataracts discussed anayelierlin Not available 05/22/2015 10:56:16 Reason for Referral None Reported. Results Created Date Observation Date Name Description Value Unit Range Abnormal Flag Note LastModifiedBy Organization Detail LastModifiedTime 12/24/19 12 12/24/2011 CBC WBC 5.8 K/?L 4.0-10 .0 Not Available [facility] [address] [place], [address], 12/24/2011 11:28:36 12/24/19 12 12/24/2011 CBC RBC 4.82 M/?L 3.93-5 .22 Not Available [address], [address], 12/24/2011 11:28:36 12/24/19 12 12/24/2011 CBC HGB 15.1 g/dL 11.2-1 5.7 Not Available [address], [address], 12/24/2011 11:28:36 12/24/19 12 12/24/2011 CBC HCT 42.2 % 34.1-4 4.9 Not Available [address], [address], 12/24/2011 11:28:36 12/24/19 12 12/24/2011 CBC MCV 87.6 ?L 79.4-9 4.8 Not Available [address], [address], 12/24/2011 11:28:36 12/24/19 12 12/24/2011 CBC MCH 31.3 pg 25.6-3 2.2 Not Available [address], [address], 12/24/2011 11:28:36 12/24/19 12 12/24/2011 CBC MCHC 35.8 g/dL 32.2-3 5.5 high Not Available [address], [address], 12/24/2011 11:28:36 12/24/19 12 12/24/2011 CBC plt 314.0 K/?L 182.0- 369.0 Not Available [address], [address], 12/24/2011 11:28:36 12/24/19 12 12/24/2011 CBC MPV 11.2 9.4-12 .3 Not Available [address], [address], 12/24/2011 11:28:36 12/24/19 12 12/24/2011 CBC neut% 59.4 % 34.0-7 1.1 Not Available [address], [address], 12/24/2011 11:28:36 12/24/19 12 12/24/2011 CBC neut# 3.4 1.6-6. 1 Not Available [address], [address], 12/24/2011 11:28:36 12/24/19 12 12/24/2011 CBC lymph % 29.7 % 19.3-5 1.7 Not Available [address], [address], 12/24/2011 11:28:36 12/24/19 12 12/24/2011 CBC lymph # 1.7 K/?L 1.2-3. 7 Not Available [address], [address], 12/24/2011 11:28:36 12/24/19 12 12/24/2011 CBC mono% 7.6 % 4.7-12 .5 Not Available [address], [address], 12/24/2011 11:28:36 12/24/19 12 12/24/2011 CBC mono# 0.4 0.2-0. 4 high Not Available [address], [address], 12/24/2011 11:28:36 12/24/1912/24/2011 CBC eo% 2.8 % 0.7-5. 8 Not Available [address], [address], 12/24/2011 11:28:36 12/24/19 12 12/24/2011 CBC eo# 0.2 0.0-0. 4 Not Available [address], [address], 12/24/2011 11:28:36 12/24/19 12 12/24/2011 CBC baso% 0.5 % 0.1-1. 2 Not Available [address], [address], 12/24/2011 11:28:36 12/24/19 12 12/24/2011 CBC baso# 0.0 0.0-0. 1 low Not Available [address], [address], 12/24/2011 11:28:36 12/24/19 12 12/24/2011 CBC RDW-CV 12.7 % 11.7-1 4.4 Not Available [address], [address], 12/24/2011 11:28:36 12/24/19 12 12/24/2011 lipid panel cholesterol 177 mg/dL <200 mg/dL jeff able 200-2 39 mg/dL borde rline high >240 mg/dL high Not Available [address], [address], 12/24/2011 12:14:01 12/24/19 12 12/24/2011 lipid panel triglyceride s 89 mg/dL <200 <150 mg/dL maria fernanda l 150-1 99 mg/dL borde rline high 200-4 99 mg/dL high >500 mg/dL very high Not Available [address], [address], 12/24/2011 12:14:01 12/24/19 12 12/24/2011 lipid panel direct HDL 46 mg/dL Not Available [address], [address], 12/24/2011 12:14:01 12/24/19 12 12/24/2011 lipid panel [...] r IS not anetamariana barbosa. Not Available [address], [address], 12/24/2011 12:14:01 12/24/19 12 12/24/2011 compr ehens shantel metab olic panel glucose 80 mg/dL 70-100 Not Available [address], [address], 12/24/2011 12:14:02 12/24/19 12 12/24/2011 compr ehens shantel metab olic panel BUN 4 mg/dL 7-18 low Not Available [address], [address], 12/24/2011 12:14:02 12/24/19 12 12/24/2011 compr ehens shantel metab olic panel creatinine 0.7 mg/dL 0.8-1. 3 low Not Available [address], [address], 12/24/2011 12:14:02 12/24/19 12 12/24/2011 compr ehens shantel metab olic panel B/C 5.7 ratio Not Available [address], [address], 12/24/2011 12:14:02 12/24/19 12 12/24/2011 compr ehens shantel metab olic panel GFR 100.9 mL/mi n recom davian d GFR by the connie tapia y found ation >60 mL/mi n/1.7 3m2 - maria fernanda l <60 mL/mi n/1.7 3m2 - chron ic kidne y disea se <15 mL/mi n/1.7 3m2 - kidne y failu re Not Available [address], [address], 12/24/2011 12:14:02 12/24/19 12 12/24/2011 compr ehens shantel metab olic panel GFR - if 116.0 mL/mi n for afric an ameri can patie nts: resul ts multi plied by 1.21 Not Available [address], [address], 12/24/2011 12:14:02 12/24/19 12 12/24/2011 compr ehens shantel metab olic panel sodium 137 mmol/ L 136-14 5 Not Available [address], [address], 12/24/2011 12:14:02 12/24/19 12 12/24/2011 compr ehens shantel metab olic panel potassium 4.4 mmol/ L 3.5-5. 1 Not Available [address], [address], 12/24/2011 12:14:02 12/24/19 12 12/24/2011 compr ehens shantel metab olic panel chloride 96 mmol/ L 96-107 Not Available [address], [address], 12/24/2011 12:14:02 12/24/19 12 12/24/2011 compr ehens shantel metab olic panel _anion gap 14.0 Not Available [address], [address], 12/24/2011 12:14:02 12/24/19 12 12/24/2011 compr ehens shantel metab olic panel CO2 27 mmol/ L 21-32 Not Available [address], [address], 12/24/2011 12:14:02 12/24/19 12 12/24/2011 compr ehens shantel metab olic panel calcium 9.6 mg/dL 8.5-10 .3 Not Available [address], [address], 12/24/2011 12:14:02 12/24/19 12 12/24/2011 compr ehens shatnel metab olic panel total protein 7.5 g/dL 6.4-8. 2 Not Available [address], [address], 12/24/2011 12:14:02 12/24/19 12 12/24/2011 compr ehens shantel metab olic panel albumin 4.3 g/dL 3.4-5. 0 Not Available [address], [address], 12/24/2011 12:14:02 12/24/19 12 12/24/2011 compr ehens shantel metab olic panel globulin 3.2 g/dL Not Available [address], [address], 12/24/2011 12:14:02 12/24/19 12 12/24/2011 compr ehens shantel metab olic panel A/G 1.3 ratio 0.8-2. 0 Not Available [address], [address], 12/24/2011 12:14:02 12/24/19 12 12/24/2011 compr ehens shantel metab olic panel total bilirubin 0.40 mg/dL 0.00-1 .00 Not Available [address], [address], 12/24/2011 12:14:02 12/24/19 12 12/24/2011 compr ehens shantel metab olic panel AST 27 U/L 15-37 Not Available [address], [address], 12/24/2011 12:14:02 12/24/19 12 12/24/2011 compr ehens shantel metab olic panel ALT 35 U/L 30-65 Not Available [address], [address], 12/24/2011 12:14:02 12/24/19 12 12/24/2011 compr ehens shantel metab olic panel alk. phos. 81 U/L 50-136 Not Available [address], [address], 12/24/2011 12:14:02 12/24/19 12 12/24/2011 thyro id stimu latin g hormo ne (TSH) TSH 0.66 uIU/m L 0.50-6 .00 the ameri can colle ge of endoc rinol ogy and ameri can thyro id assoc iatio n recom mend goal TSH value s betwe en 1.0-2 .5 mIU/m L. Not Available [address], [address], 12/24/2011 12:24:15 12/24/19 12 12/25/2011 T3 free T3, free 3.2 pg/mL 2.3-4. 2 normal Not Available [facility] [address] [place] [address], [address], 12/25/2011 06:01:00 12/24/19 12 12/25/2011 T4 free free T4 1.19 NG/dL 0.75-1 .54 Not Available [address], [address], 12/25/2011 09:10:22 12/24/19 12 12/28/2011 vitam in [...] er than 30 NG/mL . Not Available [address], [address], 12/28/2011 15:28:15 12/24/19 12 12/30/2011 vitam in B12 vitamin B12 557 pg/mL 230-10 50 Not Available [address], [address], 12/30/2011 09:51:41 12/24/19 12 12/30/2011 folat e folate 18 NG/mL 3-16 high Not Available [address], [address], 12/30/2011 11:51:41 10/22/19 12 10/16/2011 pulmo nary funct ion test* No observ ation record ed. [facility] [address] [place], [address], 04/07/2013 05:52:43 12/25/19 12 12/25/2011 ultra sound , pelvi c trans abdom inal & trans vagin al No observ ation record ed. [address], [address], 04/08/2013 03:01:05 01/22/20 12 01/21/2012 mammo gram, scree pradeep No observ ation record ed. [address], [address], 04/08/2013 03:08:43 05/02/20 23 04/30/2023 XR, knee, [...] Massiel herrera Physic cat: Randal France ms [facility] ([facility]) [address] , [place], [address], 05/04/2023 08:58:54 Result Notes None recorded. Problems Name Problem SNOMED Code Status Onset Date Resolution Date Notes Provider Name and Address Organization Details Recorded Time Nuclear sclerotic cataract 173391724 Active Arnel Grantsburg, OD [address] [place] [address], [place], [address] , [facility] 5 10:56:16 Mixed hyperlipid emia 264636689 Active 2006 Not Available [facility] 3 03:12:31 Ocular hypertensi on 3822226 Completed 200507/27/2010 Not Available [facility] 3 03:12:31 Cellulitis and abscess of hand excluding digits Completed 200707/27/2010 Not Available [facility] 3 03:12:31 Gingival and periodonta l disease Active Not Available [facility] 3 03:12:31 Chronic bronchitis 67629522 Completed 200507/27/2010 Not Available [facility] 3 03:12:31 Osteoarthr itis of knee 800066366 Completed 200607/27/2010 Not Available [facility] 3 03:12:31 Open angle with borderline findings Active 2007 Not Available [facility] 3 03:12:31 Neck pain 53377937 Completed 200608/02/2013 Not Available [facility] 3 02:00:36 Influenza 8376340 Completed 07/27/2010 Not Available [facility] 3 03:34:33 Closed fracture of forearm 49214166 Completed 200507/27/2010 Not Available [facility] 3 03:12:31 Osteoarthr itis 818762861 Active 2008 Not Available [facility] 3 03:12:31 Localized, primary osteoarthr itis 504759617 Completed 200607/27/2010 Not Available [facility] 3 03:12:31 Major depression , melancholi c type 197601956 Active 2008 Not Available [facility] 3 03:12:31 Chronic gingivitis 33095164 Completed 200607/27/2010 Not Available [facility] 3 03:12:31 Pain in throat 654103895 Completed 07/27/2010 Not Available [facility] 3 03:12:31 Pneumonia 124082415 Completed 200507/27/2010 Not Available [facility] 3 03:12:31 Posterior subcapsula r polar senile cataract 6103939 Active 2005 Not Available [facility] 3 03:12:31 Knee pain Completed 200607/27/2010 Not Available [facility] 3 03:12:31 Joint pain 56510721 Completed 200807/27/2010 Not Available [facility] 3 03:12:31 Candidiasi s 37722370 Completed 200807/27/2010 Not Available [facility] 3 03:12:31 Acute maxillary sinusitis 93737928 Completed 200407/27/2010 Not Available [facility] 3 03:12:31 Periapical abscess with sinus tract 25217129 Completed 07/27/2010 Not Available [facility] 3 03:12:31 Disorder of jaw 96056867 Completed 200707/27/2010 Not Available [facility] 3 03:12:31 Hereditary retinal dystrophy 34097873 Completed 200507/27/2010 Not Available [facility] 3 03:12:31 Degenerati ve joint disease involving multiple joints 970137558 Completed 200607/27/2010 Not Available [facility] 3 03:12:31 Acute bronchitis 37001111 Completed 200407/27/2010 Not Available [facility] 3 03:12:31 Malaise and fatigue 609669394 Completed 200607/27/2010 Not Available [facility] 3 03:12:31 Cough 09264823 Completed 200407/27/2010 Not Available [facility] 3 03:12:31 Extrinsic asthma with asthma attack Active Not Available [facility] 3 03:34:33 Extrinsic asthma with asthma attack Completed 200407/27/2010 Not Available [facility] 3 03:12:31 Fever 071325541 Completed 200507/27/2010 Not Available [facility] 3 03:12:31 Chronic obstructiv e pulmonary disease 26047225 Active 2006 [facility] 3 03:12:31 Myopia 01093490 Active 2005 Arnel Steve, [address], [place], [address] , [facility] 5 10:56:16 Intrinsic asthma 657744996 Active Not Available [facility] 3 03:34:33 Tobacco user 846881388 Active 2004 Not Available [facility] 3 03:12:31 Acute apical periodonti tis of pulpal origin 71765912 Completed 200807/27/2010 Not Available [facility] 3 03:12:31 Allergic asthma without status asthmaticu s 00937280 Active 2004 [facility] Available [facility] 3 03:12:31 Acute sinusitis 04801058 Completed 07/27/2010 Not Available [facility] 3 03:12:31 Joint pain in ankle and foot Completed 200608/02/2013 Not Available [facility] 3 02:01:26 Emphysemat ous bronchitis 545835848 Completed 200607/27/2010 Not Available [facility] 3 03:12:31 Disorder of teeth AND/OR supporting structures 483786156 Completed 200507/27/2010 Not Available [facility] 3 03:12:31 Acute upper respirator y infection 54682527 Completed 07/27/2010 [facility] Available [facility] 3 03:34:33 Periapical abscess without sinus tract Completed 200507/27/2010 Not Available [facility] 3 03:12:31 Common cold 93663687 Completed 07/27/2010 Not Available [facility] 3 03:12:31 Panic disorder without agoraphobi a 17267400 Completed 200407/27/2010 Not Available [facility] 3 03:12:31 Opioid dependence 96769166 Active 2007 Not Available [facility] 3 03:12:31 Current knee cartilage tear Completed 200407/27/2010 Not Available [facility] 3 03:12:31 Asthma 964876827 Active 2008 Not Available [facility] 3 03:12:31 Visual field defect 87127548 Active 2007 Not Available [facility] 3 03:12:31 Problem Notes None recorded. Procedures Surgical History Date Name Laterality Status Provider Name and Address Organization Details Recorded Time 05/22/20 15 Refraction completed Nayely Foreman MA [facility] 05/22/2015 09:58:16 12/24/19 12 Smoking cessation counseling completed Anayeli Rodriguez [facility] 12/24/2011 09:12:02 12/24/19 12 Asthma Control Test (12 + years old) completed Anayeli Rodriguez [facility] 12/24/2011 09:12:02 08/20/20 11 Smoking cessation counseling completed Anayeli Rodriguez [facility] 08/20/2011 16:05:01 09/13/19 10 Tubal Ligation completed Oneyda Prado NP [address] [place] [address], [address], [facility] 12/24/2011 09:48:33 07/10/20 09 Nebulizer Tx completed Naeem Lechuga NP [address] [place] [address], [address], [facility] 07/10/2009 17:30:24 09/13/19 00 completed Oneyda Prado NP [address] [place] [address], [address], [facility] 12/24/2011 09:48:33 09/13/18 91 completed Oneyda Prado NP [address] [place], [address], [facility] 12/24/2011 09:48:33 09/13/18 85 completed Oneyda Prado NP [address] [place], [address], [facility] 12/24/2011 09:48:33 Cholecystectomy completed Oneyda Prado NP [address] [place] [address], [address], [facility] 12/24/2011 09:48:33 Imaging Results Imaging Date Name Status LastModified by Organization Details LastModified Time 10/16/2011 pulmonary function test* completed [facility] [address] [place], [address], 04/07/2013 05:52:43 12/25/2011 ultrasound, pelvic transabdominal & transvaginal completed [address], [address], 04/08/2013 03:01:05 01/21/2012 mammogram, screening completed [address], [address], 04/08/2013 03:08:43 04/30/2023 XR, knee, weightbearing completed [facility] [address], [place], [address], 05/04/2023 08:58:54 Procedure Notes None recorded. Medical Equipment None Reported. Allergies Allergen ID Allergen Name Allergen Category Reaction Reaction Severity Criticality Documentation Date Start Date Code Code System Note Provider Name and Address Organization Details Recorded Time 25772 codeine medicatio n nausea vomiting Not available Not available Not available 02/07/2009 2670 RxNorm DID NOT take with food per PI=ok ay now per patie nt took cough syrup w/cod eine & was ok-LB artak ,rma [facility] Available [facility] 1 06:05:20 [address] doxycycli ne Not available other severe Not available 03/29/2009 3640 RxNorm high fever and thrus h Not Available [facility] 1 06:05:20 [address] Chantix medicatio n vomiting Not available Not available 12/24/2011 14842 0 RxNorm stick to stoma ch Anayeli FLORES Rodriguez [facility] 2 09:04:21 Medications Name Sig [...] for pain as needed 2008 active [facility] pt Not Available Not Available Not Available [...] Details Last Updated DateTime 1 152.4 cm 12468.1 21239 g 26.3 kg/m2 99.5 [degF] 93 % 93 % 104 mm[Hg] 52 mm[Hg] Anayeli Rodriguez Marcy [facility] 1 16:04:10 Date Recorded Body height Body weight Body mass index (BMI) Heart rate Systolic blood pressure Diastolic blood pressure Provider Name and Address Organization Details Last Updated DateTime 2 152.4 cm 70287.9 12833 g 23.9 kg/m2 68 /min 96 mm[Hg] 60 mm[Hg] Anayeli Rodriguez Marcy [facility] 2 09:03:25 Social History Question Answer Notes LastModified by Organizat ion Details LastModified Time Tobacco Smoking Status Current Every Day Smoker 1PPD (working on quitting; restarted 10/2010) [facility] 11/29/2010 10:20:17 Do You Have An Advance [...] Or With Others? With Others W/ And Smitah. Dog/4 Cats/fish Information not available 12/24/2011 Marital [...] usly record ed as Diabet es [email or web address] [id number] Not available 04/24/2013 03:00:42 Father Myocardial infarction 45 [email or web address] [id number] Not available 04/24/2013 03:00:42 Father Hypertensive disorder previo usly record ed as Hypert ension [email or web address] [id number] Not available 04/24/2013 03:00:42 Medical History Condition [...] influenza, unspecified formulation 5 completed Not Available [facility] 07/29/2011 05:21:29 pneumococcal polysaccharide PPV23 5 completed Not Available [facility] 07/29/2011 05:21:29 Tdap 2 completed Not Available [facility] 09/30/2019 02:15:46 Past Encounters Encounter ID Performer Location Encounter Start Date Encounter Closed Date Diagnosis/Indication Diagnosis SNOMED-CT Code Diagnosis ICD10 Code Diagnosis Note [id number] [facility], OFFICE [address] [place] [address] [place] [address] 09/25/2004 12:51:49 10/03/2008 02:02:29 [id number] NAY [facility]OU[facility]URY, OFFICE [address] [place] [address] [place] [address] 10/29/2004 08:59:45 10/29/2004 11:20:01 [id number] NAY CHOUDHURY, OFFICE [address] [place] [address] [place] [address] 11/10/2004 12:49:00 11/10/2004 16:22:43 [id number] NAY CHOUDHURY, OFFICE [address] [place] [address] [place] [address] 11/14/2004 14:21:19 11/14/2004 17:49:37 [id number] NAY CHOUDHURY, OFFICE [address] [place] [address] [place] [address] 12/29/2004 12:52:04 10/03/2008 02:02:29 [id number] NAY CHOUDHURY, OFFICE [address]ijit castillo, DEIRDRE [id number] 03/27/2005 12:39:28 03/27/2005 14:25:32 [id number] [facility], OFFICE [address] Abhijit castillo, DEIRDRE [address] 05/04/2005 14:53:00 05/04/2005 16:49:28 [id number] [facility], OFFICE [address] Abhijit castillo, DEIRDRE [id number] 08/12/2005 08:17:00 08/12/2005 10:50:21 [id number] [facility], OFFICE [address]hijit castillo, DEIRDRE [address] 10/30/2005 10:43:43 10/30/2005 17:56:01 [id number] [facility], OFFICE [address] Abhijit castillo, DEIRDRE [address] 12/04/2005 08:39:25 12/04/2005 11:41:46 [id number] [facility], [facility] [address] [place] [address] Miracle castillo, DEIRDRE [address] 12/26/2005 00:00:00 10/03/2008 02:02:29 [id number] [facility], OFFICE [address] [facility] Miracle castillo, DEIRDRE [id number] 01/11/2006 10:34:20 01/11/2006 15:12:49 [id number] [facility], OFFICE [address] [facility] Miracle castillo, DEIRDRE [id number] 03/02/2006 14:15:41 10/03/2008 02:02:29 [id number] [facility], OFFICE [address] Abhijit castillo, DEIRDRE [id number] 03/08/2006 07:23:58 03/08/2006 14:44:20 [id number] [facility], [facility] [address] Abhijit castillo, DEIRDRE [id number] 04/19/2006 10:24:01 10/03/2008 02:02:29 [id number] [facility], OFFICE [address] Abhijit castillo, DEIRDRE [id number] 04/28/2006 08:32:39 04/28/2006 11:32:42 [id number] [facility], OFFICE [address] Abhijit castillo, DEIRDRE [id number] 05/21/2006 10:22:13 05/21/2006 15:17:03 [id number] [facility] [facility], OFFICE [address], [place] [id number] 07/10/2006 10:08:59 07/13/2006 06:28:57 [id number] [facility], OFFICE [address], [place] [id number] 1 07/29/2006 15:29:19 07/30/2006 06:25:09 [id number] [facility], OFFICE [address], [place] Moran43275-317 1 08/30/2006 16:42:37 08/31/2006 06:43:47 [id number] [facility], OFFICE [address], [place] Moran51259-755 1 09/02/2006 16:52:36 10/03/2008 02:02:29 [id number] [facility], OFFICE [address], [place] [id number] 1 10/01/2006 10:17:08 10/01/2006 15:56:55 [id number] [facility], OFFICE [address], [place] [id number] 1 10/26/2006 10:50:41 10/26/2006 17:33:00 [id number] [facility], OFFICE [address], [place] [id number] 1 11/08/2006 15:06:05 11/08/2006 15:54:28 [id number] [facility] [address], [place] [id number] 1 11/17/2006 10:40:24 11/17/2006 14:58:30 [id number] [facility], OFFICE [address], [place] [id number] 1 12/21/2006 15:45:03 12/22/2006 06:44:16 [id number] [facility], OFFICE [address], [place] [id number] 1 01/01/2007 12:32:12 01/03/2007 06:28:23 [id number] [facility], OFFICE [address], [place] [id number] 1 02/05/2007 11:22:17 02/08/2007 06:29:10 [id number] [facility], OFFICE [address], [place] [id number] 1 02/10/2007 15:11:55 02/11/2007 14:59:27 [id number] [facility], OFFICE [address], [place] [id number] 1 05/26/2007 13:04:33 05/26/2007 16:57:49 [id number] [facility], OFFICE [address], [place] [id number] 1 06/23/2007 10:59:00 06/23/2007 15:26:02 [id number] [facility], OFFICE [address], [place] [id number] 1 07/13/2007 16:56:52 10/03/2008 02:02:29 [id number] [facility] [address], [place] [id number] 1 07/26/2007 14:51:33 07/27/2007 06:47:41 [id number] [facility] [address], [place] [id number] 1 07/27/2007 08:36:51 07/27/2007 08:37:47 [id number] [facility], OFFICE [address], [place] [id number] 1 07/26/2007 08:28:21 10/03/2008 02:02:29 [id number] [facility], [address] [place] [address] 08/19/2007 00:00:00 10/03/2008 02:02:29 [id number] [facility], OFFICE [address] Ferm[address], [place] [id number] 1 08/30/2007 15:22:32 10/03/2008 02:02:29 [id number] [facility], OFFICE [address], [place] [id number] 1 09/22/2007 13:04:24 10/03/2008 02:02:29 [id number] [facility], OFFICE [address], [place] [id number] 1 02/02/2008 09:37:34 10/03/2008 02:02:29 [id number] [facility] - [facility] [address], [place] [id number] 1 02/03/2008 08:01:39 02/03/2008 08:01:57 [id number] Eye Care, [facility] [id number] 1 03/26/2008 09:41:37 03/27/2008 10:26:02 [id number] Eye Care, [facility] [id number] 1 04/05/2008 09:31:28 04/06/2008 11:55:36 [id number] [facility], OFFICE [address], [place] [id number] 1 05/22/2008 08:19:00 10/03/2008 02:02:29 [id number] [facility], OFFICE [address], [place] [id number] 1 06/18/2008 09:07:10 10/03/2008 02:02:29 [id number] [facility], OFFICE [address], [place] [id number] 1 07/26/2008 11:05:51 10/03/2008 02:02:29 [id number] [facility], OFFICE [address], [place] [id number] 1 12/05/2008 11:07:42 12/06/2008 09:14:52 [id number] [facility], OFFICE [address], [place] [id number] 1 12/26/2008 15:05:22 12/27/2008 10:26:03 [id number] [facility], OFFICE [address], [place] [id number] 1 12/31/2008 17:34:41 01/01/2009 08:17:24 [id number] [facility], OFFICE [address], [place] [id number] 1 01/21/2009 12:39:27 01/22/2009 09:21:24 [id number] [facility], OFFICE [address], [place] [id number] 1 01/28/2009 13:46:14 01/29/2009 08:35:08 [id number] [facility], OFFICE [address], [place] [id number] 1 02/07/2009 08:16:26 02/08/2009 09:44:33 [id number] Radiology , [facility] [address] castillo, [place] [id number] 1 02/07/2009 09:45:23 02/08/2009 14:53:10 [id number] [facility], OFFICE [address], [place] [id number] 1 02/22/2009 17:19:06 02/25/2009 08:59:42 [id number] [facility], OFFICE [address], [place] [id number] 1 03/29/2009 09:07:32 04/01/2009 09:22:53 [id number] [facility], OFFICE [address], [place] [id number] 1 04/19/2009 11:12:01 04/22/2009 10:31:20 [id number] [facility], OFFICE [address], [place] [id number] 1 04/27/2009 10:09:21 04/29/2009 09:36:30 [id number] [facility], OFFICE [address], [place] [id number] 1 07/10/2009 15:58:55 07/11/2009 08:25:40 [id number] Radiology , [facility] [id number] 1 02/07/2009 00:00:00 07/11/2009 02:00:52 [id number] LAB - [facility] [id number] 1 02/07/2009 09:59:30 02/07/2009 09:59:38 [id number] [facility], [address], [place] [id number] 03/09/2009 00:00:00 07/11/2009 02:00:52 [id number] Radiology , [facility] [place] [id number] 1 10/31/2009 15:58:03 11/01/2009 11:18:53 [id number] [facility], OFFICE [address] [place] [id number] 1 07/15/2010 15:48:57 07/16/2010 08:11:32 [id number] [facility], OFFICE [address] [place] [id number] 1 07/17/2010 15:45:27 07/18/2010 08:26:51 [id number] Radiology , [facility] [id number] 1 07/17/2010 16:11:55 07/17/2010 16:32:29 [id number] , [facility], OFFICE [address] [place] [id number] 1 11/29/2010 10:07:42 12/01/2010 07:51:11 [id number] , [facility], OFFICE [address] [place] [id number] 1 08/20/2011 15:52:20 08/21/2011 08:22:49 [id number] , [facility], OFFICE [address] [place] [id number] 1 12/24/2011 08:39:41 12/24/2011 10:22:36 [id number] Radiology , [facility] [id number] 1 12/25/2011 09:10:30 12/28/2011 13:46:59 [id number] Radiology , [facility] [address], [place] [id number] 1 01/21/2012 09:30:59 01/25/2012 09:10:04 [id number] Arnel Steve, OD Eye Care, [facility] [id number] 1 05/22/2015 09:03:41 05/22/2015 10:52:23 Myopia [id number] Nuclear sc lerotic cataract 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 Presbyopia [id number] Health Concerns Section Related Observation LastModified by Organization Detai ls LastModified Time None Recorded Concern Status LastModified by Organization Details LastModified Time None Recorded Advance Directives Directive Y: Low[place] Payers Encounter Date Sequence Insurance Name Policy Number Policy Brown Covered Member ID Brown Member ID Guarantor Name 08/20/2011 1 [facility] - PLAN TYPE 3 (MEDICAID HMO) [id number] Ella Hassan [id number] Ella Hassan 12/24/2011 1 [facility] - PLAN TYPE 3 (MEDICAID HMO) [id number] Ella Hassan [id number] Ella Mo 12/25/2011 1 [facility] - PLAN TYPE 3 (MEDICAID HMO) [id number] Ella Mo [id number] Ella Mo 01/21/2012 1 [facility] - PLAN TYPE 3 (MEDICAID HMO) [id number] Ella Mo [id number] Ella Mo 05/22/2015 1 [facility] (MEDICAID HMO) [id number] Ella Mo [id number] Ella Mo Notes Date Note Type Note Provider Name and Address Organization Details Recorded Time 08/20/2011 text/html Sx as above. Sick x 1 month. Was given Z-gerardo at [facility] in June for pneumonia, felt better for a few days, then started feeling sick again. She's wheezing; uses Duoneb 2x/noc, perhaps 1x/day. Dtr had brain surgery 3 wks ago; she's taking care of 20yo dtr and (w/ brain tumor), also 11yo dtr (healthy). Oneyda Prado, JABIER [address] [place] [address], [place], [address], [facility] 08/20/2011 20:54:21 OBGyn Episode No OBEpisode recorded.
--- OUTSIDE RECORDS SUMMARY | 2025-01-05 08:40 | XMS_ITS | Encounter Summary ---
Author Organization [employer] Address [address] [facility] 7 [place] [address] Care Team Providers Care Dietary Aid Name Role Phone Omayra Bernal NP Primary Care Provider [phone] Encounter Details Date Type Department Care Team (Late st Contact Info) Description 05/31/2024 Telephone [facility] [address] [place] [phone] Omayra Bernal NP [address] [place] [address] Social History Tobacco Use Types Packs/Day Years [...] is your housing situation today? I have imrtha schuler 06/28/[address] you [...] the past 12 months, has t he [employer], gas, oil or water company threatened to [...] help her stop smoking [facility] [place] documented in this encounter Plan of Treatment Not on file documented as of this encounter Visit Diagnoses Not on filedocumented in this encounter Additional Health Concerns Assessment Noted Time PHQ-9 Depression Total Score: 17 023 10:11 AM EST documented as of this encounter Care Teams Dietary Aid Relationship Specialty Start Date End Date Omayra Bernal NP [address] [place] [address] PCP - General Family Medicine 06/28/23 documented as of this encounter
--- OUTSIDE RECORDS SUMMARY | 2025-01-05 08:40 | XMS_ITS | Encounter Summary ---
Author Organization [employer] Address [address] [place] [address] Care Team Providers Care Power And Recovery Supervisor Name Role Phone Angelita Allred Primary Care Provider Unavailab panda Annie Coto Unavailable AyersKristan Unavailable [phone] AyersKristan Unavailable [phone] Omayra Bernal NP Primary Care Provider [phone] Encounter Details Date Type Department Care Team (Late st Contact Info) Description 09/24/2022 Orders Only [facility] [address] [place] [phone] Angelita Allred FNP Social History Tobacco Use [...] on filedocumented in this encounter Care Teams Power And Recovery Supervisor Relationship Specialty Start Date End Date Angelita Allred FNP PCP - General Family Medicine 08/25/22 06/27/23 Omayra Bernal NP [address] [place] [address] [id number] PCP - General Family Medicine 06/28/23 Annie Coto [address] [place] [address] 03/30/23 03/28/[address] [address] 04/23/23 05/16/[address] [address] 06/10/23 05/16/24 documented as of this encounter
--- OUTSIDE RECORDS SUMMARY | 2025-01-05 08:40 | XMS_ITS | Encounter Summary ---
Author Organization [employer] Address [address] [facility] [address] [place] [address] Care Team Providers Care Gin Pole Operator Name Role Phone Annie Coto Unavailable Kristan Ayers Unavailable [phone] Kristan Ayers Unavailable [phone] Omayra Bernal EMERGENCY SERVICES DISPATCHER Primary Care Provider [phone] Encounter Details Date Type Department Care Team (Late st Contact Info) Description 07/01/2023 Abstract [facility] [address] [place] [phone] Omayra Bernal, JABIER [address] [place] [address] Social History Tobacco Use Types Packs/Day Years [...] on filedocumented in this encounter Care Teams Gin Pole Operator Relationship Specialty Start Date End Date Omayra Bernal NP [address] [place] [id number] PCP - General Family Medicine 06/28/23 Annie Coto [address] [place] [address] 03/30/23 03/28/24 Kristan Ayers [address] [place] [address] 04/23/23 05/16/[address] [address] 06/10/23 05/16/24 documented as of this encounter
--- OUTSIDE RECORDS SUMMARY | 2025-01-05 08:40 | XMS_ITS | Clinical Summary ---
Author Organization [employer] Address [address] [facility] [address] [place] [address] Care Team Providers Care Abseiling Instructor Name Role Phone Lida Bernalie JABIER Primary Care Provider [phone] Allergies Active Allergy Reactions Criticality Noted Date [...] days. 5 tablet 024 Active nystatin (Mycostatin) 282344 UNIT/GM powderIndications :Intertrigo Apply topically 2 times [...] the eye. - Urgent referral to an lollypop machine operator for further evaluation. Nicotine withdrawal 06/04/2024 Assessment [...] Will ask team to reach out to [facility] for documentation needed for CPAP Long-term use [...] Patient currently followed by Dr Diaz at [facility] who is requiring 30days completely nicotine free, and while she is trying hard to reduce and quit smoking, her condition is worsening to the point that she is now WC dependent and cannot open her legs wide for personal hygiene. The urgency around her need for hip replacement has increased. -Will place referral to a new orthopedic surgeon at [facility] for a second opinion. - PT1 transport will be arranged for the patient. Assessment & Plan (06/05/2024 9:17 AM EDT): - Patient is preparing for a surgery at [facility]. The exact date is not yet set. [...] Description 12/28/2024 2:00 PM EDT Clinical Support [address] [address] Marie Hutchinson LPN Encounter for long-term (current) use of medications 12/25/[address] [address] Omayra Bernal NP 12/25/[address] [address] Omayra Bernal NP 12/20/[address] [address] Omayra Bernal NP 12/20/[address] [address] Omayra Bernal NP Idiopathic peripheral autonomic neuropathy; Primary osteoarthritis of both hips; Cigarette nicotine dependence without complication 12/20/[address] [address] Omayra Bernal NP Idiopathic peripheral autonomic neuropathy 12/18/[address] [address] Omayra Bernal NP Idiopathic peripheral autonomic neuropathy; Primary osteoarthritis of both hips 12/11/[address] [address] Omayra Bernal NP Mixed simple and mucopurulent chronic bronchitis (CMS/HCC) 11/27/[address] [address] Omayra Bernal NP Cigarette nicotine dependence without complication 11/24/2024 Population Health Risk Score [facility] ([facility]) [address] [address] Provider, Population Health Generic 11/24/[address] [address] Michelle Maynard LPN Idiopathic peripheral autonomic neuropathy; Primary osteoarthritis of both hips 11/22/[address] [address] Omayra Bernal NP Idiopathic peripheral autonomic neuropathy; Primary osteoarthritis of both hips 11/08/[address] [address] Omayra Bernal NP 11/08/[address] [address] Omayra Bernal NP Chronic bronchitis, unspecified chronic bronchitis type (CMS/HCC) 11/07/[address] [address] Omayra Bernal NP Chronic bronchitis, unspecified chronic bronchitis type (CMS/HCC) 11/06/[address] [address] Omayra Bernal NP 11/06/[address] [address] Omayra Bernal NP 10/23/[address] [address] Omayra Bernal NP Idiopathic peripheral autonomic neuropathy; Primary osteoarthritis of both hips 10/20/2024 4:20 PM EST Office Visit [address] [address] Omayra Bernal NP Primary osteoarthritis of both hips (Primary Dx); Screening for depression [Z13.31]; Impaired glucose tolerance; Cigarette nicotine dependence without complication 10/20/[address] [address] Omayra Bernal NP 10/11/[address] [address] Omayra Bernal NP Colon Cancer Screening from Last 3 Months Immunizations Name Administration [...] Procedure Name Priority Date/Time Associated Diagnosis Comments DRUG TOX MONITORING 1, W/CONF, ORAL FLUID Routine 12/28/2024 4:25 PM EDT Encounter for long-term (current) use of medications BI MAMMOGRAM SCREENING TOMOSYNTHESIS BILATERAL Routine 12/20/2023 8:58 AM EDT LIPID PANEL WITH REFLEX TO DIRECT LDL Routine 02/16/2022 3:53 PM EDT HM COLONOSCOPY Routine 08/09/2018 HM HPV ONLY Routine 12/29/2017 HM PAP/HPV Routine 12/29/2017 from Last 3 Months or Most Recently Relevant to Health Maintenance Results * (ABNORMAL) Drug Toxicology Monitoring 1, with Confirmation, Oral Fluid (12/28/2024 4:25 PM EDT) Amphetamines NEGATIVE <10 ng/mL [facility] Comment: See Note 1 See Note 2 Barbiturates NEGATIVE <10 ng/mL [facility] Comment: See Note 1 See Note 2 Benzodiazepines POSITIVE(A) <0.50 ng/mL [facility] Comment:See Note 1 Alprazolam NEGATIVE <0.50 ng/mL [facility] Comment:See Note 1 Chlordiazepoxide NEGATIVE <0.50 ng/mL [facility] Comment:See Note 1 Clonazepam NEGATIVE <0.50 ng/mL [facility] Comment:See Note 1 Aminoclonazepam, Oral Fluid NEGATIVE <0.50 ng/mL [facility] Comment:See Note 1 Diazepam NEGATIVE <0.50 ng/mL [facility] Comment:See Note 1 Flunitrazepam NEGATIVE <0.50 ng/mL [facility] Comment:See Note 1 Flurazepam NEGATIVE <0.50 ng/mL [facility] Comment:See Note 1 Lorazepam 0.62(H) <0.50 ng/mL [facility] Comment:See Note 1 Midazolam NEGATIVE <0.50 ng/mL [facility] Comment:See Note 1 Nordiazepam NEGATIVE <0.50 ng/mL [facility] Comment:See Note 1 Oxazepam NEGATIVE <0.50 ng/mL [facility] Comment:See Note 1 Temazepam NEGATIVE <0.50 ng/mL [facility] Comment:See Note 1 Triazolam NEGATIVE <0.50 ng/mL [facility] Comment: See Note 1 See Note 2 Buprenorphine, Oral Fluid NEGATIVE <0.10 ng/mL [facility] Comment: See Note 1 See Note 2 Cocaine, oral fluid NEGATIVE <5.0 ng/mL [facility] Comment: See Note 1 See Note 2 Fentanyl NEGATIVE <0.10 ng/mL [facility] Comment: See Note 1 See Note 2 Heroin Metabolite NEGATIVE <1.0 ng/mL [facility] Comment: See Note 1 See Note 2 Marijuana, oral fluid POSITIVE(A) <2.5 ng/mL [facility] Comment:See Note 1 THC 2.9(H) <2.5 ng/mL [facility] Comment: See Note 1 See Note 2 MDMA Screen, Oral Fluid NEGATIVE <10 ng/mL [facility] Comment: See Note 1 See Note 2 Meprobamate NEGATIVE <2.5 ng/mL [facility] Comment: See Note 1 See Note 2 Methadone, Oral Fluid POSITIVE(A) <5.0 ng/mL [facility] Comment:See Note 1 EDDP NEGATIVE <5.0 ng/mL [facility] Comment:See Note 1 Methadone 74.7(H) <5.0 ng/mL [facility] Comment: See Note 1 See Note 2 Nicotine Metabolite POSITIVE(A) <5.0 ng/mL [facility] Comment:See Note 1 Cotinine 16.5(H) <5.0 ng/mL [facility] Comment: Cotinine is a metabolite of nicotine. See Note 1 See Note 2 Opiates, oral fluid NEGATIVE <2.5 ng/mL [facility] Comment: See Note 1 See Note 2 Phencyclidine, oral fluid NEGATIVE <10 ng/mL [facility] Comment: See Note 1 See Note 2 Tapentadol NEGATIVE <5.0 ng/mL [facility] Comment: See Note 1 See Note 2 Tramadol, Oral Fluid NEGATIVE <5.0 ng/mL [facility] Comment: See Note 1 See Note 2 Zolpidem NEGATIVE <5.0 ng/mL [facility] Comment: See Note 1 See Note 2 Note 1 This test was developed and its analytical performance characteristics have been determined by [facility]. It has not been cleared or approved by the FDA. This assay has been validated pursuant to the CLIA regulations and is used for clinical purposes. Note 2 For additional information, please refer to: http://education.Bibulu/faq/UUU802 (This link is being provided for informational/ educational purposes only.) This drug testing is for medical treatment only. Analysis was performed as non-forensic testing and these results should be used only by healthcare providers to render diagnosis or treatment, or to monitor progress of medical conditions. For assistance with interpreting these drug results, please contact a [facility] Toxicology Specialist: [phone] ( ), M-F, 8am-6pm EST. Oral Fluid 12/28/2024 4:25 PM EDT 12/28/2024 4:26 PM EDT Omayra Bernal NP LAB BODY FLUIDS AND STOOLS ORDER JENIFFER Final Result [facility] [address] [facility], [place] [address] [facility] [address] [facility], [address] [place] [address] * BI Mammogram Screening Tomosynthesis Bilateral (12/20/2023 [...] Benign. Lay letter mailed to patient. WSN: [id number] Ordering Physician: Omayra Bernal Dictated By: ?Kenny Burgos MD Dictated Date/Time: ?12/20/23 12:01 pm Reviewed By: ?Kenny Burgos MD Signed By: ? Kenny Burgos MD Signed Date/Time: ? 12/20/23 12:01 pm Transcribed By: ? CSB Labor Operator Date/Time: ? 12/20/23 11:51 am Birads: Procedure [...] Benign. Lay letter mailed to patient. WSN: [id number] Ordering Physician: Omayra Bernal Dictated By: Kenny Burgos MD Dictated Date/Time: 12/20/23 12:01 pm Reviewed By: Kenny Burgos MD Signed By: Kenny Burgos MD Signed Date/Time: 12/20/23 12:01 pm Transcribed By: CSFredrick Labor Operator Date/Time: 12/20/23 11:51 am Elijah: Omayra Bernal NP IMG BI PROCEDURES Final Result * (ABNORMAL) LIPID PANEL W REFLEX TO DLDL (02/16/2022 3:53 PM EDT) Cholesterol, Total 135 (<200) MG/DL [facility] Triglycerides 194(H) (<150) MG/DL [facility] HDL Cholesterol 43 (>39) MG/DL [facility] LDL Cholesterol Calculated 53 (0-130) MG/DL [facility] Non-HDL Cholesterol 92 (<160) MG/DL [facility] Chol/HDLC Ratio 3.1 (<5.0) [facility] 02/16/2022 3:53 PM EDT [facility] Provider MD LAB BLOOD ORDERABLES Marita l Result [facility] [address] * Colonoscopy (08/09/2018) Colonoscopy REPEAT IN 5 YEARS [facility] Provider MD HEALTH MAINTENANCE Final Result * HPV (12/29/2017) HPV Undetected Undetected, Indeterminate , Quantitative, Not Detected [facility] Provider MD HEALTH MAINTENANCE Final Result * Pap Smear (12/29/2017) Pap smear NILM, HPV NEGATIVE [facility] Provider MD HEALTH MAINTENANCE Final Result from Last 3 Months or Most Recently Relevant to Health Maintenance [place] [address] C3 * Guarantor: Ella Hassan Account Type Relation to Patient Date of Phone Billing Address Dental Self Care Teams Abseiling Instructor Relationship Specialty Start Date End Date Omayra Bernal NP [address] [place] [address] PCP - General Family Medicine 06/28/23
--- OUTSIDE RECORDS SUMMARY | 2025-01-05 08:40 | XMS_ITS | Encounter Summary ---
Author Organization [employer] Address [address] [place] [address] Care Team Providers Care Medical Staff Manager Name Role Phone Angelita Allred Primary Care Provider Unavailab panda Annie Coto Unavailable AyersKristan noe Unavailable [phone] AyersKristan noe Unavailable Omayra Bernal NP Primary Care Provider [phone] Reason for Visit * Reason Onset Date Comments CHW - Transportation 06/09/2023 Pt would li ke a call about scheduling a PT 1 for an upcoming orthopedic appt. Pt states that we usually help coordinate the transportation for her. [phone] Encounter Details Date Type Department Care Team (Late st Contact Info) Description 06/09/2023 Telephone [facility] [address] [place] [address] Candido Suarez FNP CHW - Transportation (Pt would like a call about scheduling a PT 1 for an upcoming orthopedic appt. Pt states that we usually help coordinate the transportation for her. [phone]) Social History Tobacco Use Types Packs/Day Years [...] on filedocumented in this encounter Care Teams Medical Staff Manager Relationship Specialty Start Date End Date Angelita Allred FNP PCP - General Family Medicine 08/25/22 06/27/23 Omayra Bernal NP [address] [place] [address] PCP - General Family Medicine 06/28/23 Annie Coto [address] [place] [address] 03/30/23 03/28/24 [place] [address] [place] [address] 04/23/23 05/16/24 [place], [place] [address] [place] [address] 06/10/23 05/16/24 documented as of this encounter
== END 2025-01-04 08:36 | disposition home or self-care (01) ==
LOC: HO.HOSX 08:35
PROVIDERS: Visit Provider Physician Assistant
DX: Z13.89 Encounter for screening for other disorder (principal)